=== PATIENT | female | born 1940 | race Caucasian/White ===

== ENCOUNTER → 2017-01-06 | Outpatient (CLI) | payer MEDICARE, BC | LOC: MW.CHENT 08:00 | PROVIDERS: ATTEND Otolaryngology | DX: H91.22 Sudden idiopathic hearing loss, left ear (principal); I10 Essential (primary) hypertension | CPT/HCPCS: 99204 ==

== ENCOUNTER 2017-07-20 14:17 | Inpatient (IN) | payer MEDICARE, BC ==
--- NOTE | 2017-07-20 14:27 | EDM.PDOC ---
ED HPI GENERAL MEDICAL PROBLEM - General Stated Complaint: CHEST PAIN Time Seen by Provider: 07/20/17 14:27 Source of Information: Reports: Patient History Limitations: Reports: No Limitations - History of Present Illness INITIAL COMMENTS - FREE TEXT/NARRATIVE: HISTORY AND PHYSICAL: []77-year-old female presenting because of epigastric /chest pain History of Present Illness: [] was seen in [place] started on Protonix daily Pain has worsened over the last 2 days reading 05/27 Patient has chronic atrial fibrillation and is on warfarin Patient has mild dementia As seen in [place] July 07 with elevated INR medication for 2 days then resumed Review of Systems: As per history of present illness and below otherwise all systems reviewed and negative. Past medical history: As per history of present illness and as reviewed below otherwise noncontributory. Surgical history: As per history of present illness and as reviewed below otherwise noncontributory. Social history: No reported history of drug or alcohol abuse. Family history: As per history of present illness and as reviewed below otherwise noncontributory. Physical exam: Alert and oriented female who is quite anxious. Accompanied By her daughter. Patient is very anxious feeling weak. HEENT: Atraumatic, normocehpalic, pupils reactive, negative for conjunctival pallor or scleral icterus, mucous membranes moist, throat clear, neck supple, nontender, trachea midline. Lungs: Clear to auscultation, breath sounds equal bilaterally, chest non tender. Heart: S1S2, regular, negative for clicks, rubs, or JVD. Abdomen: Soft, nondistended, exquisitely tender to mid epigastric with light palpation. Negative for masses or hepatossplenmegaly. Negative for costovertebral tenderness. No rebound no guarding Pelvis: Stable nontender. Genitourinary: Deferred. Rectal: Deferred Extremities: Atraumatic, negative for cords or calf pain. Neurovascular unremarkable. Neuro: Awake, alert, oriented. Cranial nerves II through XII unremarkable. Cerebellum unremarkable. Motor and sensory unremarkable throughout. Exam nonfocal. Patient is quite anxious and fecal Hemoccult was obtained and was mildly positive Have discussed case with Dr. Pepe Pleitez who is in agreement for observation due to weakness, elevated INR, positive fecal Hemoccult Diagnostics: [CBC CMP amylase lipase troponin EKG chest x-ray] Therapeutics: []IV fluid Pepcid GI cocktail Impression: []Epigastric pain Elevated INR/ hypercoagulable state Positive fecal occult Plan: [] Definitive disposition and diagnosis as appropriate pending reevaluation and review of above. Onset: Gradual Duration: Day(s): (3), Getting Worse Location: Reports: Chest, Abdomen Left Chest Pain Score (Numeric/FACES): 10 - Related Data Allergies Allergy/AdvReac Type Severity Reaction Status Date / Time No Known Allergies Allergy Verified 07/20/17 14:41 Home Meds: Home Meds Aspirin [Lo-Dose Aspirin EC] 81 mg PO DAILY 07/20/17 [History] Diltiazem [Cardizem CD] 120 mg PO DAILY 07/20/17 [History] Docusate Sodium 250 mg PO ASDIRECTED 07/20/17 [History] Losartan/Hydrochlorothiazide [Losartan-HCTZ 100-25 MG] 1 tab PO DAILY 07/20/17 [ History] Mag Carb/Al Hydrox/Alginic Ac [Gaviscon Liquid] 1 tsp PO TIDAC 07/20/17 [History ] Pantoprazole Sodium [Protonix] 40 mg PO DAILY 07/20/17 [History] Potassium Chloride [Klor-Con 10] 10 meq PO BID 07/20/17 [History] Warfarin Sodium [Jantoven] 2 mg PO ASDIRECTED 07/20/17 [History] ED ROS GENERAL - Review of Systems Review Of Systems: ROS reveals no pertinent complaints other than HPI. ED EXAM, GENERAL - Physical Exam Exam: See Below (see dictation) Course - Vital Signs Last Recorded V/S: Last Vital Signs Temp 36.9 C 07/20/17 14:33 Pulse 70 07/20/17 15:08 Resp 20 07/20/17 15:08 BP 147/104 H 07/20/17 15:08 Pulse Ox 98 07/20/17 15:08 - Orders/Labs/Meds Orders: Active Orders 24 hr Category Date Time Status Cardiac Monitoring [RC] . DIRECTED Care 07/20/17 14:38 Active EKG Documentation Completion [RC] STAT Care 07/20/17 14:38 Active Fecal Occult Blood Collection [RC] ASDIRECTED Care 07/20/17 15:39 Ordered Oxygen Therapy, ED [RC] ASDIRECTED Care 07/20/17 14:38 Active Chest 1V Frontal [CR] Stat Exams 07/20/17 14:38 Taken CULTURE URINE [RM] Stat Lab 07/20/17 14:38 Uncollected UA W/MICROSCOPIC [URIN] Stat Lab 07/20/17 14:38 Uncollected Sodium Chloride 0.9% [Saline Flush] Med 07/20/17 14:38 Active 10 ml FLUSH ASDIRECTED PRN Sodium Chloride 0.9% [Saline Flush] Med 07/20/17 14:38 Active 2.5 ml FLUSH ASDIRECTED PRN Saline Lock Insert [OM.PC] Stat Oth 07/20/17 14:38 Ordered Medication Orders Sodium Chloride (Saline Flush) 10 ml FLUSH ASDIRECTED PRN PRN Reason: Keep Vein Open Sodium Chloride (Saline Flush) 2.5 ml FLUSH ASDIRECTED PRN PRN Reason: Keep Vein Open Labs: Laboratory Tests 07/20/17 07/20/17 07/20/17 Range/Units 14:30 14:30 14:30 WBC 9.68 (4.0-11.0) K/uL RBC 3.88 L (4.30-5.90) M/uL Hgb 12.4 (12.0-16.0) g/dL Hct 37.5 (36.0-46.0) % MCV 96.6 (80.0-98.0) fL MCH 32.0 (27.0-32.0) pg MCHC 33.1 (31.0-37.0) g/dL RDW Std Deviation 48.7 (28.0-62.0) fl RDW Coeff of [place] 14 (11.0-15.0) % Plt Count 252 (150-400) K/uL MPV 12.20 H (7.40-12.00) fL Neut % (Auto) 74.9 (48.0-80.0) % Lymph % (Auto) 13.6 L (16.0-40.0) % [place] % (Auto) 7.3 (0.0-15.0) % Eos % (Auto) 3.6 (0.0-7.0) % Baso % (Auto) 0.6 (0.0-1.5) % Neut # (Auto) 7.2 H (1.4-5.7) K/uL Lymph # (Auto) 1.3 (0.6-2.4) K/uL [place] # (Auto) 0.7 (0.0-0.8) K/uL Eos # (Auto) 0.4 (0.0-0.7) K/uL Baso # (Auto) 0.1 (0.0-0.1) K/uL Nucleated RBC % 0.0 /100WBC Nucleated RBCs # 0 K/uL INR 6.15 H (0.86-1.11) Sodium 140 (136-146) mmol/L Potassium 3.3 L (3.5-5.1) mmol/L Chloride 106 (98-110) mmol/L Carbon Dioxide 24 (21-31) mmol/L BUN 17 (6.0-23.0) mg/dL Creatinine 1.3 (0.6-1.5) mg/dL Est Cr Clr Drug Dosing 29.03 mL/min Estimated GFR (MDRD) 39.5 ml/min Glucose 129 H (60-110) mg/dL Calcium 9.1 (8.8-10.8) mg/dL Total Bilirubin 2.2 H (0.1-1.5) mg/dL AST 24 (5-40) IU/L ALT 49 (8-54) IU/L Alkaline Phosphatase 82 (40-150) Troponin I < 0.10 (0.0-0.29) NG/ML Total Protein 7.0 (6.0-8.0) g/dL Albumin 3.7 (3.4-4.8) g/dL Globulin 3.3 (2.0-3.5) g/dL Albumin/Globulin Ratio 1.1 L (1.3-2.8) Amylase 39 (10-90) U/L Lipase 28 (7-80) U/L Meds: Medications Generic Name Dose Route Start Last Admin Trade Name Freq PRN Reason Stop Dose Admin Sodium Chloride 10 ml 07/20/17 14:38 Saline Flush FLUSH ASDIRECTED PRN Keep Vein Open Sodium Chloride 2.5 ml 07/20/17 14:38 Saline Flush FLUSH ASDIRECTED PRN Keep Vein Open Discontinued Medications Generic Name Dose Route Start Last Admin Trade Name Freq PRN Reason Stop Dose Admin Al Hydroxide/Mg Hydroxide 15 0 ml 07/20/17 14:42 12/03/17 14:55 ml/ Metoclopramide HCl 5 mg/ PO 07/20/17 14:43 1 each Lidocaine HCl 5 ml ONETIME ONE Administration Famotidine 20 mg 07/20/17 14:37 07/20/17 14:47 Pepcid IVPUSH 07/20/17 14:38 20 mg ONETIME ONE Administration Sodium Chloride 1,000 mls @ 999 mls/hr 07/20/17 14:37 07/20/17 14:45 Normal Saline IV 07/20/17 15:37 999 mls/hr STAT ONE Administration Departure - Departure Time of Disposition: 15:48 Disposition: Refer to Observation Condition: Fair Clinical Impression: Weakness generalized Referrals: Charly Nicole MD [Primary Care Provider] - Additional Instructions: The following information is given to patients seen in the emergency department who are being discharged to home. This information is to outline your options for follow-up care. We provide all patients seen in our emergency department with a follow-up referral. The need for follow-up, as well as the timing and circumstances, are variable depending upon the specifics of your emergency department visit. If you don't have a primary care physician on staff, we will provide you with a referral. We always advise you to contact your personal physician following an emergency department visit to inform them of the circumstance of the visit and for follow-up with them and/or the need for any referrals to a consulting specialist. The emergency department will also refer you to a specialist when appropriate. This referral assures that you have the opportunity for followup care with a specialist. All of these measure are taken in an effort to provide you with optimal care, which includes your followup. Under all circumstances we always encourage you to contact your private physician who remains a resource for coordinating your care. When calling for followup care, please make the office aware that this follow-up is from your recent emergency room visit. If for any reason you are refused follow-up, please contact the [facility] emergency department at and asked to speak to the emergency department charge nurse. - My Orders Last 24 Hours: My Active Orders 07/20/17 14:38 Cardiac Monitoring [RC] . DIRECTED EKG Documentation Completion [RC] STAT Oxygen Therapy, ED [RC] ASDIRECTED Chest 1V Frontal [CR] Stat CULTURE URINE [RM] Stat UA W/MICROSCOPIC [URIN] Stat Sodium Chloride 0.9% [Saline Flush] 10 ml FLUSH ASDIRECTED PRN Sodium Chloride 0.9% [Saline Flush] 2.5 ml FLUSH ASDIRECTED PRN Saline Lock Insert [OM.PC] Stat 07/20/17 15:39 Fecal Occult Blood Collection [RC] ASDIRECTED - Assessment/Plan Last 24 Hours: My Active Orders 07/20/17 14:38 Cardiac Monitoring [RC] . DIRECTED EKG Documentation Completion [RC] STAT Oxygen Therapy, ED [RC] ASDIRECTED Chest 1V Frontal [CR] Stat CULTURE URINE [RM] Stat UA W/MICROSCOPIC [URIN] Stat Sodium Chloride 0.9% [Saline Flush] 10 ml FLUSH ASDIRECTED PRN Sodium Chloride 0.9% [Saline Flush] 2.5 ml FLUSH ASDIRECTED PRN Saline Lock Insert [OM.PC] Stat 07/20/17 15:39 Fecal Occult Blood Collection [RC] ASDIRECTED
[2017-07-20] MEDS ORDERED: Sodium Chloride 0.9% 1,000 ML IV ONE (14:37)
[2017-07-20] MEDS ORDERED: Famotidine 20 MG/2 ML SDV IVPUSH ONE (14:37)
[2017-07-20] MEDS ORDERED: Sodium Chloride 0.9% 2.5 ML Syringe FLUSH PRN (14:38)
[2017-07-20] MEDS ORDERED: Sodium Chloride 0.9% 10 ML Syringe FLUSH PRN (14:38)
[2017-07-20] MEDS ORDERED: Alum Hydrox/Mag Hydrox/Simeth 15 ML, Metoclopramide 5 MG, Lidocaine 2% 5 ML PO ONE ×3 (14:42)
[2017-07-20 15:10] LABS: CHLORIDE,CL 106 mmol/L (98-110); SODIUM,NA 140 mmol/L (136-146)
--- NOTE | 2017-07-20 17:35 | PCM.HP ---
H&P History of Present Illness - General Date of Service: 07/20/17 Admit Problem/Dx: Weakness Source of Information: Patient, Family History Limitations: Reports: No Limitations - History of Present Illness Initial Comments - Free Text/Narative: 77-year-old female presenting to emergency department with generalized weakness and epigastric pain with PMH of A. fib rate controlled on warfarin, hypertension , and GERD. Patient is coming by her daughter who helps with history. They state that her generalized weakness began on June 29 where she was also having some epigastric "heartburn" pain. States that she just felt "ill" with associated generalized muscle aches. This seemed to resolve over the next few days. However , on July 07 she began to have severe epigastric pain as well as some weakness. She did see the clinic in [facility] where labs were drawn showing an elevation of her INR to 5.4. She was given a GI cocktail, prescribed a PPI, and told to hold her warfarin. She did well through but on Friday began to feel "ill" with generalized body ache on Friday07/19/17. This morning she had severe heartburn so her daughter brought her to the emergency room. She states that she gets her INR checked in [facility]. In the emergency department CBC, CMP, and troponin were unremarkable. Chest x- ray showed cardiomegaly and mild interstitial edema. INR was elevated to 6.15. She was also Hemoccult positive. Patient's daughter does bring the paperwork from [facility] which has different instructions then her warfarin pill bottle instructions. Her current pill bottle instructions say to take 1 tab on Friday while taking 1- 1/2 tabs on Friday and Friday. The paperwork from [facility] says 1 tab Friday and half a tab Friday. Patient has no known drug allergies and sees Dr. Nicole at [facility] as her primary care physician. Patient was admitted for generalized weakness. She also has positive stool and elevated INR of 6.15. Left Chest Pain Score (Numeric/FACES): 10 Epigastric Pain Score (Numeric/FACES): 5 - Related Data Allergies/Adverse Reactions: Allergies Allergy/AdvReac Type Severity Reaction Status Date / Time No Known Allergies Allergy Verified 07/20/17 14:41 Home Medications: Home Meds Aspirin [Lo-Dose Aspirin EC] 81 mg PO DAILY 07/20/17 [History] Diltiazem [Cardizem CD] 120 mg PO DAILY 07/20/17 [History] Docusate Sodium 250 mg PO ASDIRECTED 07/20/17 [History] Losartan/Hydrochlorothiazide [Losartan-HCTZ 100-25 MG] 1 tab PO DAILY 07/20/17 [ History] Mag Carb/Al Hydrox/Alginic Ac [Gaviscon Liquid] 1 tsp PO TIDAC 07/20/17 [History ] Pantoprazole Sodium [Protonix] 40 mg PO DAILY 07/20/17 [History] Potassium Chloride [Klor-Con 10] 10 meq PO BID 07/20/17 [History] Warfarin Sodium [Jantoven] 2 mg PO ASDIRECTED 07/20/17 [History] Past Medical History HEENT History: Reports: Impaired Vision Cardiovascular History: Reports: Afib, Hypertension Gastrointestinal History: Reports: GERD - Infectious Disease History Infectious Disease History: Reports: Chicken Pox, Measles, Mumps Social & Family History - Family History Family Medical History: Noncontributory - Tobacco Use Smoking Status *Q: Never Smoker - Recreational Drug Use Recreational Drug Use: No H&P Review of Systems - Review of Systems: Review Of Systems: See Below General: Denies: Fever, Chills, Malaise HEENT: Denies: Dysphasia Pulmonary: Denies: Shortness of Breath, Wheezing Cardiovascular: Denies: Chest Pain, Palpitations Gastrointestinal: Denies: Abdominal Pain, Anorexia, Black Stool Genitourinary: Denies: Dysuria Musculoskeletal: Denies: Neck Pain, Leg Pain Skin: Reports: No Symptoms Psychiatric: Denies: Confusion, Depression, Anxiety Neurological: Denies: Confusion, Dizziness, Headache Exam - Exam Exam: See Below - Vital Signs Vital Signs: Last Vital Signs Temp 98.5 F 07/20/17 14:33 Pulse 75 07/20/17 16:07 Resp 20 07/20/17 16:07 BP 149/92 H 07/20/17 16:07 Pulse Ox 95 07/20/17 16:07 Weight: 77.5 kg - Exam Quality Assessment: DVT Prophylaxis General: Alert, Oriented, Cooperative HEENT: Conjunctiva Clear, EACs Clear, EOMI, Hearing Intact, Mucosa Moist & [place] , Nares Patent, Normal Nasal Septum, Posterior Pharynx Clear, PERRLA Neck: Supple, Trachea Midline, 2 Lungs: Clear to Auscultation, Normal Respiratory Effort Cardiovascular: Regular Rate, Regular Rhythm, Systolic Murmur GI/Abdominal Exam: Normal Bowel Sounds, Soft, Non-Tender, No Organomegaly, No Distention Back Exam: Normal Inspection Extremities: Normal Inspection, Normal Range of Motion, Non-Tender, No Pedal Edema, Normal Capillary Refill Skin: Warm, Dry, Intact Neurological: Cranial Nerves Intact, Reflexes Equal Bilateral Neuro Extensive - Mental Status: Alert, Oriented x3, Normal Mood/Affect, Normal Cognition Neuro Extensive - Motor, Sensory, Reflexes: CN II-XII Intact, Normal Gait, Normal Reflexes Psychiatric: Alert, Normal Affect, Normal Mood - Patient Data Lab Results Last 24 hrs: Laboratory Results - last 24 hr 07/20/17 Range/Units 16:38 Urine Color YELLOW Urine Appearance CLEAR Urine pH 6.0 (5.0-8.0) Ur Specific [place] <= 1.005 (1.001-1.035) Urine Protein NEGATIVE (NEGATIVE) mg/dL Urine Glucose (UA) NEGATIVE (NEGATIVE) mg/dL Urine Ketones NEGATIVE (NEGATIVE) mg/dL Urine Occult Blood MODERATE (NEGATIVE) Urine Nitrite NEGATIVE (NEGATIVE) Urine Bilirubin NEGATIVE (NEGATIVE) Urine Urobilinogen 0.2 (<2.0) EU/dL Ur Leukocyte Esterase NEGATIVE (NEGATIVE) Urine RBC 3-5 (0-2/HPF) Urine WBC 0-3 (0-5/HPF) Ur Epithelial Cells FEW (NONE-FEW) Urine Bacteria FEW (NEGATIVE) Result Diagrams: 07/20/17 14:30 07/20/17 14:30 *Q Meaningful Use (ADM) - VTE *Q VTE Criteria *Q: - Stroke *Q Stroke Criteria *Q: - AMI *Q AMI Criteria *Q: - Problem List (1) Atrial fibrillation with controlled ventricular rate SNOMED Code(s): 25364773 ICD Code: I48.91 - UNSPECIFIED ATRIAL FIBRILLATION Status: Acute Current Visit: Yes (2) Weakness generalized SNOMED Code(s): 06103037 ICD Code: R53.1 - WEAKNESS Status: Acute Current Visit: Yes (3) Hypertension SNOMED Code(s): 32443578 ICD Code: I10 - ESSENTIAL (PRIMARY) HYPERTENSION Status: Acute Current Visit: Yes Problem List Initiated/Reviewed/Updated: Yes Orders Last 24hrs: Medication Orders Sodium Chloride (Saline Flush) 10 ml FLUSH ASDIRECTED PRN PRN Reason: Keep Vein Open Sodium Chloride (Saline Flush) 2.5 ml FLUSH ASDIRECTED PRN PRN Reason: Keep Vein Open Assessment/Plan Comment:: 77 yo female admitted 07/20/17 for generalized weakness and epigastric pain with pmh of a-fib rate controlled on coumadin, Htn, and GERD Generalized weakness: Vague symptoms. May be partial viral or related to her epigastric pain see below will monitor. Epigastric Pain: Cardiac low likely most likely GERD. Patient INR elevated above 6 she may be having some gastric bleeding as well. Did hemoccult in ED which was positive for blood. Will start PPI IV. Will need EGD. Elevated INR: Hold Coumadin. See HPI as patient records from [facility] have different dosing than what was on her prescription bottle they have with them. Bottle 1 tab M,W,F and 1 1/2 tab T, Th, Sat, Sun while [facility] records have 1 tab M,W,F and 1/2 tab T,Th, Sat, Sun. A-fib rate controlled: Holding Coumadin. Placed on Tele Stable now Htn: Home baseline as per patient is in the 150's systolic normally. We will restart her home meds now but may need adjustment as patient status improves. VTE: SCD, hold pharm secondary to hemoccult + stool. Dispo: 1-2 days PCP Yusef
[2017-07-20] MEDS ORDERED: Ondansetron 4 MG Tab.DIS PO PRN (19:12)
[2017-07-20] MEDS ORDERED: Potassium Chloride 20 MEQ Tab.ER PO ONE (19:19)
[2017-07-20] MEDS: Pantoprazole 80 MG in Sodium Chloride 0.9% 100 ML IV SCH (20:27)
[2017-07-20] MEDS: Potassium Chloride 10 MEQ Tab.ER PO SCH (20:28)
[2017-07-21] MEDS: Pantoprazole 80 MG in Sodium Chloride 0.9% 100 ML IV SCH ×2 (05:17→15:32)
[2017-07-21] MEDS: Potassium Chloride 10 MEQ Tab.ER PO SCH ×2 (08:48→20:01)
[2017-07-21] MEDS: Diltiazem 120 MG Cap.CD PO SCH (08:48)
[2017-07-21] MEDS ORDERED: Phytonadione 5 MG Tab PO ONE (08:57)
--- NOTE | 2017-07-21 09:48 | PCM.PN ---
- General Info Date of Service: 07/21/17 Functional Status: Reports: Pain Controlled, Tolerating Diet - Review of Systems General: Reports: No Symptoms HEENT: Reports: No Symptoms Pulmonary: Reports: No Symptoms Cardiovascular: Reports: No Symptoms Gastrointestinal: Reports: No Symptoms Genitourinary: Reports: No Symptoms Musculoskeletal: Reports: No Symptoms Skin: Reports: No Symptoms Neurological: Reports: No Symptoms Psychiatric: Reports: No Symptoms - Patient Data Vitals - Most Recent: Last Vital Signs Temp 98.6 F 07/21/17 08:00 Pulse 79 07/21/17 08:48 Resp 18 07/21/17 08:00 BP 160/72 H 07/21/17 08:48 Pulse Ox 94 L 07/21/17 08:00 Weight - Most Recent: 77.5 kg I&O - Last 24 Hours: Intake & Output 07/20/17 07/21/17 07/21/17 22:59 06:59 14:59 Intake Total 496 Output Total 750 Balance -254 Lab Results Last 24 Hours: Laboratory Results - last 24 hr 07/20/17 07/20/17 07/21/17 Range/Units 16:38 19:33 05:30 WBC 7.74 (4.0-11.0) K/uL RBC 3.57 L (4.30-5.90) M/uL Hgb 11.3 L (12.0-16.0) g/dL Hct 34.6 L (36.0-46.0) % MCV 96.9 (80.0-98.0) fL MCH 31.7 (27.0-32.0) pg MCHC 32.7 (31.0-37.0) g/dL RDW Std Deviation 49.6 (28.0-62.0) fl RDW Coeff of Hannah 14 (11.0-15.0) % Plt Count 208 (150-400) K/uL MPV 11.90 (7.40-12.00) fL Neut % (Auto) 66.2 (48.0-80.0) % Lymph % (Auto) 16.8 (16.0-40.0) % [place] % (Auto) 9.8 (0.0-15.0) % Eos % (Auto) 6.7 (0.0-7.0) % Baso % (Auto) 0.5 (0.0-1.5) % Neut # (Auto) 5.1 (1.4-5.7) K/uL Lymph # (Auto) 1.3 (0.6-2.4) K/uL [place] # (Auto) 0.8 (0.0-0.8) K/uL Eos # (Auto) 0.5 (0.0-0.7) K/uL Baso # (Auto) 0.0 (0.0-0.1) K/uL Nucleated RBC % 0.0 /100WBC Nucleated RBCs # 0 K/uL INR 7.01 H* (0.86-1.11) Sodium (136-146) mmol/L Potassium (3.5-5.1) mmol/L Chloride (98-110) mmol/L Carbon Dioxide (21-31) mmol/L BUN (6.0-23.0) mg/dL Creatinine (0.6-1.5) mg/dL Est Cr Clr Drug Dosing mL/min Estimated GFR (MDRD) ml/min Glucose (60-110) mg/dL Calcium (8.8-10.8) mg/dL Phosphorus (2.4-4.7) mg/dL Magnesium (1.5-2.3) mEq/L Urine Color YELLOW Urine Appearance CLEAR Urine pH 6.0 (5.0-8.0) Ur Specific [place] <= 1.005 (1.001-1.035) Urine Protein NEGATIVE (NEGATIVE) mg/dL Urine Glucose (UA) NEGATIVE (NEGATIVE) mg/dL Urine Ketones NEGATIVE (NEGATIVE) mg/dL Urine Occult Blood MODERATE (NEGATIVE) Urine Nitrite NEGATIVE (NEGATIVE) Urine Bilirubin NEGATIVE (NEGATIVE) Urine Urobilinogen 0.2 (<2.0) EU/dL Ur Leukocyte Esterase NEGATIVE (NEGATIVE) Urine RBC 3-5 (0-2/HPF) Urine WBC 0-3 (0-5/HPF) Ur Epithelial Cells FEW (NONE-FEW) Urine Bacteria FEW (NEGATIVE) 07/21/17 07/21/17 Range/Units 05:30 05:30 WBC (4.0-11.0) K/uL RBC (4.30-5.90) M/uL Hgb (12.0-16.0) g/dL Hct (36.0-46.0) % MCV (80.0-98.0) fL MCH (27.0-32.0) pg MCHC (31.0-37.0) g/dL RDW Std Deviation (28.0-62.0) fl RDW Coeff of Hannah (11.0-15.0) % Plt Count (150-400) K/uL MPV (7.40-12.00) fL Neut % (Auto) (48.0-80.0) % Lymph % (Auto) (16.0-40.0) % [place] % (Auto) (0.0-15.0) % Eos % (Auto) (0.0-7.0) % Baso % (Auto) (0.0-1.5) % Neut # (Auto) (1.4-5.7) K/uL Lymph # (Auto) (0.6-2.4) K/uL [place] # (Auto) (0.0-0.8) K/uL Eos # (Auto) (0.0-0.7) K/uL Baso # (Auto) (0.0-0.1) K/uL Nucleated RBC % /100WBC Nucleated RBCs # K/uL INR 6.86 H (0.86-1.11) Sodium 142 (136-146) mmol/L Potassium 3.7 (3.5-5.1) mmol/L Chloride 110 (98-110) mmol/L Carbon Dioxide 24 (21-31) mmol/L BUN 30 H (6.0-23.0) mg/dL Creatinine 1.3 (0.6-1.5) mg/dL Est Cr Clr Drug Dosing 29.03 mL/min Estimated GFR (MDRD) 39.5 ml/min Glucose 98 (60-110) mg/dL Calcium 8.5 L (8.8-10.8) mg/dL Phosphorus 2.8 (2.4-4.7) mg/dL Magnesium 1.7 (1.5-2.3) mEq/L Urine Color Urine Appearance Urine pH (5.0-8.0) Ur Specific [place] (1.001-1.035) Urine Protein (NEGATIVE) mg/dL Urine Glucose (UA) (NEGATIVE) mg/dL Urine Ketones (NEGATIVE) mg/dL Urine Occult Blood (NEGATIVE) Urine Nitrite (NEGATIVE) Urine Bilirubin (NEGATIVE) Urine Urobilinogen (<2.0) EU/dL Ur Leukocyte Esterase (NEGATIVE) Urine RBC (0-2/HPF) Urine WBC (0-5/HPF) Ur Epithelial Cells (NONE-FEW) Urine Bacteria (NEGATIVE) [place] Results Last 24 Hours: Microbiology 07/20/17 22:34 Influenza Type A Antigen Screen - Final Nasopharyngeal Swab - Nare, Left NEGATIVE INFLUENZA A VIRUS AG Influenza Type B Antigen Screen - Final NEGATIVE INFLUENZA B VIRUS AG Med Orders - Current: Current Medications Acetaminophen (Tylenol) 650 mg PO Q4H PRN PRN Reason: Pain (Mild 1-3)/fever Diltiazem HCl (Cardizem Cd) 120 mg PO DAILY [facility] Last Admin: 07/21/17 08:48 Dose: 120 mg Pantoprazole Sodium 80 mg/ (Sodium Chloride) 100 mls @ 10 mls/hr IV Q10H [facility] Last Admin: 07/21/17 05:17 Dose: 10 mls/hr Ondansetron HCl (Zofran Odt) 4 mg PO Q4H PRN PRN Reason: nausea, able to take PO Potassium Chloride (Klor-Con 10) 10 meq PO BID [facility] Last Admin: 07/21/17 08:48 Dose: 10 meq Sodium Chloride (Saline Flush) 10 ml FLUSH ASDIRECTED PRN PRN Reason: Keep Vein Open Sodium Chloride (Saline Flush) 2.5 ml FLUSH ASDIRECTED PRN PRN Reason: Keep Vein Open Discontinued Medications Al Hydroxide/Mg Hydroxide 15 ml/ Metoclopramide HCl 5 mg/Lidocaine HCl 5 ml 0 ml PO ONETIME ONE Stop: 07/20/17 14:43 Last Admin: 07/20/17 14:55 Dose: 1 each Famotidine (Pepcid) 20 mg IVPUSH ONETIME ONE Stop: 07/20/17 14:38 Last Admin: 07/20/17 14:47 Dose: 20 mg Sodium Chloride (Normal Saline) 1,000 mls @ 999 mls/hr IV STAT ONE Stop: 07/20/17 15:37 Last Admin: 07/20/17 14:45 Dose: 999 mls/hr Phytonadione (Mephyton) 5 mg PO ONETIME ONE Stop: 07/21/17 08:58 Phytonadione (Aquamephyton) 5 mg SUBCUT ONETIME ONE Stop: 07/21/17 09:13 Potassium Chloride (Klor-Con M20) 40 meq PO ONETIME ONE Stop: 07/20/17 19:20 Last Admin: 07/20/17 19:54 Dose: 40 meq - Exam General: Alert, Oriented HEENT: Pupils Equal, EOMI Neck: Supple Lungs: Decreased Breath Sounds Cardiovascular: Regular Rate, Regular Rhythm GI/Abdominal Exam: Normal Bowel Sounds, Soft Back Exam: Normal Inspection Extremities: Normal Inspection Skin: Warm, Dry, Intact Neurological: No New Focal Deficit Psy/Mental Status: Alert, Normal Affect, Normal Mood - Problem List Review Problem List Initiated/Reviewed/Updated: Yes - Plan Plan:: 77 yo female admitted 07/20/17 for generalized weakness and epigastric pain with pmh of a-fib rate controlled on coumadin, Htn, and GERD Generalized weakness: Vague symptoms. May be partial viral or related to her epigastric pain see below will monitor. Epigastric Pain: Cardiac low likely most likely GERD/gastritis. hemoccult positive for blood. Will start PPI IV. HB 11.3. Will need EGD as outpatient. Currently no evidence of bleeding Elevated INR: Hold Coumadin. No evidence of bleeding. INR 6.87: vitamin K s/c 5 mg x 1 since no oral vitamin K available. Recheck INR in am. A-fib rate controlled: Holding Coumadin. Placed on Tele Stable now Htn: Home baseline as per patient is in the 150's systolic normally. We will restart her home meds now but may need adjustment as patient status improves. VTE: SCD, hold pharm secondary to hemoccult + stool. Dispo: 1-2 days PCP Yusef
[2017-07-21] MEDS: Acetaminophen 325 MG Tab PO PRN (15:40)
--- NOTE | 2017-07-21 15:59 | CR ---
EXAM DATE: 07/20/17 PATIENT'S AGE: 77 Patient: VITALY ESTRADA Facility: [place], [place] Site . Site : [id number] Study: XRay Chest [id number] 3:20:01 PM Ordering Physician: Doctor Spencer Final Report: INDICATION: pain/sob INDICATION: Pain/shortness of breath. TECHNIQUE: Chest 1 view. COMPARISON: None FINDINGS: Cardiovascular and mediastinum: Cardiac enlargement, which may be exaggerated by portable technique. Mediastinum is within normal limits. Lungs and pleural space: Interstitial type opacities with an apicobasilar gradient. Edema is suspected. No sign of mass. No sign of pleural effusion. No pneumothorax. Bones and soft tissues: No significant findings. IMPRESSION: 1. Cardiomegaly. 2. Mild interstitial edema. Dictated by Josiah Greenberg MD @ 07/20/2017 3:47:19 PM Dictated by: Josiah Greenberg MD @ 07/20/2017 15:47:28 (Electronic Signature) Report Signed by Proxy. [facility]
[2017-07-21] MEDS ORDERED: Hydrochlorothiazide/Losartan 12.5-50 mg Tab PO ONE (23:40)
[2017-07-22] MEDS: Pantoprazole 80 MG in Sodium Chloride 0.9% 100 ML IV SCH ×3 (01:44→20:15)
[2017-07-22] MEDS: Acetaminophen 325 MG Tab PO PRN (05:13)
--- NOTE | 2017-07-22 08:35 | PCM.PN ---
- General Info Date of Service: 07/22/17 Subjective Update: c/o of epigastrium pain. She seems anxious and worried. - Review of Systems General: Reports: No Symptoms HEENT: Reports: No Symptoms Pulmonary: Reports: No Symptoms Cardiovascular: Reports: No Symptoms Gastrointestinal: Reports: Abdominal Pain, Other (epigastric) Musculoskeletal: Reports: No Symptoms Skin: Reports: No Symptoms Neurological: Reports: No Symptoms Psychiatric: Reports: No Symptoms - Patient Data Vitals - Most Recent: Last Vital Signs Temp 97.4 F 07/22/17 04:00 Pulse 105 H 07/22/17 04:00 Resp 20 07/22/17 04:00 BP 154/106 H 07/22/17 05:00 Pulse Ox 89 L 07/22/17 04:00 Weight - Most Recent: 77.5 kg I&O - Last 24 Hours: Intake & Output 07/21/17 07/22/17 07/22/17 22:59 06:59 14:59 Intake Total 1350 900 Output Total 1050 1700 Balance 300 -800 Lab Results Last 24 Hours: Laboratory Results - last 24 hr 07/22/17 07/22/17 07/22/17 Range/Units 04:53 04:53 04:53 WBC 10.86 (4.0-11.0) K/uL RBC 3.76 L (4.30-5.90) M/uL Hgb 11.8 L (12.0-16.0) g/dL Hct 36.2 (36.0-46.0) % MCV 96.3 (80.0-98.0) fL MCH 31.4 (27.0-32.0) pg MCHC 32.6 (31.0-37.0) g/dL RDW Std Deviation 47.6 (28.0-62.0) fl RDW Coeff of Hannah 14 (11.0-15.0) % Plt Count 215 (150-400) K/uL MPV 12.90 H (7.40-12.00) fL Neut % (Auto) 75.2 (48.0-80.0) % Lymph % (Auto) 9.9 L (16.0-40.0) % [place] % (Auto) 8.5 (0.0-15.0) % Eos % (Auto) 5.8 (0.0-7.0) % Baso % (Auto) 0.6 (0.0-1.5) % Neut # (Auto) 8.2 H (1.4-5.7) K/uL Lymph # (Auto) 1.1 (0.6-2.4) K/uL [place] # (Auto) 0.9 H (0.0-0.8) K/uL Eos # (Auto) 0.6 (0.0-0.7) K/uL Baso # (Auto) 0.1 (0.0-0.1) K/uL Nucleated RBC % 0.0 /100WBC Nucleated RBCs # 0 K/uL INR 5.20 H (0.86-1.11) Sodium 140 (136-146) mmol/L Potassium 3.1 L (3.5-5.1) mmol/L Chloride 107 (98-110) mmol/L Carbon Dioxide 24 (21-31) mmol/L BUN 26 H (6.0-23.0) mg/dL Creatinine 1.0 (0.6-1.5) mg/dL Est Cr Clr Drug Dosing 37.73 mL/min Estimated GFR (MDRD) 53.5 ml/min Glucose 105 (60-110) mg/dL Calcium 9.1 (8.8-10.8) mg/dL [place] Results Last 24 Hours: Microbiology 07/20/17 16:38 Urine Culture - Final Urine, Clean Catch MIXED JUSTIN >100,000 CFU/ML 07/21/17 06:20 Stool Occult Blood ([place]) - Final Stool / Feces - Stool, Formed NEGATIVE OCCULT BLOOD Med Orders - Current: Current Medications Acetaminophen (Tylenol) 650 mg PO Q4H PRN PRN Reason: Pain (Mild 1-3)/fever Last Admin: 07/22/17 05:13 Dose: 650 mg Diltiazem HCl (Cardizem Cd) 120 mg PO DAILY [facility] Last Admin: 07/21/17 08:48 Dose: 120 mg HCTZ/Losartan Potassium (Hyzaar 50-12.5 Mg) 2 tab PO DAILY [facility] Pantoprazole Sodium 80 mg/ (Sodium Chloride) 100 mls @ 10 mls/hr IV Q10H [facility] Last Admin: 07/22/17 01:44 Dose: 10 mls/hr Ceftriaxone Sodium/Dextrose 1 (gm/ Premix) 50 mls @ 100 mls/hr IV Q24H [facility] Ondansetron HCl (Zofran Odt) 4 mg PO Q4H PRN PRN Reason: nausea, able to take PO Potassium Chloride (Klor-Con 10) 10 meq PO BID [facility] Last Admin: 07/21/17 20:01 Dose: 10 meq Sodium Chloride (Saline Flush) 10 ml FLUSH ASDIRECTED PRN PRN Reason: Keep Vein Open Sodium Chloride (Saline Flush) 2.5 ml FLUSH ASDIRECTED PRN PRN Reason: Keep Vein Open Discontinued Medications Aspirin (Halfprin) 81 mg PO DAILY [facility] Al Hydroxide/Mg Hydroxide 15 ml/ Metoclopramide HCl 5 mg/Lidocaine HCl 5 ml 0 ml PO ONETIME ONE Stop: 07/20/17 14:43 Last Admin: 07/20/17 14:55 Dose: 1 each Famotidine (Pepcid) 20 mg IVPUSH ONETIME ONE Stop: 07/20/17 14:38 Last Admin: 07/20/17 14:47 Dose: 20 mg HCTZ/Losartan Potassium (Hyzaar 50-12.5 Mg) 2 tab PO STAT ONE Stop: 07/21/17 23:41 Last Admin: 07/22/17 00:09 Dose: 2 tab Sodium Chloride (Normal Saline) 1,000 mls @ 999 mls/hr IV STAT ONE Stop: 07/20/17 15:37 Last Admin: 07/20/17 14:45 Dose: 999 mls/hr Pantoprazole Sodium (Protonix) 40 mg PO DAILY [facility] Phytonadione (Mephyton) 5 mg PO ONETIME ONE Stop: 07/21/17 08:58 Last Admin: 07/21/17 10:20 Dose: Not Given Phytonadione (Aquamephyton) 5 mg SUBCUT ONETIME ONE Stop: 07/21/17 09:13 Last Admin: 07/21/17 09:47 Dose: 5 mg Phytonadione (Aquamephyton) 5 mg SUBCUT ONETIME ONE Stop: 07/22/17 08:22 Potassium Chloride (Klor-Con M20) 40 meq PO ONETIME ONE Stop: 07/20/17 19:20 Last Admin: 07/20/17 19:54 Dose: 40 meq - Exam General: Alert, Oriented HEENT: Pupils Equal, EOMI Lungs: Decreased Breath Sounds Cardiovascular: Regular Rate, Regular Rhythm GI/Abdominal Exam: Normal Bowel Sounds, Soft Back Exam: Normal Inspection Extremities: Normal Inspection Skin: Warm, Dry, Intact Neurological: No New Focal Deficit Psy/Mental Status: Alert, Normal Affect, Normal Mood - Problem List & Annotations (1) UTI (urinary tract infection) SNOMED Code(s): 97680065 Code(s): N39.0 - URINARY TRACT INFECTION, SITE NOT SPECIFIED Status: Acute Current Visit: Yes - Problem List Review Problem List Initiated/Reviewed/Updated: Yes - My Orders Last 24 Hours: My Active Orders 07/22/17 08:30 cefTRIAXone [Rocephin] 1,000 mg Sodium Chloride 0.9% [Normal Saline] 50 ml IV Q24H - Plan Plan:: 77 yo female admitted 07/20/17 for generalized weakness and epigastric pain with pmh of a-fib rate controlled on coumadin, Htn, and GERD Generalized weakness: most likely UTI: start rocephin. urine culture Greater than 100,000 awaiting sensitivities. Epigastric Pain: Cardiac low likely most likely GERD/gastritis. PPI IV. HB 11.8. Will need EGD as outpatient. Currently no evidence of bleeding Elevated INR: Hold Coumadin. No evidence of bleeding. INR 5.20: vitamin K s/c 5 mg x 1. She received one dose yesterday. Recheck INR in am. A-fib rate controlled: Holding Coumadin. Placed on Telemetry: no arrhythmias noted. HTN: Home baseline as per patient is in the 150's systolic normally. We will restart her home meds now but may need adjustment as patient status improves. VTE: SC Dispo: 1-2 days PCP Yusef Washington spoke to the daughter today where she stated that her INR has been in range of 7 since June 27. She was taken to ED on jul 14 in [facility] and she was told resumed warfarin.
[2017-07-22] MEDS ORDERED: Potassium Chloride 20 MEQ Tab.ER PO ONE (08:51)
[2017-07-22] MEDS: Diltiazem 120 MG Cap.CD PO SCH (08:57)
[2017-07-22] MEDS: Potassium Chloride 10 MEQ Tab.ER PO SCH ×2 (08:57→20:00)
[2017-07-22] MEDS: Hydrochlorothiazide/Losartan 12.5-50 mg Tab PO SCH (08:57)
[2017-07-22] MEDS ORDERED: Aspirin 81 MG Tab.EC PO SCH (09:00)
[2017-07-22] MEDS ORDERED: Pantoprazole 40 MG Tab.CR PO SCH (09:00)
[2017-07-22] MEDS: cefTRIAXone 1 GM in Premix Bag 1 BAG IV SCH (09:25)
[2017-07-22] MEDS ORDERED: cloNIDine 0.1 MG Tab PO ONE (20:31)
[2017-07-23] MEDS: Pantoprazole 80 MG in Sodium Chloride 0.9% 100 ML IV SCH (06:21)
[2017-07-23] MEDS: cefTRIAXone 1 GM in Premix Bag 1 BAG IV SCH (07:58)
[2017-07-23] MEDS: Potassium Chloride 10 MEQ Tab.ER PO SCH (08:01)
[2017-07-23] MEDS: Diltiazem 120 MG Cap.CD PO SCH (08:02)
[2017-07-23] MEDS: Hydrochlorothiazide/Losartan 12.5-50 mg Tab PO SCH (08:03)
[2017-07-23] MEDS ORDERED: Potassium Chloride 10% 20 MEQ/15 ML Soln 30 ML UD Cup PO ONE (08:38)
--- NOTE | 2017-07-23 10:33 | PCM.DCSUM1 ---
Discharge Summary - Hospital Course Free Text/Narrative:: 77-year-old female presenting to emergency department with generalized weakness and epigastrium pain with PMH of A. fib rate controlled on warfarin, hypertension, and GERD. She states that her generalized weakness began on June 29 where she was also having some epigastric "heartburn" pain. States that she just felt "ill" with associated generalized muscle aches. This seemed to resolve over the next few days. However, on July 07 she began to have severe epigastric pain as well as some weakness. She did see the clinic in [facility] where labs were drawn showing an elevation of her INR to 5.4. She was given a GI cocktail, prescribed a PPI, and told to hold her warfarin. She did well through but on Friday began to feel "ill" with generalized body ache on Friday07/19/17. This morning she had severe heartburn so her daughter brought her to the emergency room. She states that she gets her INR checked in [facility] which has been elevated around 7-9 for the past month. Patient's daughter does bring the paperwork from [facility] which has different instructions then her warfarin pill bottle instructions. Her current pill bottle instructions say to take 1 tab on Friday while taking 1- 1/2 tabs on Friday and Friday. The paperwork from [facility] says 1 tab Friday and half a tab Friday. In the emergency department CBC, CMP, and troponin were unremarkable. Chest x-ray showed cardiomegaly and mild interstitial edema. INR was elevated to 6.15. She was also Hemoccult positive. Her HB on admission 12.4. Her Coumadin was held. IV protonix was started. Her INR is elevated to 7.01. She was given vitamin K SC 5 mg x1 since there is was not oral K available. Her INR was decreased to 5.20 where the next day another vitamin K 5mg sc given. She did not have active bleed. She had a repeat hemoccult which was negative. Her Hemoglobin was 11.8. Her UA was negative but she had a positive urine culture. She was started on Rocephin. Her epigastrium pain improved. Her potassium is around 3 during hospitalization. It was repleted daily. Her Hb is 11.2 on the day discharge. INR 1.90. She is discharged in stable condition. Her daughter will manage her medications and give her a pill box so she takes her medications appropriately. She is to follow with Dr. Nguyen next week. She is to have EGD done as outpatient where an appointment was scheduled. Discharge DX Epigastrium pain elevated INR weakness UTI Anemia Discharge medications Restart coumadin 1 mg po daily KCL 40 mg PO QD x 5 days until further evaluation by PCP. Increase her home medication of protonix 40 mg po bid. Keflex 500 mg po bid x 5 days. - Discharge Data Discharge Date: 07/23/17 Discharge Disposition: Home, Self-Care 01 Condition: Fair - Discharge Diagnosis/Problem(s) (1) UTI (urinary tract infection) SNOMED Code(s): 03814928 ICD Code: N39.0 - URINARY TRACT INFECTION, SITE NOT SPECIFIED Status: Acute Current Visit: Yes - Patient Instructions Diet: Heart Healthy Diet Activity: As Tolerated Driving: Do Not Drive Notify Provider of: Fever, Increased Pain, Swelling and Redness, Drainage, Nausea and/or Vomiting - Discharge Plan Prescriptions/Med Rec: Cephalexin [Keflex] 500 mg PO BID #10 capsule Pantoprazole Sodium [Protonix] 40 mg PO BID #60 tablet. Potassium Chloride [Klor-Con 10] 40 meq PO WITHBREAKFAST #5 tab.er Warfarin [Coumadin] 1 mg PO DAILY #30 tablet Home Medications: Home Meds Aspirin [Lo-Dose Aspirin EC] 81 mg PO DAILY 07/20/17 [History] Diltiazem [Cardizem CD] 120 mg PO DAILY 07/20/17 [History] Docusate Sodium 250 mg PO ASDIRECTED 07/20/17 [History] Losartan/Hydrochlorothiazide [Losartan-HCTZ 100-25 MG] 1 tab PO DAILY 07/20/17 [ History] Mag Carb/Al Hydrox/Alginic Ac [Gaviscon Liquid] 1 tsp PO TIDAC 07/20/17 [History ] Cephalexin [Keflex] 500 mg PO BID #10 capsule 07/23/17 [Rx] Pantoprazole Sodium [Protonix] 40 mg PO BID #60 tablet. 07/23/17 [Rx] Potassium Chloride [Klor-Con 10] 40 meq PO WITHBREAKFAST #5 tab.er 07/23/17 [Rx] Warfarin [Coumadin] 1 mg PO DAILY #30 tablet 07/23/17 [Rx] Patient Handouts: Esophagogastroduodenoscopy, Potassium Salts tablets, extended -release tablets or capsules, Heart-Healthy Eating Plan, [id number], Weakness , [id number], Warfarin tablets, Cephalexin tablets or capsules, Pantoprazole tablets Referrals: [facility] [Outside] Charly Nicole MD [Primary Care Provider] - 07/31/17 10:30 am - General Info Date of Service: 07/23/17 - Review of Systems General: Reports: No Symptoms HEENT: Reports: No Symptoms Pulmonary: Reports: No Symptoms Cardiovascular: Reports: No Symptoms Gastrointestinal: Reports: Other (episgastric pain improved) Genitourinary: Reports: No Symptoms Musculoskeletal: Reports: No Symptoms Skin: Reports: No Symptoms Neurological: Reports: No Symptoms Psychiatric: Reports: No Symptoms - Patient Data Vitals - Most Recent: Last Vital Signs Temp 98.8 F 07/23/17 08:00 Pulse 86 07/23/17 08:02 Resp 16 07/23/17 08:00 BP 153/76 H 07/23/17 08:02 Pulse Ox 96 07/23/17 08:00 Weight - Most Recent: 76.3 kg I&O - Last 24 hours: Intake & Output 07/22/17 07/23/17 07/23/17 22:59 06:59 14:59 Intake Total 708 553 Output Total 1450 1220 Balance -042 -747 Lab Results - Last 24 hrs: Laboratory Results - last 24 hr 07/23/17 07/23/17 07/23/17 Range/Units 04:41 04:41 04:41 WBC 9.57 (4.0-11.0) K/uL RBC 3.57 L (4.30-5.90) M/uL Hgb 11.2 L (12.0-16.0) g/dL Hct 34.1 L (36.0-46.0) % MCV 95.5 (80.0-98.0) fL MCH 31.4 (27.0-32.0) pg MCHC 32.8 (31.0-37.0) g/dL RDW Std Deviation 47.0 (28.0-62.0) fl RDW Coeff of Hannah 14 (11.0-15.0) % Plt Count 205 (150-400) K/uL MPV 12.40 H (7.40-12.00) fL Neut % (Auto) 70.2 (48.0-80.0) % Lymph % (Auto) 13.7 L (16.0-40.0) % [place] % (Auto) 8.9 (0.0-15.0) % Eos % (Auto) 6.6 (0.0-7.0) % Baso % (Auto) 0.6 (0.0-1.5) % Neut # (Auto) 6.7 H (1.4-5.7) K/uL Lymph # (Auto) 1.3 (0.6-2.4) K/uL [place] # (Auto) 0.9 H (0.0-0.8) K/uL Eos # (Auto) 0.6 (0.0-0.7) K/uL Baso # (Auto) 0.1 (0.0-0.1) K/uL Nucleated RBC % 0.0 /100WBC Nucleated RBCs # 0 K/uL INR 1.90 H (0.86-1.11) Sodium 141 (136-146) mmol/L Potassium 3.0 L (3.5-5.1) mmol/L Chloride 105 (98-110) mmol/L Carbon Dioxide 26 (21-31) mmol/L BUN 25 H (6.0-23.0) mg/dL Creatinine 1.0 (0.6-1.5) mg/dL Est Cr Clr Drug Dosing 37.73 mL/min Estimated GFR (MDRD) 53.5 ml/min Glucose 96 (60-110) mg/dL Calcium 8.8 (8.8-10.8) mg/dL Med Orders - Current: Current Medications Acetaminophen (Tylenol) 650 mg PO Q4H PRN PRN Reason: Pain (Mild 1-3)/fever Last Admin: 07/22/17 05:13 Dose: 650 mg Diltiazem HCl (Cardizem Cd) 120 mg PO DAILY [facility] Last Admin: 07/23/17 08:02 Dose: 120 mg HCTZ/Losartan Potassium (Hyzaar 50-12.5 Mg) 2 tab PO DAILY [facility] Last Admin: 07/23/17 08:03 Dose: 2 tab Pantoprazole Sodium 80 mg/ (Sodium Chloride) 100 mls @ 10 mls/hr IV Q10H [facility] Last Admin: 07/23/17 06:21 Dose: 10 mls/hr Ceftriaxone Sodium/Dextrose 1 (gm/ Premix) 50 mls @ 100 mls/hr IV Q24H [facility] Last Admin: 07/23/17 07:58 Dose: 100 mls/hr Ondansetron HCl (Zofran Odt) 4 mg PO Q4H PRN PRN Reason: nausea, able to take PO Potassium Chloride (Klor-Con 10) 10 meq PO BID [facility] Last Admin: 07/23/17 08:01 Dose: 10 meq Sodium Chloride (Saline Flush) 10 ml FLUSH ASDIRECTED PRN PRN Reason: Keep Vein Open Sodium Chloride (Saline Flush) 2.5 ml FLUSH ASDIRECTED PRN PRN Reason: Keep Vein Open Discontinued Medications Aspirin (Halfprin) 81 mg PO DAILY [facility] Clonidine HCl (Catapres) 0.2 mg PO ONETIME ONE Stop: 07/22/17 20:32 Last Admin: 07/22/17 21:04 Dose: 0.2 mg Al Hydroxide/Mg Hydroxide 15 ml/ Metoclopramide HCl 5 mg/Lidocaine HCl 5 ml 0 ml PO ONETIME ONE Stop: 07/20/17 14:43 Last Admin: 07/20/17 14:55 Dose: 1 each Famotidine (Pepcid) 20 mg IVPUSH ONETIME ONE Stop: 07/20/17 14:38 Last Admin: 07/20/17 14:47 Dose: 20 mg HCTZ/Losartan Potassium (Hyzaar 50-12.5 Mg) 2 tab PO STAT ONE Stop: 07/21/17 23:41 Last Admin: 07/22/17 00:09 Dose: 2 tab Sodium Chloride (Normal Saline) 1,000 mls @ 999 mls/hr IV STAT ONE Stop: 07/20/17 15:37 Last Admin: 07/20/17 14:45 Dose: 999 mls/hr Pantoprazole Sodium (Protonix) 40 mg PO DAILY [facility] Phytonadione (Mephyton) 5 mg PO ONETIME ONE Stop: 07/21/17 08:58 Last Admin: 07/21/17 10:20 Dose: Not Given Phytonadione (Aquamephyton) 5 mg SUBCUT ONETIME ONE Stop: 07/21/17 09:13 Last Admin: 07/21/17 09:47 Dose: 5 mg Phytonadione (Aquamephyton) 5 mg SUBCUT ONETIME ONE Stop: 07/22/17 08:22 Last Admin: 07/22/17 10:54 Dose: 5 mg Potassium Chloride (Klor-Con M20) 40 meq PO ONETIME ONE Stop: 07/20/17 19:20 Last Admin: 07/20/17 19:54 Dose: 40 meq Potassium Chloride (Klor-Con M20) 40 meq PO ONETIME ONE Stop: 07/22/17 08:52 Last Admin: 07/22/17 09:26 Dose: 40 meq Potassium Chloride (Potassium Chloride) 40 meq PO ONETIME ONE Stop: 07/23/17 08:39 Last Admin: 07/23/17 10:10 Dose: 40 meq - Exam General: Reports: Alert, Oriented, Cooperative, No Acute Distress HEENT: Reports: Pupils Equal, EOMI Neck: Reports: Supple, Trachea Midline Lungs: Reports: Clear to Auscultation, Normal Respiratory Effort Cardiovascular: Reports: Regular Rate, Regular Rhythm GI/Abdominal Exam: Normal Bowel Sounds, Soft, Non-Tender Back Exam: Reports: Normal Inspection, Full Range of Motion Extremities: Normal Inspection Skin: Reports: Warm, Dry, Intact Neurological: Reports: No New Focal Deficit Psy/Mental Status: Reports: Alert, Normal Affect, Normal Mood *Q Meaningful Use (DIS) - VTE *Q VTE Criteria *Q: - Stroke *Q Stroke Criteria *Q: - AMI *Q AMI Criteria *Q:
== END 2017-07-23 12:10 | disposition home or self-care (01) | DRG 690 ==
LOC: MW.ED 14:17 → MW.MS 16:11 → OBSVTOIN 07-22 08:43 → MW.MS 07-22 18:19
PROVIDERS: ADMIT Family Medicine; ATTEND Family Medicine
DX: N39.0 Urinary tract infection, site not specified (principal); R10.13 Epigastric pain; F03.90 Unspecified dementia, unspecified severity, without behavioral disturbance, psychotic disturbance, mood disturbance, and anxiety; R53.1 Weakness; R79.1 Abnormal coagulation profile; D64.9 Anemia, unspecified; I48.2 Chronic atrial fibrillation; I10 Essential (primary) hypertension; K21.9 Gastro-esophageal reflux disease without esophagitis; Z79.01 Long term (current) use of anticoagulants; Z79.899 Other long term (current) drug therapy
CPT/HCPCS: 36415 ×3; 71010; 80048 ×2; 80053; 81001; 82150; 82272; 83690; 83735; 84100; 84484; 85025 ×3; 85610 ×4; 87086; 87804 ×2; 93005; 96361; 96374; 99285; A9270 ×10; C9113 ×4; J3430; J7030 ×4; J7040; 96365; 96366; 96372; 96375; G0378; J0696

== ENCOUNTER 2017-09-09 12:24 | Inpatient (IN) | payer MEDICARE, BC ==
[2017-09-09] MEDS ORDERED: methylPREDNISolone Sodium Succinate 125 MG/2 ML SDV IVPUSH ONE (12:39)
[2017-09-09] MEDS ORDERED: Albuterol/Ipratropium 3.0-0.5 MG/3 ML Neb Soln NEB ONE (12:39)
[2017-09-09] MEDS ORDERED: Ondansetron 4 MG/2 ML SDV IVPUSH ONE (12:40)
--- NOTE | 2017-09-09 12:41 | EDM.PDOC ---
ED HPI GENERAL MEDICAL PROBLEM - General Chief Complaint: Respiratory Problem Stated Complaint: SHORTNESS OF BREATH, VOMITTING AND COUGHTING Time Seen by Provider: 09/09/17 12:41 Source of Information: Reports: Patient - History of Present Illness INITIAL COMMENTS - FREE TEXT/NARRATIVE: HISTORY AND PHYSICAL: History of present illness: [] Review of systems: As per history of present illness and below otherwise all systems reviewed and negative. Past medical history: As per history of present illness and as reviewed below otherwise noncontributory. Surgical history: As per history of present illness and as reviewed below otherwise noncontributory. Social history: No reported history of drug or alcohol abuse. Family history: As per history of present illness and as reviewed below otherwise noncontributory. Physical exam: HEENT: Atraumatic, normocephalic, pupils reactive, negative for conjunctival pallor or scleral icterus, mucous membranes moist, throat clear, neck supple, nontender, trachea midline. Lungs: Clear to auscultation, breath sounds equal bilaterally, chest nontender. Heart: S1S2, regular, negative for clicks, rubs, or JVD. Abdomen: Soft, nondistended, nontender. Negative for masses or hepatosplenomegaly. Negative for costovertebral tenderness. Pelvis: Stable nontender. Genitourinary: Deferred. Rectal: Deferred. Extremities: Atraumatic, negative for cords or calf pain. Neurovascular unremarkable. Neuro: Awake, alert, oriented. Cranial nerves II through XII unremarkable. Cerebellum unremarkable. Motor and sensory unremarkable throughout. Exam nonfocal. Diagnostics: [CBC CMP cardiac enzymes Chest 1 view EKG Influenza ] Therapeutics: Normal saline 1 25 mL per hour Zofran 8 mg IV DuoNeb Solu-Medrol Lasix 20 mg IV ] Coumadin Impression: Nausea vomiting Shortness of breath CHF Chronic history of baseline Supratherapeutic INR ] Definitive disposition and diagnosis as appropriate pending reevaluation and review of above. Generalized Pain Score (Numeric/FACES): 8 - Related Data Allergies Allergy/AdvReac Type Severity Reaction Status Date / Time No Known Allergies Allergy Verified 07/20/17 14:41 Home Meds: Home Meds Aspirin [Lo-Dose Aspirin EC] 81 mg PO DAILY 07/20/17 [History] Diltiazem [Cardizem CD] 120 mg PO DAILY 07/20/17 [History] Docusate Sodium 250 mg PO ASDIRECTED 07/20/17 [History] Losartan/Hydrochlorothiazide [Losartan-HCTZ 100-25 MG] 1 tab PO DAILY 07/20/17 [ History] Mag Carb/Al Hydrox/Alginic Ac [Gaviscon Liquid] 1 tsp PO TIDAC 07/20/17 [History ] Cephalexin [Keflex] 500 mg PO BID #10 capsule 07/23/17 [Rx] Pantoprazole Sodium [Protonix] 40 mg PO BID #60 tablet.dr 07/23/17 [Rx] Potassium Chloride [Klor-Con 10] 40 meq PO WITHBREAKFAST #5 tab.er 07/23/17 [Rx] Warfarin [Coumadin] 1 mg PO DAILY #30 tablet 07/23/17 [Rx] Past Medical History HEENT History: Reports: Impaired Vision Cardiovascular History: Reports: Afib, Hypertension Gastrointestinal History: Reports: GERD Neurological History: Reports: Other (See Below) Other Neuro History: Mild dementia - Infectious Disease History Infectious Disease History: Reports: Chicken Pox, Measles, Mumps - Past Surgical History Female Surgical History: Reports: Hysterectomy Musculoskeletal Surgical History: Reports: Knee Replacement, Other (See Below) Other Musculoskeletal Surgeries/Procedures:: left knee replacement Social & Family History - Family History Family Medical History: Noncontributory - Tobacco Use Smoking Status *Q: Never Smoker Used Tobacco, but Quit: Yes Month Tobacco Last Used: 1987 Second Hand Smoke Exposure: No - Caffeine Use Caffeine Use: Reports: Coffee, Soda, Tea - Recreational Drug Use Recreational Drug Use: No ED ROS GENERAL - Review of Systems Review Of Systems: ROS reveals no pertinent complaints other than HPI. ED EXAM, GENERAL - Physical Exam Exam: See Below Course - Vital Signs Last Recorded V/S: Last Vital Signs Temp 97.1 F 09/09/17 12:41 Pulse 107 H 09/09/17 12:41 Resp 18 09/09/17 12:41 BP 169/110 H 09/09/17 12:41 Pulse Ox 92 L 09/09/17 12:41 - Orders/Labs/Meds Orders: Active Orders 24 hr Category Date Time Status EKG Documentation Completion [RC] STAT Care 09/09/17 12:40 Active RT Aerosol Therapy [RC] ASDIRECTED Care 09/09/17 12:40 Active INFLUENZA A+B AG SCREEN [RM] Stat Lab 09/09/17 12:52 Received UA W/MICROSCOPIC [URIN] Stat Lab 09/09/17 12:39 Uncollected Furosemide [Lasix] Med 09/09/17 14:02 Once 20 mg IVPUSH NOW ONE Sodium Chloride 0.9% [Normal Saline] 1,000 ml Med 09/09/17 12:45 Active IV STAT Medication Orders Sodium Chloride (Normal Saline) 1,000 mls @ 125 mls/hr IV STAT BONI Labs: Laboratory Tests 09/09/17 09/09/17 09/09/17 Range/Units 12:55 12:55 12:55 WBC 11.08 H (4.0-11.0) K/uL RBC 3.29 L (4.30-5.90) M/uL Hgb 9.1 L (12.0-16.0) g/dL Hct 28.8 L (36.0-46.0) % MCV 87.5 (80.0-98.0) fL MCH 27.7 (27.0-32.0) pg MCHC 31.6 (31.0-37.0) g/dL RDW Std Deviation 47.0 (28.0-62.0) fl RDW Coeff of Hannah 15 (11.0-15.0) % Plt Count 305 (150-400) K/uL MPV 10.90 (7.40-12.00) fL Neut % (Auto) 81.4 H (48.0-80.0) % Lymph % (Auto) 8.7 L (16.0-40.0) % [place] % (Auto) 8.6 (0.0-15.0) % Eos % (Auto) 0.9 (0.0-7.0) % Baso % (Auto) 0.4 (0.0-1.5) % Neut # (Auto) 9.0 H (1.4-5.7) K/uL Lymph # (Auto) 1.0 (0.6-2.4) K/uL [place] # (Auto) 1.0 H (0.0-0.8) K/uL Eos # (Auto) 0.1 (0.0-0.7) K/uL Baso # (Auto) 0.0 (0.0-0.1) K/uL Nucleated RBC % 0.0 /100WBC Nucleated RBCs # 0 K/uL INR 6.71 Sodium 141 (136-146) mmol/L Potassium 3.5 (3.5-5.1) mmol/L Chloride 107 (98-110) mmol/L Carbon Dioxide 23 (21-31) mmol/L BUN 30 H (6.0-23.0) mg/dL Creatinine 1.2 (0.6-1.5) mg/dL Est Cr Clr Drug Dosing 32.83 mL/min Estimated GFR (MDRD) 43.3 ml/min Glucose 120 H (60-110) mg/dL Calcium 9.2 (8.8-10.8) mg/dL Total Bilirubin 2.5 H (0.1-1.5) mg/dL AST 16 (5-40) IU/L ALT 27 (8-54) IU/L Alkaline Phosphatase 88 (40-150) Creatine Kinase 24 (9-236) IU/L CK-MB (CK-2) 1.6 (0-6.6) ng/ml Troponin I < 0.10 (0.0-0.29) NG/ML B-Natriuretic Peptide (<100) PG/ML Total Protein 6.9 (6.0-8.0) g/dL Albumin 3.5 (3.4-4.8) g/dL Globulin 3.4 (2.0-3.5) g/dL Albumin/Globulin Ratio 1.0 L (1.3-2.8) 09/09/17 Range/Units 12:55 WBC (4.0-11.0) K/uL RBC (4.30-5.90) M/uL Hgb (12.0-16.0) g/dL Hct (36.0-46.0) % MCV (80.0-98.0) fL MCH (27.0-32.0) pg MCHC (31.0-37.0) g/dL RDW Std Deviation (28.0-62.0) fl RDW Coeff of Hannah (11.0-15.0) % Plt Count (150-400) K/uL MPV (7.40-12.00) fL Neut % (Auto) (48.0-80.0) % Lymph % (Auto) (16.0-40.0) % [place] % (Auto) (0.0-15.0) % Eos % (Auto) (0.0-7.0) % Baso % (Auto) (0.0-1.5) % Neut # (Auto) (1.4-5.7) K/uL Lymph # (Auto) (0.6-2.4) K/uL [place] # (Auto) (0.0-0.8) K/uL Eos # (Auto) (0.0-0.7) K/uL Baso # (Auto) (0.0-0.1) K/uL Nucleated RBC % /100WBC Nucleated RBCs # K/uL INR Sodium (136-146) mmol/L Potassium (3.5-5.1) mmol/L Chloride (98-110) mmol/L Carbon Dioxide (21-31) mmol/L BUN (6.0-23.0) mg/dL Creatinine (0.6-1.5) mg/dL Est Cr Clr Drug Dosing mL/min Estimated GFR (MDRD) ml/min Glucose (60-110) mg/dL Calcium (8.8-10.8) mg/dL Total Bilirubin (0.1-1.5) mg/dL AST (5-40) IU/L ALT (8-54) IU/L Alkaline Phosphatase (40-150) Creatine Kinase (9-236) IU/L CK-MB (CK-2) (0-6.6) ng/ml Troponin I (0.0-0.29) NG/ML B-Natriuretic Peptide 971 H (<100) PG/ML Total Protein (6.0-8.0) g/dL Albumin (3.4-4.8) g/dL Globulin (2.0-3.5) g/dL Albumin/Globulin Ratio (1.3-2.8) Meds: Medications Generic Name Dose Route Start Last Admin Trade Name Freq PRN Reason Stop Dose Admin Sodium Chloride 1,000 mls @ 125 mls/hr 09/09/17 12:45 Normal Saline IV STAT BONI Discontinued Medications Generic Name Dose Route Start Last Admin Trade Name Freq PRN Reason Stop Dose Admin Albuterol/Ipratropium 3 ml 09/09/17 12:39 09/09/17 13:00 Duoneb 3.0-0.5 Mg/3 Ml NEB 09/09/17 12:40 3 ml ONETIME ONE Administration Lorazepam 0.5 mg 09/09/17 12:44 09/09/17 13:01 Ativan IVPUSH 09/09/17 12:45 0.5 mg ONETIME ONE Administration Methylprednisolone Sodium Succinate 125 mg 09/09/17 12:39 09/09/17 13:01 Solu-Medrol IVPUSH 09/09/17 12:40 125 mg ONETIME ONE Administration Ondansetron HCl 8 mg 09/09/17 12:40 09/09/17 13:00 Zofran IVPUSH 09/09/17 12:41 8 mg ONETIME ONE Administration Pantoprazole Sodium 80 mg 09/09/17 13:43 Protonix Iv IVPUSH 09/09/17 13:44 .BOLUS ONE Departure - Departure Time of Disposition: 14:03 Disposition: Admitted As Inpatient 64 Condition: Fair Clinical Impression: CHF (congestive heart failure), Supratherapeutic INR - Discharge Information Referrals: PCP,None [Primary Care Provider] - Forms: ED Department Discharge - My Orders Last 24 Hours: My Active Orders 09/09/17 12:39 UA W/MICROSCOPIC [URIN] Stat 09/09/17 12:40 EKG Documentation Completion [RC] STAT RT Aerosol Therapy [RC] ASDIRECTED 09/09/17 12:45 Sodium Chloride 0.9% [Normal Saline] 1,000 ml IV STAT 09/09/17 12:52 INFLUENZA A+B AG SCREEN [RM] Stat 09/09/17 14:02 Furosemide [Lasix] 20 mg IVPUSH NOW ONE - Assessment/Plan Last 24 Hours: My Active Orders 09/09/17 12:39 UA W/MICROSCOPIC [URIN] Stat 09/09/17 12:40 EKG Documentation Completion [RC] STAT RT Aerosol Therapy [RC] ASDIRECTED 09/09/17 12:45 Sodium Chloride 0.9% [Normal Saline] 1,000 ml IV STAT 09/09/17 12:52 INFLUENZA A+B AG SCREEN [RM] Stat 09/09/17 14:02 Furosemide [Lasix] 20 mg IVPUSH NOW ONE
[2017-09-09] MEDS ORDERED: LORazepam 2 MG/ML MDV IVPUSH ONE (12:44)
[2017-09-09] MEDS ORDERED: Sodium Chloride 0.9% 1,000 ML IV SCH (12:45)
--- NOTE | 2017-09-09 13:33 | CR ---
EXAMINATION: Portable chest radiograph. HISTORY: Shortness of breath. FINDINGS: The trachea is midline. Heart is borderline in size. The cardiomediastinal silhouette is within anel l limits. Mild bibasilar atelectasis and/or infiltrate. No pleural effusion or pneumothorax. Osseous structures appear unremarkable. IMPRESSION: No acute cardiopulmonary process. Mild bibasilar atelectasis and/or infiltrate. Correlate for pneumon ia versus edema.
[2017-09-09] MEDS ORDERED: Pantoprazole 40 MG Vial IVPUSH ONE (13:43)
[2017-09-09 13:44] LABS: CHLORIDE,CL 107 mmol/L (98-110); SODIUM,NA 141 mmol/L (136-146)
[2017-09-09] MEDS ORDERED: Furosemide 40 MG/4 ML VIAL IVPUSH ONE ×2 (14:02→19:00)
--- NOTE | 2017-09-09 15:27 | PCM.HP ---
H&P History of Present Illness - General Admit Problem/Dx: Admission Diagnosis/Problem Admission Diagnosis/Problem CHF, Congestive heart failure - History of Present Illness Initial Comments - Free Text/Narative: 77 yo female who presents with three day history of nausea and vomiting. Last night she reported she felt horrible with myalgias and shortness of breath, chest congestion and cough. She denies any leg edema but reports sleeping at about a 45% incline. She denied any fevers, chills, hematemesis, melana or diarrhea. CXR done in ED reported mild bibasilar infiltrate. Patient has a history of admission for GI bleed with supratheraputic INR last month. She was given vitamin K during that admission. Two weeks ago she reported had an INR of around 2. Generalized Pain Score (Numeric/FACES): 8 - Related Data Allergies/Adverse Reactions: Allergies Allergy/AdvReac Type Severity Reaction Status Date / Time No Known Allergies Allergy Verified 07/20/17 14:41 Home Medications: Home Meds Aspirin [Lo-Dose Aspirin EC] 81 mg PO DAILY 07/20/17 [History] Diltiazem [Cardizem CD] 120 mg PO DAILY 07/20/17 [History] Docusate Sodium 250 mg PO ASDIRECTED 07/20/17 [History] Losartan/Hydrochlorothiazide [Losartan-HCTZ 100-25 MG] 1 tab PO DAILY 07/20/17 [ History] Potassium Chloride [Klor-Con 10] 40 meq PO BID 09/09/17 [History] Warfarin Sodium [Jantoven] 2 mg PO DAILY 09/09/17 [History] Past Medical History HEENT History: Reports: Impaired Vision Cardiovascular History: Reports: Afib, Hypertension Gastrointestinal History: Reports: GERD Neurological History: Reports: Other (See Below) Other Neuro History: Mild dementia - Infectious Disease History Infectious Disease History: Reports: Chicken Pox, Measles, Mumps - Past Surgical History Female Surgical History: Reports: Hysterectomy Musculoskeletal Surgical History: Reports: Knee Replacement, Other (See Below) Other Musculoskeletal Surgeries/Procedures:: left knee replacement Social & Family History - Family History Family Medical History: Noncontributory - Tobacco Use Smoking Status *Q: Never Smoker Used Tobacco, but Quit: Yes Month Tobacco Last Used: 1987 Second Hand Smoke Exposure: No - Caffeine Use Caffeine Use: Reports: Coffee, Soda, Tea - Recreational Drug Use Recreational Drug Use: No H&P Review of Systems - Review of Systems: Review Of Systems: ROS reveals no pertinent complaints other than HPI. Exam - Exam Exam: See Below - Vital Signs Vital Signs: Last Vital Signs Temp 36.2 C 09/09/17 12:41 Pulse 107 H 09/09/17 12:41 Resp 18 09/09/17 12:41 BP 169/110 H 09/09/17 12:41 Pulse Ox 92 L 09/09/17 12:41 Weight: 70.307 kg - Exam General: Alert, Oriented Neck: JVD Lungs: Normal Respiratory Effort, Decreased Breath Sounds Cardiovascular: Regular Rate, Regular Rhythm GI/Abdominal Exam: Soft, Non-Tender Extremities: Non-Tender, Pedal Edema (mild) Skin: Warm, Dry, Intact Neurological: No: Focal Deficit - Patient Data Lab Results Last 24 hrs: Laboratory Results - last 24 hr 09/09/17 09/09/17 09/09/17 Range/Units 12:55 12:55 12:55 WBC 11.08 H (4.0-11.0) K/uL RBC 3.29 L (4.30-5.90) M/uL Hgb 9.1 L (12.0-16.0) g/dL Hct 28.8 L (36.0-46.0) % MCV 87.5 (80.0-98.0) fL MCH 27.7 (27.0-32.0) pg MCHC 31.6 (31.0-37.0) g/dL RDW Std Deviation 47.0 (28.0-62.0) fl RDW Coeff of Hannah 15 (11.0-15.0) % Plt Count 305 (150-400) K/uL MPV 10.90 (7.40-12.00) fL Neut % (Auto) 81.4 H (48.0-80.0) % Lymph % (Auto) 8.7 L (16.0-40.0) % Jay % (Auto) 8.6 (0.0-15.0) % Eos % (Auto) 0.9 (0.0-7.0) % Baso % (Auto) 0.4 (0.0-1.5) % Neut # (Auto) 9.0 H (1.4-5.7) K/uL Lymph # (Auto) 1.0 (0.6-2.4) K/uL Jay # (Auto) 1.0 H (0.0-0.8) K/uL Eos # (Auto) 0.1 (0.0-0.7) K/uL Baso # (Auto) 0.0 (0.0-0.1) K/uL Nucleated RBC % 0.0 /100WBC Nucleated RBCs # 0 K/uL INR 6.71 Sodium 141 (136-146) mmol/L Potassium 3.5 (3.5-5.1) mmol/L Chloride 107 (98-110) mmol/L Carbon Dioxide 23 (21-31) mmol/L BUN 30 H (6.0-23.0) mg/dL Creatinine 1.2 (0.6-1.5) mg/dL Est Cr Clr Drug Dosing 32.83 mL/min Estimated GFR (MDRD) 43.3 ml/min Glucose 120 H (60-110) mg/dL Calcium 9.2 (8.8-10.8) mg/dL Total Bilirubin 2.5 H (0.1-1.5) mg/dL AST 16 (5-40) IU/L ALT 27 (8-54) IU/L Alkaline Phosphatase 88 (40-150) Creatine Kinase 24 (9-236) IU/L CK-MB (CK-2) 1.6 (0-6.6) ng/ml Troponin I < 0.10 (0.0-0.29) NG/ML B-Natriuretic Peptide (<100) PG/ML Total Protein 6.9 (6.0-8.0) g/dL Albumin 3.5 (3.4-4.8) g/dL Globulin 3.4 (2.0-3.5) g/dL Albumin/Globulin Ratio 1.0 L (1.3-2.8) 09/09/17 Range/Units 12:55 WBC (4.0-11.0) K/uL RBC (4.30-5.90) M/uL Hgb (12.0-16.0) g/dL Hct (36.0-46.0) % MCV (80.0-98.0) fL MCH (27.0-32.0) pg MCHC (31.0-37.0) g/dL RDW Std Deviation (28.0-62.0) fl RDW Coeff of Hannah (11.0-15.0) % Plt Count (150-400) K/uL MPV (7.40-12.00) fL Neut % (Auto) (48.0-80.0) % Lymph % (Auto) (16.0-40.0) % Jay % (Auto) (0.0-15.0) % Eos % (Auto) (0.0-7.0) % Baso % (Auto) (0.0-1.5) % Neut # (Auto) (1.4-5.7) K/uL Lymph # (Auto) (0.6-2.4) K/uL Jay # (Auto) (0.0-0.8) K/uL Eos # (Auto) (0.0-0.7) K/uL Baso # (Auto) (0.0-0.1) K/uL Nucleated RBC % /100WBC Nucleated RBCs # K/uL INR Sodium (136-146) mmol/L Potassium (3.5-5.1) mmol/L Chloride (98-110) mmol/L Carbon Dioxide (21-31) mmol/L BUN (6.0-23.0) mg/dL Creatinine (0.6-1.5) mg/dL Est Cr Clr Drug Dosing mL/min Estimated GFR (MDRD) ml/min Glucose (60-110) mg/dL Calcium (8.8-10.8) mg/dL Total Bilirubin (0.1-1.5) mg/dL AST (5-40) IU/L ALT (8-54) IU/L Alkaline Phosphatase (40-150) Creatine Kinase (9-236) IU/L CK-MB (CK-2) (0-6.6) ng/ml Troponin I (0.0-0.29) NG/ML B-Natriuretic Peptide 971 H (<100) PG/ML Total Protein (6.0-8.0) g/dL Albumin (3.4-4.8) g/dL Globulin (2.0-3.5) g/dL Albumin/Globulin Ratio (1.3-2.8) Result Diagrams: 09/10/17 13:45 09/10/17 04:41 [place] Results Last 24 hrs: Microbiology 09/09/17 12:52 Influenza Type A Antigen Screen - Final Nasopharyngeal Swab NEGATIVE INFLUENZA A VIRUS AG Influenza Type B Antigen Screen - Final NEGATIVE INFLUENZA B VIRUS AG *Q Meaningful Use (ADM) - VTE *Q VTE Criteria *Q: - Stroke *Q Stroke Criteria *Q: - AMI *Q AMI Criteria *Q: Problem List Initiated/Reviewed/Updated: Yes Orders Last 24hrs: Active Orders 24 hr Category Date Time Status Admission Status [Patient Status] [ADT] Stat ADT 09/09/17 14:05 Active EKG Documentation Completion [RC] STAT Care 09/09/17 12:40 Active RT Aerosol Therapy [RC] ASDIRECTED Care 09/09/17 12:40 Active Echo 2D wo Cont [US] Stat Exams 09/09/17 15:20 Ordered CULTURE BLOOD [BC] Stat Lab 09/09/17 15:17 Ordered CULTURE BLOOD [BC] Stat Lab 09/09/17 15:17 Ordered CULTURE URINE [RM] Routine Lab 09/09/17 15:17 Uncollected UA W/MICROSCOPIC [URIN] Stat Lab 09/09/17 12:39 Uncollected Diltiazem [Cardizem CD] Med 09/10/17 09:00 Ordered 120 mg PO DAILY Furosemide [Lasix] Med 09/09/17 19:00 Once 40 mg IVPUSH NOW ONE Levofloxacin/Dextrose 5%-Water [Levaquin in D5W 750 MG/ Med 09/09/17 15:30 Ordered 150 ML] 750 mg Premix Bag 1 bag IV Q24H Losartan/Hydrochlorothiazide [Losartan-HCTZ 100-25 MG] Med 09/10/17 09:00 Ordered 1 tab PO DAILY Potassium Chloride [Klor-Con 10] Med 09/09/17 21:00 Ordered 40 meq PO BID Blood Culture x2 Reflex Set [OM.PC] Stat Oth 09/09/17 15:17 Ordered Medication Orders Diltiazem HCl (Cardizem Cd) 120 mg PO DAILY BONI Furosemide (Lasix) 40 mg IVPUSH NOW ONE Stop: 09/09/17 19:01 Levofloxacin/Dextrose 750 mg/ (Premix) 150 mls @ 100 mls/hr IV Q24H BONI Non-Formulary Medication (Losartan/Hydrochlorothiazide [Losartan-Hctz 100-25 Mg] ) 1 tab PO DAILY BONI Potassium Chloride (Klor-Con 10) 40 meq PO BID BONI Assessment/Plan Comment:: 77 yo female presenting with signs and symptoms of gastroenteritis with possible pneumonia and CHF. Hypoxia: patient has received lasix, will obtain echocardiogram and monitor on telemetry with supplemental oxygen via [place] Pneumonia: Will give levaquin, cultures pending Supratheraputic INR: will hold coumadin A.fib/HTN: continue diltiazem
[2017-09-09] MEDS ORDERED: Levofloxacin/Dextrose 5%-Water 750 MG in Premix Bag 1 BAG IV SCH (15:30)
[2017-09-09] MEDS ORDERED: Acetaminophen 325 MG Tab PO PRN (15:30)
[2017-09-09] MEDS ORDERED: Albuterol/Ipratropium 3.0-0.5 MG/3 ML Neb Soln NEB PRN (15:30)
[2017-09-09] MEDS ORDERED: Ondansetron 4 MG/2 ML SDV IVPUSH PRN (15:30)
[2017-09-09] MEDS: Levofloxacin/Dextrose 5%-Water 750 MG in Premix Bag 1 BAG IV SCH (16:50)
[2017-09-09] MEDS: Potassium Chloride 10 MEQ Tab.ER PO SCH (20:20)
[2017-09-10] MEDS: Diltiazem 120 MG Cap.CD PO SCH (09:35)
[2017-09-10] MEDS: Potassium Chloride 10 MEQ Tab.ER PO SCH ×2 (09:35→20:15)
[2017-09-10] MEDS: Hydrochlorothiazide/Losartan 12.5-50 mg Tab PO SCH (09:37)
--- NOTE | 2017-09-10 13:40 | PCM.PN ---
- General Info Date of Service: 09/10/17 Subjective Update: Denies shortness of breath, chest pain. Was seen at the bedside saturating well without the use of oxygen supplementation. Patient is concerned about her supratherapeutic INR as she does have a recent history of being hospitalized for this reason along with a GI bleed. Currently however, she denies having any symptoms such as chest pain, palpitations, shortness of breath, leg pain. - Review of Systems General: Reports: Other (See history of present illness) - Patient Data Vitals - Most Recent: Last Vital Signs Temp 37.1 C 09/10/17 12:00 Pulse 107 H 09/10/17 12:00 Resp 18 09/10/17 12:00 BP 152/70 H 09/10/17 12:00 Pulse Ox 94 L 09/10/17 12:00 Weight - Most Recent: 70.307 kg I&O - Last 24 Hours: Intake & Output 09/09/17 09/10/17 09/10/17 22:59 06:59 14:59 Intake Total 320 Output Total 1000 Balance -680 Lab Results Last 24 Hours: Laboratory Results - last 24 hr 09/09/17 09/10/17 09/10/17 Range/Units 15:20 04:41 04:41 WBC 6.71 (4.0-11.0) K/uL RBC 2.99 L (4.30-5.90) M/uL Hgb 8.1 L (12.0-16.0) g/dL Hct 26.4 L (36.0-46.0) % MCV 88.3 (80.0-98.0) fL MCH 27.1 (27.0-32.0) pg MCHC 30.7 L (31.0-37.0) g/dL RDW Std Deviation 47.5 (28.0-62.0) fl RDW Coeff of Hannah 15 (11.0-15.0) % Plt Count 254 (150-400) K/uL MPV 11.10 (7.40-12.00) fL Neut % (Auto) 89.9 H (48.0-80.0) % Lymph % (Auto) 8.9 L (16.0-40.0) % [place] % (Auto) 1.2 (0.0-15.0) % Eos % (Auto) 0.0 (0.0-7.0) % Baso % (Auto) 0.0 (0.0-1.5) % Neut # (Auto) 6.0 H (1.4-5.7) K/uL Lymph # (Auto) 0.6 (0.6-2.4) K/uL [place] # (Auto) 0.1 (0.0-0.8) K/uL Eos # (Auto) 0.0 (0.0-0.7) K/uL Baso # (Auto) 0.0 (0.0-0.1) K/uL Nucleated RBC % 0.0 /100WBC Nucleated RBCs # 0 K/uL INR Sodium 141 (136-146) mmol/L Potassium 4.8 (3.5-5.1) mmol/L Chloride 108 (98-110) mmol/L Carbon Dioxide 24 (21-31) mmol/L BUN 34 H (6.0-23.0) mg/dL Creatinine 1.2 (0.6-1.5) mg/dL Est Cr Clr Drug Dosing 31.45 mL/min Estimated GFR (MDRD) 43.3 ml/min Glucose 139 H (60-110) mg/dL Calcium 8.6 L (8.8-10.8) mg/dL Total Bilirubin 2.1 H (0.1-1.5) mg/dL AST 13 (5-40) IU/L ALT 24 (8-54) IU/L Alkaline Phosphatase 76 (40-150) Total Protein 6.0 (6.0-8.0) g/dL Albumin 3.4 (3.4-4.8) g/dL Globulin 2.6 (2.0-3.5) g/dL Albumin/Globulin Ratio 1.3 (1.3-2.8) Urine Color YELLOW Urine Appearance SLT CLOUDY Urine pH 6.0 (5.0-8.0) Ur Specific [place] 1.010 (1.001-1.035) Urine Protein NEGATIVE (NEGATIVE) mg/dL Urine Glucose (UA) NEGATIVE (NEGATIVE) mg/dL Urine Ketones NEGATIVE (NEGATIVE) mg/dL Urine Occult Blood MODERATE (NEGATIVE) Urine Nitrite NEGATIVE (NEGATIVE) Urine Bilirubin NEGATIVE (NEGATIVE) Urine Urobilinogen 0.2 (<2.0) EU/dL Ur Leukocyte Esterase NEGATIVE (NEGATIVE) Urine RBC 5-7 (0-2/HPF) Urine WBC 0-2 (0-5/HPF) Ur Epithelial Cells MODERATE (NONE-FEW) Urine Bacteria RARE (NEGATIVE) 09/10/17 09/10/17 Range/Units 12:01 12:01 WBC (4.0-11.0) K/uL RBC (4.30-5.90) M/uL Hgb 8.5 L (12.0-16.0) g/dL Hct 27.9 L (36.0-46.0) % MCV (80.0-98.0) fL MCH (27.0-32.0) pg MCHC (31.0-37.0) g/dL RDW Std Deviation (28.0-62.0) fl RDW Coeff of Hannah (11.0-15.0) % Plt Count (150-400) K/uL MPV (7.40-12.00) fL Neut % (Auto) (48.0-80.0) % Lymph % (Auto) (16.0-40.0) % [place] % (Auto) (0.0-15.0) % Eos % (Auto) (0.0-7.0) % Baso % (Auto) (0.0-1.5) % Neut # (Auto) (1.4-5.7) K/uL Lymph # (Auto) (0.6-2.4) K/uL [place] # (Auto) (0.0-0.8) K/uL Eos # (Auto) (0.0-0.7) K/uL Baso # (Auto) (0.0-0.1) K/uL Nucleated RBC % /100WBC Nucleated RBCs # K/uL INR 8.27 H* Sodium (136-146) mmol/L Potassium (3.5-5.1) mmol/L Chloride (98-110) mmol/L Carbon Dioxide (21-31) mmol/L BUN (6.0-23.0) mg/dL Creatinine (0.6-1.5) mg/dL Est Cr Clr Drug Dosing mL/min Estimated GFR (MDRD) ml/min Glucose (60-110) mg/dL Calcium (8.8-10.8) mg/dL Total Bilirubin (0.1-1.5) mg/dL AST (5-40) IU/L ALT (8-54) IU/L Alkaline Phosphatase (40-150) Total Protein (6.0-8.0) g/dL Albumin (3.4-4.8) g/dL Globulin (2.0-3.5) g/dL Albumin/Globulin Ratio (1.3-2.8) Urine Color Urine Appearance Urine pH (5.0-8.0) Ur Specific [place] (1.001-1.035) Urine Protein (NEGATIVE) mg/dL Urine Glucose (UA) (NEGATIVE) mg/dL Urine Ketones (NEGATIVE) mg/dL Urine Occult Blood (NEGATIVE) Urine Nitrite (NEGATIVE) Urine Bilirubin (NEGATIVE) Urine Urobilinogen (<2.0) EU/dL Ur Leukocyte Esterase (NEGATIVE) Urine RBC (0-2/HPF) Urine WBC (0-5/HPF) Ur Epithelial Cells (NONE-FEW) Urine Bacteria (NEGATIVE) Med Orders - Current: Current Medications Acetaminophen (Tylenol) 650 mg PO Q4H PRN PRN Reason: pain Albuterol/Ipratropium (Duoneb 3.0-0.5 Mg/3 Ml) 3 ml NEB Q4HRRT PRN PRN Reason: Shortness Of Breath/wheezing Diltiazem HCl (Cardizem Cd) 120 mg PO DAILY [facility] Last Admin: 09/10/17 09:35 Dose: 120 mg HCTZ/Losartan Potassium (Hyzaar 50-12.5 Mg) 2 tab PO DAILY [facility] Last Admin: 09/10/17 09:37 Dose: 2 tab Levofloxacin/Dextrose 750 mg/ (Premix) 150 mls @ 100 mls/hr IV Q48H [facility] Last Admin: 09/09/17 16:50 Dose: 100 mls/hr Ondansetron HCl (Zofran) 4 mg IVPUSH Q4H PRN PRN Reason: Nausea Potassium Chloride (Klor-Con 10) 40 meq PO BID [facility] Last Admin: 09/10/17 09:35 Dose: 40 meq Discontinued Medications Albuterol/Ipratropium (Duoneb 3.0-0.5 Mg/3 Ml) 3 ml NEB ONETIME ONE Stop: 09/09/17 12:40 Last Admin: 09/09/17 13:00 Dose: 3 ml Furosemide (Lasix) 20 mg IVPUSH NOW ONE Stop: 09/09/17 14:03 Last Admin: 09/09/17 14:09 Dose: 20 mg Furosemide (Lasix) 40 mg IVPUSH NOW ONE Stop: 09/09/17 19:01 Sodium Chloride (Normal Saline) 1,000 mls @ 125 mls/hr IV STAT [facility] Last Admin: 09/09/17 14:10 Dose: 125 mls/hr Levofloxacin/Dextrose 750 mg/ (Premix) 150 mls @ 100 mls/hr IV Q24H [facility] Lorazepam (Ativan) 0.5 mg IVPUSH ONETIME ONE Stop: 09/09/17 12:45 Last Admin: 09/09/17 13:01 Dose: 0.5 mg Methylprednisolone Sodium Succinate (Solu-Medrol) 125 mg IVPUSH ONETIME ONE Stop: 09/09/17 12:40 Last Admin: 09/09/17 13:01 Dose: 125 mg Ondansetron HCl (Zofran) 8 mg IVPUSH ONETIME ONE Stop: 09/09/17 12:41 Last Admin: 09/09/17 13:00 Dose: 8 mg Pantoprazole Sodium (Protonix Iv) 80 mg IVPUSH .BOLUS ONE Stop: 09/09/17 13:44 Last Admin: 09/09/17 17:39 Dose: Not Given Phytonadione (Aquamephyton) 2.5 mg PO ONETIME STA Stop: 09/10/17 13:30 - Exam General: Alert, Oriented Lungs: Clear to Auscultation, Normal Respiratory Effort Cardiovascular: Regular Rate, Regular Rhythm GI/Abdominal Exam: Normal Bowel Sounds, Soft Back Exam: Normal Inspection Extremities: Normal Capillary Refill, Pedal Edema (Trace pedal edema) Psy/Mental Status: Alert, Anxious - Problem List Review Problem List Initiated/Reviewed/Updated: Yes - My Orders Last 24 Hours: My Active Orders 09/10/17 13:30 HEMOGLOBIN/HEMATOCRIT,HH [HEME] Routine 09/10/17 16:00 INR,PT,PROTHROMBIN TIME [COAG] Q4H 09/10/17 20:00 INR,PT,PROTHROMBIN TIME [COAG] Q4H - Plan Plan:: 77 yo female presenting with signs and symptoms of gastroenteritis with possible pneumonia and CHF. Hypoxia: patient has received lasix, will obtain echocardiogram and monitor on telemetry with supplemental oxygen via [place] Pneumonia: Will give levaquin, cultures pending Supratheraputic INR: will hold coumadin A.fib/HTN: continue diltiazem Assessment: #1. Hypoxia secondary to CHF exacerbation and pneumonia #2. Supratherapeutic INR #3. Stable normocytic anemia #4. History of hypertension and atrial fibrillation Plan: #1. Continue IV Levaquin for pneumonia coverage #2. Recheck INR at noon today indicates an INR of 8.27 and a hemoglobin of 8.5. We will give 2.5 mg by mouth vitamin K now. Recheck INR every 4 hours along with hemoglobin/hematocrit. Patient is currently asymptomatic she does not have any dizziness, chest pain or palpitations. We'll have to closely monitor the INR. We made have to explore other options for anticoagulation beyond warfarin given the recurrent supratherapeutic INR despite close management as an outpatient. #3. Follow up on echocardiogram
[2017-09-11] MEDS: Potassium Chloride 10 MEQ Tab.ER PO SCH ×2 (08:55→22:11)
[2017-09-11] MEDS: Diltiazem 120 MG Cap.CD PO SCH (08:56)
[2017-09-11] MEDS: Hydrochlorothiazide/Losartan 12.5-50 mg Tab PO SCH (08:57)
--- NOTE | 2017-09-11 10:07 | CR ---
EXAMINATION: Two-view chest (PA and Lateral views). HISTORY: Cough. FINDINGS: The trachea is midline. The heart is enlarged. The cardiomediastinal silhouette is within normal limi ts. There is infiltrate and/or atelectasis noted within the left lung base with trace bilateral pleur al effusions. Osseous structures appear unremarkable. Stable mild left perihilar scarring. IMPRESSION: 1. Mild left basilar atelectasis and/or infiltrate. 2. Trace pleural effusions. 3. Cardiomegaly.
[2017-09-11] MEDS: Apixaban 5 MG Tab PO SCH ×2 (10:08→22:10)
--- NOTE | 2017-09-11 11:43 | PCM.PN ---
- General Info Date of Service: 09/11/17 Subjective Update: Patient's morning complains of a intermittent cough that started last night. Denies any fevers chills nausea or vomiting. Patient had supratherapeutic INR yesterday and received 2.5 mg of vitamin K. INR appears to be in the therapeutic range at the last check. - Review of Systems General: Reports: Other (See history of present illness) - Patient Data Vitals - Most Recent: Last Vital Signs Temp 36.3 C 09/11/17 08:00 Pulse 83 09/11/17 08:56 Resp 20 09/11/17 08:00 BP 131/89 09/11/17 08:56 Pulse Ox 90 L 09/11/17 08:00 Weight - Most Recent: 70.307 kg I&O - Last 24 Hours: Intake & Output 09/10/17 09/11/17 09/11/17 22:59 06:59 14:59 Intake Total 540 440 Output Total 350 500 Balance 190 -60 Lab Results Last 24 Hours: Laboratory Results - last 24 hr 09/10/17 09/10/17 09/10/17 Range/Units 12:01 12:01 13:45 WBC (4.0-11.0) K/uL RBC (4.30-5.90) M/uL Hgb 8.5 L 8.4 L (12.0-16.0) g/dL Hct 27.9 L 27.6 L (36.0-46.0) % MCV (80.0-98.0) fL MCH (27.0-32.0) pg MCHC (31.0-37.0) g/dL RDW Std Deviation (28.0-62.0) fl RDW Coeff of Hannah (11.0-15.0) % Plt Count (150-400) K/uL MPV (7.40-12.00) fL Neut % (Auto) (48.0-80.0) % Lymph % (Auto) (16.0-40.0) % [place] % (Auto) (0.0-15.0) % Eos % (Auto) (0.0-7.0) % Baso % (Auto) (0.0-1.5) % Neut # (Auto) (1.4-5.7) K/uL Lymph # (Auto) (0.6-2.4) K/uL [place] # (Auto) (0.0-0.8) K/uL Eos # (Auto) (0.0-0.7) K/uL Baso # (Auto) (0.0-0.1) K/uL Nucleated RBC % /100WBC Nucleated RBCs # K/uL INR 8.27 H* Sodium (136-146) mmol/L Potassium (3.5-5.1) mmol/L Chloride (98-110) mmol/L Carbon Dioxide (21-31) mmol/L BUN (6.0-23.0) mg/dL Creatinine (0.6-1.5) mg/dL Est Cr Clr Drug Dosing mL/min Estimated GFR (MDRD) ml/min Glucose (60-110) mg/dL Calcium (8.8-10.8) mg/dL Total Bilirubin (0.1-1.5) mg/dL AST (5-40) IU/L ALT (8-54) IU/L Alkaline Phosphatase (40-150) Total Protein (6.0-8.0) g/dL Albumin (3.4-4.8) g/dL Globulin (2.0-3.5) g/dL Albumin/Globulin Ratio (1.3-2.8) 09/10/17 09/10/17 09/11/17 Range/Units 16:41 20:20 05:37 WBC 14.52 H (4.0-11.0) K/uL RBC 3.02 L (4.30-5.90) M/uL Hgb 8.2 L (12.0-16.0) g/dL Hct 26.9 L (36.0-46.0) % MCV 89.1 (80.0-98.0) fL MCH 27.2 (27.0-32.0) pg MCHC 30.5 L (31.0-37.0) g/dL RDW Std Deviation 48.7 (28.0-62.0) fl RDW Coeff of Hannah 15 (11.0-15.0) % Plt Count 311 (150-400) K/uL MPV 11.10 (7.40-12.00) fL Neut % (Auto) 82.8 H (48.0-80.0) % Lymph % (Auto) 9.4 L (16.0-40.0) % [place] % (Auto) 7.3 (0.0-15.0) % Eos % (Auto) 0.3 (0.0-7.0) % Baso % (Auto) 0.2 (0.0-1.5) % Neut # (Auto) 12.0 H (1.4-5.7) K/uL Lymph # (Auto) 1.4 (0.6-2.4) K/uL [place] # (Auto) 1.1 H (0.0-0.8) K/uL Eos # (Auto) 0.1 (0.0-0.7) K/uL Baso # (Auto) 0.0 (0.0-0.1) K/uL Nucleated RBC % 0.3 /100WBC Nucleated RBCs # 0 K/uL INR 8.88 H* 7.09 H* Sodium (136-146) mmol/L Potassium (3.5-5.1) mmol/L Chloride (98-110) mmol/L Carbon Dioxide (21-31) mmol/L BUN (6.0-23.0) mg/dL Creatinine (0.6-1.5) mg/dL Est Cr Clr Drug Dosing mL/min Estimated GFR (MDRD) ml/min Glucose (60-110) mg/dL Calcium (8.8-10.8) mg/dL Total Bilirubin (0.1-1.5) mg/dL AST (5-40) IU/L ALT (8-54) IU/L Alkaline Phosphatase (40-150) Total Protein (6.0-8.0) g/dL Albumin (3.4-4.8) g/dL Globulin (2.0-3.5) g/dL Albumin/Globulin Ratio (1.3-2.8) 09/11/17 09/11/17 Range/Units 05:37 05:37 WBC (4.0-11.0) K/uL RBC (4.30-5.90) M/uL Hgb (12.0-16.0) g/dL Hct (36.0-46.0) % MCV (80.0-98.0) fL MCH (27.0-32.0) pg MCHC (31.0-37.0) g/dL RDW Std Deviation (28.0-62.0) fl RDW Coeff of Hannah (11.0-15.0) % Plt Count (150-400) K/uL MPV (7.40-12.00) fL Neut % (Auto) (48.0-80.0) % Lymph % (Auto) (16.0-40.0) % [place] % (Auto) (0.0-15.0) % Eos % (Auto) (0.0-7.0) % Baso % (Auto) (0.0-1.5) % Neut # (Auto) (1.4-5.7) K/uL Lymph # (Auto) (0.6-2.4) K/uL [place] # (Auto) (0.0-0.8) K/uL Eos # (Auto) (0.0-0.7) K/uL Baso # (Auto) (0.0-0.1) K/uL Nucleated RBC % /100WBC Nucleated RBCs # K/uL INR 2.93 Sodium 141 (136-146) mmol/L Potassium 4.8 (3.5-5.1) mmol/L Chloride 110 (98-110) mmol/L Carbon Dioxide 23 (21-31) mmol/L BUN 56 H (6.0-23.0) mg/dL Creatinine 1.4 (0.6-1.5) mg/dL Est Cr Clr Drug Dosing 26.95 mL/min Estimated GFR (MDRD) 36.3 ml/min Glucose 105 (60-110) mg/dL Calcium 8.9 (8.8-10.8) mg/dL Total Bilirubin 1.6 H (0.1-1.5) mg/dL AST 21 (5-40) IU/L ALT 36 (8-54) IU/L Alkaline Phosphatase 75 (40-150) Total Protein 6.4 (6.0-8.0) g/dL Albumin 3.3 L (3.4-4.8) g/dL Globulin 3.1 (2.0-3.5) g/dL Albumin/Globulin Ratio 1.1 L (1.3-2.8) [place] Results Last 24 Hours: Microbiology 09/11/17 10:05 Stool Occult Blood ([place]) - Final Stool / Feces - Stool, Formed NEGATIVE OCCULT BLOOD 09/09/17 15:20 Urine Culture - Final Urine, Clean Catch MIXED JUSTIN >100,000 CFU/ML 09/09/17 15:58 Aerobic Blood Culture - Preliminary Blood - Venous - Lab Draw NO GROWTH AFTER 1 DAY Anaerobic Blood Culture - Preliminary NO GROWTH AFTER 1 DAY 09/09/17 15:58 Aerobic Blood Culture - Preliminary Blood - Venous NO GROWTH AFTER 1 DAY Anaerobic Blood Culture - Preliminary NO GROWTH AFTER 1 DAY Med Orders - Current: Current Medications Acetaminophen (Tylenol) 650 mg PO Q4H PRN PRN Reason: pain Albuterol/Ipratropium (Duoneb 3.0-0.5 Mg/3 Ml) 3 ml NEB Q4HRRT PRN PRN Reason: Shortness Of Breath/wheezing Apixaban (Eliquis) 5 mg PO BID [facility] Last Admin: 09/11/17 10:08 Dose: 5 mg Diltiazem HCl (Cardizem Cd) 120 mg PO DAILY [facility] Last Admin: 09/11/17 08:56 Dose: 120 mg HCTZ/Losartan Potassium (Hyzaar 50-12.5 Mg) 2 tab PO DAILY [facility] Last Admin: 09/11/17 08:57 Dose: 2 tab Levofloxacin/Dextrose 750 mg/ (Premix) 150 mls @ 100 mls/hr IV Q48H [facility] Last Admin: 09/09/17 16:50 Dose: 100 mls/hr Piperacillin Sod/Tazobactam (Sod 4.5 gm/ Sodium Chloride) 100 mls @ 100 mls/hr IV Q6H [facility] Ondansetron HCl (Zofran) 4 mg IVPUSH Q4H PRN PRN Reason: Nausea Potassium Chloride (Klor-Con 10) 40 meq PO BID [facility] Last Admin: 09/11/17 08:55 Dose: 40 meq Vancomycin HCl (Pharmacy To Dose - Vancomycin) 1 dose .XX ASDIRECTED [facility] Discontinued Medications Albuterol/Ipratropium (Duoneb 3.0-0.5 Mg/3 Ml) 3 ml NEB ONETIME ONE Stop: 09/09/17 12:40 Last Admin: 09/09/17 13:00 Dose: 3 ml Furosemide (Lasix) 20 mg IVPUSH NOW ONE Stop: 09/09/17 14:03 Last Admin: 09/09/17 14:09 Dose: 20 mg Furosemide (Lasix) 40 mg IVPUSH NOW ONE Stop: 09/09/17 19:01 Sodium Chloride (Normal Saline) 1,000 mls @ 125 mls/hr IV STAT [facility] Last Admin: 09/09/17 14:10 Dose: 125 mls/hr Levofloxacin/Dextrose 750 mg/ (Premix) 150 mls @ 100 mls/hr IV Q24H [facility] Lorazepam (Ativan) 0.5 mg IVPUSH ONETIME ONE Stop: 09/09/17 12:45 Last Admin: 09/09/17 13:01 Dose: 0.5 mg Methylprednisolone Sodium Succinate (Solu-Medrol) 125 mg IVPUSH ONETIME ONE Stop: 09/09/17 12:40 Last Admin: 09/09/17 13:01 Dose: 125 mg Ondansetron HCl (Zofran) 8 mg IVPUSH ONETIME ONE Stop: 09/09/17 12:41 Last Admin: 09/09/17 13:00 Dose: 8 mg Pantoprazole Sodium (Protonix Iv) 80 mg IVPUSH .BOLUS ONE Stop: 09/09/17 13:44 Last Admin: 09/09/17 17:39 Dose: Not Given Phytonadione (Aquamephyton) 2.5 mg PO ONETIME STA Stop: 09/10/17 13:30 Last Admin: 09/10/17 13:53 Dose: 2.5 mg - Exam General: Alert, Oriented, Cooperative HEENT: Pupils Equal, Pupils Reactive Neck: Supple Lungs: Normal Respiratory Effort, Crackles (Expiratory Crackles bilaterally) Cardiovascular: Irregular Rhythm Extremities: No Pedal Edema, Normal Capillary Refill Peripheral Pulses: 3+: Popliteal (R), Posterior Tibial (L) Skin: Warm - Problem List Review Problem List Initiated/Reviewed/Updated: Yes - My Orders Last 24 Hours: My Active Orders 09/11/17 09:15 Apixaban [Eliquis] 5 mg PO BID 09/11/17 11:45 Furosemide [Lasix] 40 mg IVPUSH DAILY Piperacillin/Tazobactam [Piperacil-Tazobact] 4.5 gm Sodium Chloride 0.9% [ Normal Saline] 100 ml IV Q6H Vancomycin Pharmacy to Dose [Pharmacy to Dose - Vancomycin] 1 dose .XX ASDIRECTED - Plan Plan:: 77 yo female presenting with signs and symptoms of gastroenteritis with possible pneumonia and CHF. Hypoxia: patient has received lasix, will obtain echocardiogram and monitor on telemetry with supplemental oxygen via [place] Pneumonia: Will give levaquin, cultures pending Supratheraputic INR: will hold coumadin A.fib/HTN: continue diltiazem Assessment: #1. CHF exacerbation secondary to pneumonia with newfound leukocytosis #2. Bilateral pleural effusion #3. Therapeutic INR #4. History of atrial fibrillation, hypertension Plan: #1. Discontinue the Coumadin. We'll start the patient on Eliquis today which we will try to have her go home on given that this patient has a history now of supratherapeutic INR along with a previous hospitalization with a GI bleed #2. Start IV Zosyn and vancomycin for suspected pneumonia given the chest x-ray and the newfound leukocytosis. #3. IV 40 mg Lasix daily for the bilateral pleural effusions with clinical findings suggestive of congestive heart failure. We'll follow up on echocardiogram results once available.
[2017-09-11] MEDS ORDERED: Furosemide 40 MG/4 ML VIAL IVPUSH SCH (11:45)
[2017-09-11] MEDS ORDERED: Furosemide 40 MG Tab PO ONE (11:45)
[2017-09-11] MEDS: Piperacillin/Tazobactam 3.375 GM in Sodium Chloride 0.9% 50 ML IV SCH ×3 (12:58→23:31)
[2017-09-11] MEDS ORDERED: Docusate Sodium 100 MG Cap PO PRN (14:30)
[2017-09-11] MEDS: Levofloxacin/Dextrose 5%-Water 750 MG in Premix Bag 1 BAG IV SCH (15:22)
[2017-09-11] MEDS: Pantoprazole 40 MG Tab.CR PO SCH (15:22)
[2017-09-12] MEDS: Piperacillin/Tazobactam 3.375 GM in Sodium Chloride 0.9% 50 ML IV SCH ×2 (05:20→11:06)
[2017-09-12] MEDS: Pantoprazole 40 MG Tab.CR PO SCH (06:32)
[2017-09-12] MEDS: Potassium Chloride 10 MEQ Tab.ER PO SCH (08:14)
[2017-09-12] MEDS: Hydrochlorothiazide/Losartan 12.5-50 mg Tab PO SCH (08:14)
[2017-09-12] MEDS: Diltiazem 120 MG Cap.CD PO SCH (08:15)
[2017-09-12] MEDS: Apixaban 5 MG Tab PO SCH (08:16)
[2017-09-12] MEDS ORDERED: Pantoprazole 40 MG Vial IVPUSH SCH (10:30)
--- NOTE | 2017-09-12 13:18 | ECHO ---
EXAM DATE: 09/09/17 PATIENT'S AGE: 77 The echocardiogram report can be seen in this patient's EMR (Electronic Medical Record) in the Reports section. The report has also been scanned into PACs. SOTERO
--- NOTE | 2017-09-12 15:34 | PCM.DCSUM1 ---
Discharge Summary - Hospital Course Free Text/Narrative:: Admission date: September 09, 2017 discharge date: September 12, 2017 Admission diagnosis: #1. Pneumonia #2. Gastroenteritis #3. Nausea and vomiting secondary to #2 #4. Supratherapeutic INR #5. History of atrial fibrillation Discharge diagnosis: #1. Pneumonia #2. Gastroenteritis, supratherapeutic INR #3. Stable normocytic anemia Hospital course: 77-year-old female with the above-mentioned history the presented to the emergency department on 09 September complaining of nausea and vomiting. She is found to have a possible pneumonia so she was admitted for observation and IV antibiotics. Patient was placed on IV Levaquin. She also happened to have a supratherapeutic INR which was as high as 8.5. She received 2.5 mg of vitamin K for this reason. Recheck afterwards revealed a subtherapeutic INR. Given the patient's history of a GI bleed secondary to supratherapeutic INR, she failed warfarin therapy and so she was switched to request. Prescription for Winifred Kim sent home with her. Patient also happened to have a downtrending anemia with a hemoglobin as low as 7.9 but recheck indicated a hemoglobin of 8.3. Patient had no signs of dizziness, palpitations, diarrhea. Fecal occult test was negative. She is advised to get a recheck hemoglobin upon discharge at her follow-up visit with her primary care provider. She'll be also sent home on by mouth Levaquin for treatment of her pneumonia. She is advised to return if she expresses any shortness of breath, diarrhea, blood in her stool. - Discharge Data Discharge Date: 09/12/17 Discharge Disposition: Home, Self-Care 01 Condition: Fair - Patient Instructions Diet: Usual Diet as Tolerated Activity: As Tolerated Notify Provider of: Fever, Increased Pain Other/Special Instructions: bloody stool, blood in vomit/spit - Discharge Plan Prescriptions/Med Rec: Apixaban [Eliquis] 5 mg PO BID 30 Days #60 tablet Levofloxacin [Levaquin] 750 mg PO DAILY 4 Days #4 tab Home Medications: Home Meds Aspirin [Lo-Dose Aspirin EC] 81 mg PO DAILY 07/20/17 [History] Diltiazem [Cardizem CD] 120 mg PO DAILY 07/20/17 [History] Docusate Sodium 250 mg PO ASDIRECTED 07/20/17 [History] Losartan/Hydrochlorothiazide [Losartan-HCTZ 100-25 MG] 1 tab PO DAILY 07/20/17 [ History] Potassium Chloride [Klor-Con 10] 40 meq PO BID 09/09/17 [History] Apixaban [Eliquis] 5 mg PO BID 30 Days #60 tablet 09/12/17 [Rx] Levofloxacin [Levaquin] 750 mg PO DAILY 4 Days #4 tab 09/12/17 [Rx] Patient Handouts: Low-Sodium Eating Plan, Heart Failure, [id number], Apixaban oral tablets, Form - Daily Weight Record Referrals: Charly Nicole MD [Physician] - 09/26/17 10:00 am - Patient Data Vitals - Most Recent: Last Vital Signs Temp 36.4 C 09/12/17 12:00 Pulse 80 09/12/17 12:00 Resp 18 09/12/17 12:00 BP 135/76 09/12/17 12:00 Pulse Ox 97 09/12/17 12:00 Weight - Most Recent: 76 kg I&O - Last 24 hours: Intake & Output 09/12/17 09/12/17 09/12/17 06:59 14:59 22:59 Intake Total 470 Output Total 1600 Balance -1130 Lab Results - Last 24 hrs: Laboratory Results - last 24 hr 09/12/17 09/12/17 09/12/17 Range/Units 05:56 05:56 05:56 WBC 11.17 H (4.0-11.0) K/uL RBC 2.94 L (4.30-5.90) M/uL Hgb 7.9 L (12.0-16.0) g/dL Hct 25.8 L (36.0-46.0) % MCV 87.8 (80.0-98.0) fL MCH 26.9 L (27.0-32.0) pg MCHC 30.6 L (31.0-37.0) g/dL RDW Std Deviation 48.6 (28.0-62.0) fl RDW Coeff of Hannah 15 (11.0-15.0) % Plt Count 302 (150-400) K/uL MPV 10.60 (7.40-12.00) fL Neut % (Auto) 70.5 (48.0-80.0) % Lymph % (Auto) 15.8 L (16.0-40.0) % [place] % (Auto) 9.0 (0.0-15.0) % Eos % (Auto) 4.3 (0.0-7.0) % Baso % (Auto) 0.4 (0.0-1.5) % Neut # (Auto) 7.9 H (1.4-5.7) K/uL Lymph # (Auto) 1.8 (0.6-2.4) K/uL [place] # (Auto) 1.0 H (0.0-0.8) K/uL Eos # (Auto) 0.5 (0.0-0.7) K/uL Baso # (Auto) 0.1 (0.0-0.1) K/uL Nucleated RBC % 0.0 /100WBC Nucleated RBCs # 0 K/uL INR 1.81 Sodium 142 (136-146) mmol/L Potassium 4.1 (3.5-5.1) mmol/L Chloride 108 (98-110) mmol/L Carbon Dioxide 24 (21-31) mmol/L BUN 49 H (6.0-23.0) mg/dL Creatinine 1.3 (0.6-1.5) mg/dL Est Cr Clr Drug Dosing 29.03 mL/min Estimated GFR (MDRD) 39.5 ml/min Glucose 81 (60-110) mg/dL Calcium 8.6 L (8.8-10.8) mg/dL 09/12/17 09/12/17 Range/Units 11:35 11:35 WBC (4.0-11.0) K/uL RBC (4.30-5.90) M/uL Hgb 8.3 L (12.0-16.0) g/dL Hct 26.8 L (36.0-46.0) % MCV (80.0-98.0) fL MCH (27.0-32.0) pg MCHC (31.0-37.0) g/dL RDW Std Deviation (28.0-62.0) fl RDW Coeff of Hannah (11.0-15.0) % Plt Count (150-400) K/uL MPV (7.40-12.00) fL Neut % (Auto) (48.0-80.0) % Lymph % (Auto) (16.0-40.0) % [place] % (Auto) (0.0-15.0) % Eos % (Auto) (0.0-7.0) % Baso % (Auto) (0.0-1.5) % Neut # (Auto) (1.4-5.7) K/uL Lymph # (Auto) (0.6-2.4) K/uL [place] # (Auto) (0.0-0.8) K/uL Eos # (Auto) (0.0-0.7) K/uL Baso # (Auto) (0.0-0.1) K/uL Nucleated RBC % /100WBC Nucleated RBCs # K/uL INR 1.67 Sodium (136-146) mmol/L Potassium (3.5-5.1) mmol/L Chloride (98-110) mmol/L Carbon Dioxide (21-31) mmol/L BUN (6.0-23.0) mg/dL Creatinine (0.6-1.5) mg/dL Est Cr Clr Drug Dosing mL/min Estimated GFR (MDRD) ml/min Glucose (60-110) mg/dL Calcium (8.8-10.8) mg/dL ZAIN Results - Last 24 hrs: Microbiology 09/09/17 15:58 Aerobic Blood Culture - Preliminary Blood - Venous - Lab Draw NO GROWTH AFTER 2 DAYS Anaerobic Blood Culture - Preliminary NO GROWTH AFTER 2 DAYS 09/09/17 15:58 Aerobic Blood Culture - Preliminary Blood - Venous NO GROWTH AFTER 2 DAYS Anaerobic Blood Culture - Preliminary NO GROWTH AFTER 2 DAYS 09/11/17 10:05 Stool Occult Blood (ZAIN) - Final Stool / Feces - Stool, Formed NEGATIVE OCCULT BLOOD Med Orders - Current: Current Medications Acetaminophen (Tylenol) 650 mg PO Q4H PRN PRN Reason: pain Albuterol/Ipratropium (Duoneb 3.0-0.5 Mg/3 Ml) 3 ml NEB Q4HRRT PRN PRN Reason: Shortness Of Breath/wheezing Apixaban (Eliquis) 5 mg PO BID [facility] Last Admin: 09/12/17 08:16 Dose: 5 mg Diltiazem HCl (Cardizem Cd) 120 mg PO DAILY [facility] Last Admin: 09/12/17 08:15 Dose: 120 mg Docusate Sodium (Colace) 100 mg PO DAILY PRN PRN Reason: Constipation Last Admin: 09/11/17 15:22 Dose: 100 mg HCTZ/Losartan Potassium (Hyzaar 50-12.5 Mg) 2 tab PO DAILY [facility] Last Admin: 09/12/17 08:14 Dose: 2 tab Levofloxacin/Dextrose 750 mg/ (Premix) 150 mls @ 100 mls/hr IV Q48H [facility] Last Admin: 09/11/17 15:22 Dose: 100 mls/hr Piperacillin Sod/Tazobactam (Sod 3.375 gm/ Sodium Chloride) 50 mls @ 100 mls/ hr IV Q6H [facility] Last Admin: 09/12/17 11:06 Dose: 100 mls/hr Vancomycin HCl 1 gm/ Sodium (Chloride) 250 mls @ 250 mls/hr IV Q24H [facility] Last Admin: 09/12/17 12:29 Dose: 250 mls/hr Ondansetron HCl (Zofran) 4 mg IVPUSH Q4H PRN PRN Reason: Nausea Pantoprazole Sodium (Protonix) 40 mg PO ACBREAKFAST [facility] Last Admin: 09/12/17 06:32 Dose: 40 mg Pantoprazole Sodium (Protonix Iv) 40 mg IVPUSH Q12H [facility] Last Admin: 09/12/17 10:57 Dose: 40 mg Potassium Chloride (Klor-Con 10) 40 meq PO BID [facility] Last Admin: 09/12/17 08:14 Dose: 40 meq Vancomycin HCl (Pharmacy To Dose - Vancomycin) 1 dose .XX ASDIRECTED [facility] Discontinued Medications Albuterol/Ipratropium (Duoneb 3.0-0.5 Mg/3 Ml) 3 ml NEB ONETIME ONE Stop: 09/09/17 12:40 Last Admin: 09/09/17 13:00 Dose: 3 ml Furosemide (Lasix) 20 mg IVPUSH NOW ONE Stop: 09/09/17 14:03 Last Admin: 09/09/17 14:09 Dose: 20 mg Furosemide (Lasix) 40 mg IVPUSH NOW ONE Stop: 09/09/17 19:01 Furosemide (Lasix) 40 mg IVPUSH DAILY [facility] Furosemide (Lasix) 40 mg PO ONETIME ONE Stop: 09/11/17 11:46 Last Admin: 09/11/17 12:57 Dose: 40 mg Sodium Chloride (Normal Saline) 1,000 mls @ 125 mls/hr IV STAT [facility] Last Admin: 09/09/17 14:10 Dose: 125 mls/hr Levofloxacin/Dextrose 750 mg/ (Premix) 150 mls @ 100 mls/hr IV Q24H [facility] Lorazepam (Ativan) 0.5 mg IVPUSH ONETIME ONE Stop: 09/09/17 12:45 Last Admin: 09/09/17 13:01 Dose: 0.5 mg Methylprednisolone Sodium Succinate (Solu-Medrol) 125 mg IVPUSH ONETIME ONE Stop: 09/09/17 12:40 Last Admin: 09/09/17 13:01 Dose: 125 mg Ondansetron HCl (Zofran) 8 mg IVPUSH ONETIME ONE Stop: 09/09/17 12:41 Last Admin: 09/09/17 13:00 Dose: 8 mg Pantoprazole Sodium (Protonix Iv) 80 mg IVPUSH .BOLUS ONE Stop: 09/09/17 13:44 Last Admin: 09/09/17 17:39 Dose: Not Given Phytonadione (Aquamephyton) 2.5 mg PO ONETIME STA Stop: 09/10/17 13:30 Last Admin: 09/10/17 13:53 Dose: 2.5 mg *Q Meaningful Use (DIS) - VTE *Q VTE Criteria *Q: - Stroke *Q Stroke Criteria *Q: - AMI *Q AMI Criteria *Q:
== END 2017-09-12 15:15 | disposition home or self-care (01) | DRG 194 ==
LOC: MW.ED 12:24 → MW.MS 14:05
PROVIDERS: ADMIT Internal Medicine; ATTEND Internal Medicine
DX: J18.9 Pneumonia, unspecified organism (principal); J90 Pleural effusion, not elsewhere classified; K52.9 Noninfective gastroenteritis and colitis, unspecified; D64.9 Anemia, unspecified; R79.1 Abnormal coagulation profile; I50.9 Heart failure, unspecified; I48.91 Unspecified atrial fibrillation; D72.829 Elevated white blood cell count, unspecified; I10 Essential (primary) hypertension; K21.9 Gastro-esophageal reflux disease without esophagitis; F03.90 Unspecified dementia, unspecified severity, without behavioral disturbance, psychotic disturbance, mood disturbance, and anxiety; Z79.899 Other long term (current) drug therapy; Z79.01 Long term (current) use of anticoagulants
CPT/HCPCS: 36415; 71045; 80053; 82550; 82553; 83880; 84484; 85025; 85610; 87804 ×2; 93005 ×2; 94640; 96361; 96374; 96375; 99285; J2060; J2405; J2930; 71046; 71046-26; 80048; 81001; 82272; 85014; 85018; 87040; 87086; 93306; A9270-GY; C9113; J1940; J1956; J2543; J3370; J3430; J7040; J7050

== ENCOUNTER 2017-10-08 17:13 | Inpatient (IN) | payer MEDICARE, BC ==
[2017-10-08] MEDS ORDERED: Furosemide 40 MG/4 ML VIAL IVPUSH ONE (17:36)
[2017-10-08] MEDS ORDERED: Ondansetron 4 MG/2 ML SDV IVPUSH PRN (19:50)
[2017-10-08] MEDS ORDERED: Acetaminophen 325 MG Tab PO PRN (19:50)
--- NOTE | 2017-10-08 20:00 | PCM.HP ---
H&P History of Present Illness - General Admit Problem/Dx: Admission Diagnosis/Problem Admission Diagnosis/Problem CHF, Congestive heart failure - History of Present Illness Initial Comments - Free Text/Narative: 77 yo female with pmh of CHF with EF of 35-40%, atrial fibrillation and hypertension who presents to Dr. Kim's clinic with shortness of breath. She had a recent hospitalization for pneumonia. During that hospitalization she was switched to Eliquis due to history of supratheraputic INR and GI bleed. She has since had two blood transfusions but denies any blood in her stool. She reports shortness of breath with walking. She reports orthopnea and increase of lower extremity edema. She denies any fevers or cough. She reports abdominal pain. Last stool was this morning. She denies any nausea nad vomiting. - Related Data Allergies/Adverse Reactions: Allergies Allergy/AdvReac Type Severity Reaction Status Date / Time No Known Allergies Allergy Verified 07/20/17 14:41 Home Medications: Home Meds Aspirin [Lo-Dose Aspirin EC] 81 mg PO DAILY 07/20/17 [History] Diltiazem [Cardizem CD] 120 mg PO DAILY 07/20/17 [History] Losartan/Hydrochlorothiazide [Losartan-HCTZ 100-25 MG] 1 tab PO DAILY 07/20/17 [ History] Potassium Chloride [Klor-Con 10] 10 meq PO BID 09/09/17 [History] Apixaban [Eliquis] 5 mg PO BID 30 Days #60 tablet 09/12/17 [Rx] Levofloxacin [Levaquin] 750 mg PO DAILY 4 Days #4 tab 09/12/17 [Rx] Omeprazole 20 mg PO ACBREAKFAST 10/06/17 [History] Sucralfate [Carafate] 1 gm PO QIDACANDBED 10/06/17 [History] Mag Hydrox/Al Hydrox/Simeth [Maalox Maximum Strength Susp] 5 ml PO PRN 10/08/17 [History] Past Medical History HEENT History: Reports: Impaired Vision Cardiovascular History: Reports: Afib, Hypertension Gastrointestinal History: Reports: GERD Neurological History: Reports: Other (See Below) Other Neuro History: Mild dementia - Infectious Disease History Infectious Disease History: Reports: Chicken Pox, Measles, Mumps - Past Surgical History Female Surgical History: Reports: Hysterectomy Musculoskeletal Surgical History: Reports: Knee Replacement, Other (See Below) Other Musculoskeletal Surgeries/Procedures:: left knee replacement Social & Family History - Family History Family Medical History: Noncontributory - Tobacco Use Smoking Status *Q: Former Smoker Used Tobacco, but Quit: No Month Tobacco Last Used: 1987 Second Hand Smoke Exposure: No - Caffeine Use Caffeine Use: Reports: Coffee - Recreational Drug Use Recreational Drug Use: No H&P Review of Systems - Review of Systems: Review Of Systems: ROS reveals no pertinent complaints other than HPI. Exam - Exam Exam: See Below - Vital Signs Vital Signs: Last Vital Signs Temp 36.6 C 10/08/17 17:30 Pulse 105 H 10/08/17 17:30 Resp 20 10/08/17 17:30 BP 150/104 H 10/08/17 17:30 Pulse Ox 89 L 10/08/17 17:30 Weight: 73.7 kg - Exam General: Alert, Oriented HEENT: Mucosa Moist & [place] Neck: JVD Lungs: Decreased Breath Sounds Cardiovascular: Regular Rate, Regular Rhythm GI/Abdominal Exam: Soft, Non-Tender Extremities: Pedal Edema (+1) Skin: Warm, Dry, Intact Neurological: No: Focal Deficit - Patient Data Lab Results Last 24 hrs: Laboratory Results - last 24 hr 10/08/17 Range/Units 16:15 Amylase 34 (10-90) U/L Lipase 17 (7-80) U/L Result Diagrams: 10/09/17 06:03 10/09/17 06:03 *Q Meaningful Use (ADM) - VTE *Q VTE Criteria *Q: - Stroke *Q Stroke Criteria *Q: - AMI *Q AMI Criteria *Q: Problem List Initiated/Reviewed/Updated: Yes Orders Last 24hrs: Active Orders 24 hr Category Date Time Status Patient Status [ADT] Routine ADT 10/08/17 19:50 Ordered Antiembolic Devices [RC] PER UNIT ROUTINE Care 10/08/17 19:51 Ordered Notify Provider Consults [RC] ASDIRECTED Care 10/08/17 19:51 Ordered Oxygen Therapy [RC] PRN Care 10/08/17 19:50 Ordered Telemetry Monitoring [Cardiac Monitoring] [RC] . Care 10/08/17 17:36 Active DIRECTED VTE/DVT Education [RC] PER UNIT ROUTINE Care 10/08/17 19:50 Ordered Vital Signs [RC] Q4H Care 10/08/17 19:50 Ordered Consult to Physician [CONS] Routine Cons 10/08/17 19:50 Ordered Regular Diet [DIET] Diet 10/08/17 Breakfast Ordered Abdomen Comp [US] Routine Exams 10/08/17 17:34 Ordered CBC WITH AUTO DIFF [HEME] AM Lab 10/09/17 05:11 Ordered COMPREHENSIVE METABOLIC PN,CMP [CHEM] AM Lab 10/09/17 05:11 Ordered CULTURE URINE [RM] Stat Lab 10/08/17 19:50 Ordered UA W/MICROSCOPIC [URIN] Routine Lab 10/08/17 19:50 Ordered Acetaminophen [Tylenol] Med 10/08/17 19:50 Ordered 650 mg PO Q4H PRN Diltiazem [Cardizem CD] Med 10/09/17 09:00 Ordered 120 mg PO DAILY Losartan/Hydrochlorothiazide [Losartan-HCTZ 100-25 MG] Med 10/09/17 09:00 Ordered 1 tab PO DAILY Omeprazole Med 10/09/17 07:30 Ordered 20 mg PO ACBREAKFAST Ondansetron [Zofran] Med 10/08/17 19:50 Ordered 4 mg IVPUSH Q4H PRN Sequential Compression Device [OM.PC] Per Unit Routine Oth 10/08/17 19:51 Ordered Resuscitation Status Routine Resus Stat 10/08/17 19:50 Ordered Medication Orders Diltiazem HCl (Cardizem Cd) 120 mg PO DAILY [facility] Non-Formulary Medication (Losartan/Hydrochlorothiazide [Losartan-Hctz 100-25 Mg] ) 1 tab PO DAILY [facility] Omeprazole (Omeprazole) 20 mg PO ACBREAKFAST [facility] Assessment/Plan Comment:: 77 yo female admitted with congestive heart failure exacerbation and abdominal pain. We will diuresis with IV lasix 40mg IV tonight. Will monitor on telemetry and trend cardiac enzymes. We will evaluate abdominal pain with CT abdomen. Dr. Kim recommending stoping eliquis due to history of anemia needing blood transfusions.
[2017-10-09] MEDS: Omeprazole 20 MG Cap.CR PO SCH (07:48)
[2017-10-09] MEDS ORDERED: Furosemide 40 MG/4 ML VIAL IVPUSH ONE ×2 (07:49→17:38)
[2017-10-09] MEDS: Hydrochlorothiazide/Losartan 12.5-50 mg Tab PO SCH (08:37)
[2017-10-09] MEDS ORDERED: Diltiazem 120 MG Cap.CD PO SCH (09:00)
[2017-10-09] MEDS: Potassium Chloride 10% 20 MEQ/15 ML Soln 30 ML UD Cup PO SCH (09:37)
--- NOTE | 2017-10-09 10:28 | US ---
EXAMINATION: Right upper quadrant ultrasound HISTORY: Pain COMPARISON: 10/08/2017 TECHNIQUE: Grayscale and color Doppler imaging obtained. FINDINGS: The visualized pancreas is normal. The liver is normal in contour and echotexture without a focal hepatic mass. The gallbladder wall thickness is normal. No pericholecystic fluid or shadowing gallstones. The right kidney measures at least 9.4 cm [id number] without evidence of hydronephrosis . The common bile duct measures 3 mm. IMPRESSION: Unremarkable right upper quadrant ultrasound.
[2017-10-09] MEDS ORDERED: Pantoprazole 40 MG Vial IVPUSH ONE (11:01)
--- NOTE | 2017-10-09 14:07 | CT ---
EXAM DATE: 10/08/17 PATIENT'S AGE: 77 Patient: VITALY ESTRADA Facility: [place], [place] Site . Site : [id number] Study: CT Abdomen/Pelvis [id number]/21/2018 8:50:52 PM Ordering Physician: Jessa Newman Final Report: HISTORY: Abdomen pain. TECHNIQUE: The abdomen and pelvis were scanned using helical technique at 3 mm intervals without IV contrast. Sagittal and coronal reconstructions were performed. FINDINGS: Lung bases: Atelectatic lung is seen in the Lingula and right middle lobe. CT lung and patchy infiltrate is seen within both lower lobes. Small bilateral pleural effusions are present. The heart is enlarged. Coronary artery calcification is present. Liver and gallbladder: The liver parenchyma is homogeneous. No calcified gallstones. Spleen, pancreas and adrenal glands: Spleen is normal in size. Unenhanced pancreas parenchyma is homogeneous. A 1.4 cm left adrenal nodule is present measures -4 Hounsfield units most likely an adenoma. Kidneys and bladder: 2 small nonobstructing stones are seen in the lower pole of the right kidney. Small nonobstructing stone is in the upper pole of the left kidney. An 11 mm exophytic cyst is seen off the upper pole of the left kidney. No hydronephrosis. There 3 pelvic phleboliths seen adjacent to the nondilated distal right ureter. A cystocele is present. The bladder is otherwise unremarkable appearing. Retroperitoneum and lymph nodes: There is some calcification in the wall of the aorta without aneurysm. No pathologic periaortic lymphadenopathy is seen. GI tract: The stomach is mildly distended with fluid. No dilated small bowel loops are seen. The appendix is normal. There is prolapse of the ileocecal valve. A 9 mm fatty focus is seen in the lumen of the ascending colon image 85 most likely a small lipoma. Diverticula of the descending and sigmoid colon. No surrounding inflammatory change to suggest diverticulitis. There is no free air in the abdomen. There is no free fluid the pelvis. Abdominal wall: Small fat containing umbilical hernia without inflammatory change. Pelvic organs: The uterus is absent. Osseous structures: There are degenerative changes of the discs and facets within the lower lumbar spine. There is minimal anterior wedging of T7 and T8. No acute fracture lines are seen. IMPRESSION: 1. Bilateral tiny nonobstructing stones. No hydronephrosis or ureteral obstruction. 2. Exophytic 11 mm cyst upper pole left kidney. 3. Small bilateral pleural effusions with bibasilar atelectasis and patchy infiltrates. 4. Moderate cardiomegaly. 5. Colonic diverticulosis. 6. 9 mm fatty focus the ascending colon most likely a small lipoma. 7. 1.4 cm benign-appearing left adrenal adenoma. Dictated by Nickie Michael MD @ 10/08/2017 9:14:26 PM Dictated by: Nickie Michael MD @ 10/08/2017 21:14:58 (Electronic Signature) Report Signed by Proxy. [email or web address]
--- NOTE | 2017-10-09 19:34 | PCM.PN ---
- General Info Date of Service: 10/09/17 Subjective Update: Patient continues to have abdominal pain this morning, she did feel slightly better from receiving the Lasix dose in terms of her shortness of breath and breathing difficulties. However patient still is in some distress secondary to her breathing difficulties. We will continue to Lasix the patient as needed. We will be getting a HIDA scan secondary to the abdominal pain that the patient suffered to ensure that there is no blockage secondary to gallstone etiology. - Patient Data Vitals - Most Recent: Last Vital Signs Temp 36.8 C 10/09/17 16:00 Pulse 100 10/09/17 16:00 Resp 28 H 10/09/17 16:00 BP 132/89 10/09/17 16:00 Pulse Ox 98 10/09/17 16:00 Weight - Most Recent: 72.5 kg I&O - Last 24 Hours: Intake & Output 10/09/17 10/09/17 10/09/17 06:59 14:59 22:59 Intake Total 750 808 Output Total 1200 1300 Balance -450 -492 Lab Results Last 24 Hours: Laboratory Results - last 24 hr 10/08/17 10/09/17 10/09/17 Range/Units 19:50 00:20 06:03 WBC 10.49 (4.0-11.0) K/uL RBC 3.94 L (4.30-5.90) M/uL Hgb 10.0 L (12.0-16.0) g/dL Hct 32.1 L (36.0-46.0) % MCV 81.5 (80.0-98.0) fL MCH 25.4 L (27.0-32.0) pg MCHC 31.2 (31.0-37.0) g/dL RDW Std Deviation 51.6 (28.0-62.0) fl RDW Coeff of Hannah 17 H (11.0-15.0) % Plt Count 310 (150-400) K/uL MPV 10.30 (7.40-12.00) fL Neut % (Auto) 67.5 (48.0-80.0) % Lymph % (Auto) 14.8 L (16.0-40.0) % [place] % (Auto) 8.3 (0.0-15.0) % Eos % (Auto) 8.4 H (0.0-7.0) % Baso % (Auto) 1.0 (0.0-1.5) % Neut # (Auto) 7.1 H (1.4-5.7) K/uL Lymph # (Auto) 1.6 (0.6-2.4) K/uL [place] # (Auto) 0.9 H (0.0-0.8) K/uL Eos # (Auto) 0.9 H (0.0-0.7) K/uL Baso # (Auto) 0.1 (0.0-0.1) K/uL Nucleated RBC % 0.0 /100WBC Nucleated RBCs # 0 K/uL Smear Path Review Absolute Retic (20-80) K/uL Percent Retic (0.5-1.5) % Immature Retic Fraction % Sodium (136-146) mmol/L Potassium (3.5-5.1) mmol/L Chloride (98-110) mmol/L Carbon Dioxide (21-31) mmol/L BUN (6.0-23.0) mg/dL Creatinine (0.6-1.5) mg/dL Est Cr Clr Drug Dosing mL/min Estimated GFR (MDRD) ml/min Glucose (60-110) mg/dL Calcium (8.8-10.8) mg/dL Iron (50-170) ug/dL TIBC (273-456) ug/dL % Saturation (20-55) % Total Bilirubin (0.1-1.5) mg/dL Direct Bilirubin (0.0-0.5) mg/dL Indirect Bilirubin (0.0-1.0) mg/dL AST (5-40) IU/L ALT (8-54) IU/L Alkaline Phosphatase (40-150) Troponin I < 0.10 (0.0-0.29) NG/ML Total Protein (6.0-8.0) g/dL Albumin (3.4-4.8) g/dL Globulin (2.0-3.5) g/dL Albumin/Globulin Ratio (1.3-2.8) Urine Color YELLOW Urine Appearance CLEAR Urine pH 6.5 (5.0-8.0) Ur Specific [place] <= 1.005 (1.001-1.035) Urine Protein NEGATIVE (NEGATIVE) mg/dL Urine Glucose (UA) NEGATIVE (NEGATIVE) mg/dL Urine Ketones NEGATIVE (NEGATIVE) mg/dL Urine Occult Blood MODERATE (NEGATIVE) Urine Nitrite NEGATIVE (NEGATIVE) Urine Bilirubin NEGATIVE (NEGATIVE) Urine Urobilinogen 0.2 (<2.0) EU/dL Ur Leukocyte Esterase NEGATIVE (NEGATIVE) Urine RBC 1-3 (0-2/HPF) Urine WBC 0-2 (0-5/HPF) Ur Epithelial Cells FEW (NONE-FEW) Urine Bacteria RARE (NEGATIVE) 10/09/17 10/09/17 10/09/17 Range/Units 06:03 06:03 06:03 WBC (4.0-11.0) K/uL RBC 3.98 L (4.30-5.90) M/uL Hgb (12.0-16.0) g/dL Hct (36.0-46.0) % MCV (80.0-98.0) fL MCH (27.0-32.0) pg MCHC (31.0-37.0) g/dL RDW Std Deviation (28.0-62.0) fl RDW Coeff of Hannah (11.0-15.0) % Plt Count (150-400) K/uL MPV (7.40-12.00) fL Neut % (Auto) (48.0-80.0) % Lymph % (Auto) (16.0-40.0) % [place] % (Auto) (0.0-15.0) % Eos % (Auto) (0.0-7.0) % Baso % (Auto) (0.0-1.5) % Neut # (Auto) (1.4-5.7) K/uL Lymph # (Auto) (0.6-2.4) K/uL [place] # (Auto) (0.0-0.8) K/uL Eos # (Auto) (0.0-0.7) K/uL Baso # (Auto) (0.0-0.1) K/uL Nucleated RBC % /100WBC Nucleated RBCs # K/uL Smear Path Review SENT TO PATHOLOGY Absolute Retic 126.60 H (20-80) K/uL Percent Retic 3.2 H (0.5-1.5) % Immature Retic Fraction 26 % Sodium 142 (136-146) mmol/L Potassium 3.2 L (3.5-5.1) mmol/L Chloride 106 (98-110) mmol/L Carbon Dioxide 24 (21-31) mmol/L BUN 38 H (6.0-23.0) mg/dL Creatinine 1.5 (0.6-1.5) mg/dL Est Cr Clr Drug Dosing 25.15 mL/min Estimated GFR (MDRD) 33.5 ml/min Glucose 95 (60-110) mg/dL Calcium 9.4 (8.8-10.8) mg/dL Iron (50-170) ug/dL TIBC (273-456) ug/dL % Saturation (20-55) % Total Bilirubin 2.4 H (0.1-1.5) mg/dL Direct Bilirubin (0.0-0.5) mg/dL Indirect Bilirubin (0.0-1.0) mg/dL AST 16 (5-40) IU/L ALT 23 (8-54) IU/L Alkaline Phosphatase 88 (40-150) Troponin I < 0.10 (0.0-0.29) NG/ML Total Protein 6.5 (6.0-8.0) g/dL Albumin 3.3 L (3.4-4.8) g/dL Globulin 3.2 (2.0-3.5) g/dL Albumin/Globulin Ratio 1.0 L (1.3-2.8) Urine Color Urine Appearance Urine pH (5.0-8.0) Ur Specific [place] (1.001-1.035) Urine Protein (NEGATIVE) mg/dL Urine Glucose (UA) (NEGATIVE) mg/dL Urine Ketones (NEGATIVE) mg/dL Urine Occult Blood (NEGATIVE) Urine Nitrite (NEGATIVE) Urine Bilirubin (NEGATIVE) Urine Urobilinogen (<2.0) EU/dL Ur Leukocyte Esterase (NEGATIVE) Urine RBC (0-2/HPF) Urine WBC (0-5/HPF) Ur Epithelial Cells (NONE-FEW) Urine Bacteria (NEGATIVE) 10/09/17 10/09/17 Range/Units 06:03 11:11 WBC (4.0-11.0) K/uL RBC (4.30-5.90) M/uL Hgb (12.0-16.0) g/dL Hct (36.0-46.0) % MCV (80.0-98.0) fL MCH (27.0-32.0) pg MCHC (31.0-37.0) g/dL RDW Std Deviation (28.0-62.0) fl RDW Coeff of Hannah (11.0-15.0) % Plt Count (150-400) K/uL MPV (7.40-12.00) fL Neut % (Auto) (48.0-80.0) % Lymph % (Auto) (16.0-40.0) % [place] % (Auto) (0.0-15.0) % Eos % (Auto) (0.0-7.0) % Baso % (Auto) (0.0-1.5) % Neut # (Auto) (1.4-5.7) K/uL Lymph # (Auto) (0.6-2.4) K/uL [place] # (Auto) (0.0-0.8) K/uL Eos # (Auto) (0.0-0.7) K/uL Baso # (Auto) (0.0-0.1) K/uL Nucleated RBC % /100WBC Nucleated RBCs # K/uL Smear Path Review Absolute Retic (20-80) K/uL Percent Retic (0.5-1.5) % Immature Retic Fraction % Sodium (136-146) mmol/L Potassium (3.5-5.1) mmol/L Chloride (98-110) mmol/L Carbon Dioxide (21-31) mmol/L BUN (6.0-23.0) mg/dL Creatinine (0.6-1.5) mg/dL Est Cr Clr Drug Dosing mL/min Estimated GFR (MDRD) ml/min Glucose (60-110) mg/dL Calcium (8.8-10.8) mg/dL Iron 20 L (50-170) ug/dL TIBC 351 (273-456) ug/dL % Saturation 5.70 L (20-55) % Total Bilirubin 2.3 H (0.1-1.5) mg/dL Direct Bilirubin 0.9 H (0.0-0.5) mg/dL Indirect Bilirubin 1.4 H (0.0-1.0) mg/dL AST (5-40) IU/L ALT (8-54) IU/L Alkaline Phosphatase (40-150) Troponin I (0.0-0.29) NG/ML Total Protein (6.0-8.0) g/dL Albumin (3.4-4.8) g/dL Globulin (2.0-3.5) g/dL Albumin/Globulin Ratio (1.3-2.8) Urine Color Urine Appearance Urine pH (5.0-8.0) Ur Specific [place] (1.001-1.035) Urine Protein (NEGATIVE) mg/dL Urine Glucose (UA) (NEGATIVE) mg/dL Urine Ketones (NEGATIVE) mg/dL Urine Occult Blood (NEGATIVE) Urine Nitrite (NEGATIVE) Urine Bilirubin (NEGATIVE) Urine Urobilinogen (<2.0) EU/dL Ur Leukocyte Esterase (NEGATIVE) Urine RBC (0-2/HPF) Urine WBC (0-5/HPF) Ur Epithelial Cells (NONE-FEW) Urine Bacteria (NEGATIVE) Med Orders - Current: Current Medications Acetaminophen (Tylenol) 650 mg PO Q4H PRN PRN Reason: Pain (Mild 1-3)/fever HCTZ/Losartan Potassium (Hyzaar 50-12.5 Mg) 2 tab PO DAILY [facility] Last Admin: 10/09/17 08:37 Dose: 2 tab Metoprolol Tartrate (Lopressor) 12.5 mg PO Q12HR [facility] Omeprazole (Omeprazole) 20 mg PO ACBREAKFAST [facility] Last Admin: 10/09/17 07:48 Dose: Not Given Ondansetron HCl (Zofran) 4 mg IVPUSH Q4H PRN PRN Reason: Nausea Potassium Chloride (Potassium Chloride) 40 meq PO DAILY [facility] Last Admin: 10/09/17 09:37 Dose: 40 meq Discontinued Medications Diltiazem HCl (Cardizem Cd) 120 mg PO DAILY [facility] Furosemide (Lasix) 40 mg IVPUSH NOW ONE Stop: 10/08/17 17:37 Last Admin: 10/08/17 18:10 Dose: 40 mg Furosemide (Lasix) 40 mg IVPUSH NOW ONE Stop: 10/09/17 07:50 Last Admin: 10/09/17 08:30 Dose: 40 mg Furosemide (Lasix) 40 mg IVPUSH NOW ONE Stop: 10/09/17 17:39 Last Admin: 10/09/17 17:55 Dose: 40 mg Pantoprazole Sodium (Protonix Iv) 40 mg IVPUSH NOW ONE Stop: 10/09/17 11:02 Last Admin: 10/09/17 12:36 Dose: 40 mg - Exam Quality Assessment: Supplemental Oxygen General: Alert, Oriented, Cooperative, Mild Distress Lungs: Crackles, Wheezing Cardiovascular: Regular Rate, Regular Rhythm GI/Abdominal Exam: Tender Extremities: Normal Inspection, No Pedal Edema - Problem List Review Problem List Initiated/Reviewed/Updated: Yes - My Orders Last 24 Hours: My Active Orders 10/09/17 09:00 Potassium Chloride 40 meq PO DAILY 10/09/17 19:30 HIDA with EF [Cholescintigraphy w Pharm Int] [NM] Routine - Plan Plan:: 77 yo female admitted with congestive heart failure exacerbation and abdominal pain. We will diuresis with IV lasix 40mg IV tonight. Will monitor on telemetry and trend cardiac enzymes. We will evaluate abdominal pain with CT abdomen. Dr. Kim recommending stoping eliquis due to history of anemia needing blood transfusions - We shall continue Lasix 40 mg IV as needed for the congestive heart failure dysfunction - Cardiology is on board is also continuing to follow the patient and placed the orders. - Patient to get a HIDA scan to assess for gallbladder etiology -Shall continue to follow the patient and assess symptoms
[2017-10-09] MEDS ORDERED: Metoprolol Tartrate 25 MG Tab PO SCH (21:00)
--- NOTE | 2017-10-10 08:00 | CONS ---
DATE OF CONSULTATION: 10/09/2017 DATE OF : 1940 PRIMARY CARE PHYSICIAN: None PCP REASON FOR CONSULTATION: Atrial fibrillation, heart failure. HISTORY OF PRESENT ILLNESS: She is a 77-year-old female with history of CKD, last creatinine of 1.6, history of former smoker, hypertension, chronic persistent atrial fibrillation, GERD, worsening anemia. She was seen by me in the clinic for atrial fibrillation, as well as a shortness of breath and LV systolic dysfunction. She started being run down since last June. At that time, she came into the emergency room few times with nausea and vomiting. Apparently, she received a GI cocktail, and her symptoms had gone away immediately. She was admitted into the hospital in August because of her shortness of breath and coughing. She was found to have possible pneumonia, heart failure, leukocytosis, anemia, as well as supratherapeutic INR. She received IV Lasix and IV antibiotic at that time, and in September, she was seen in the emergency room twice because of nausea, vomiting as well as anemia. She received the blood transfusions twice in September, the first time was 1 unit of blood and the second time was 2 units of blood. She has an appointment with Dr. Del Toro for possible EGD tomorrow, and then when I saw her in the clinic, she was breathing so rapidly as well as I think she was volume overloaded, so I recommended for her to be admitted in the hospital for IV diuresis, and she agreed to that. She received one dose of Lasix yesterday at 1200, and I gave her another dose of Lasix today 40 mg IV. She is still in atrial fibrillation, it seemed to be chronic persistent, and she used to be on Coumadin before for possible atrial fibrillation or possible stroke in the past. However, due to supratherapeutic INR, as well as possible GI bleeding, it was switched to Eliquis, even though she still requires blood transfusions, so I recommended to stop. PAST MEDICAL HISTORY: Chronic persistent atrial fibrillation, hypertension, chronic anemia, history of heart failure, cardiomyopathy. SOCIAL HISTORY: She was a former smoker. Did not drink alcohol. No drug use. FAMILY HISTORY: No family history of heart disease. RECENT TESTING: She had a stress Thallium test done in 2012, which at that time, showed possible decreased LV ejection fraction at 39%. She also had a cardiac catheterization done in 2013, which did show mild CAD, in other words, with the LAD and stenosis 40%, as well as the circumflex 40% stenosis, and right RCA seemed to be free of any luminal obstruction. REVIEW OF SYSTEMS: Positive for chest discomfort, palpitation, shortness of breath, leg swelling, anemia, otherwise been negative. PHYSICAL EXAMINATION: VITAL SIGNS: Blood pressure is initially 150/104, and heart rate is ranging between 70 to 100, and O2 saturation is 96 on 2 L, respiration rate 18. HEENT: Mild pallor. No jaundice. JVD positive. HEART: Irregular rate, totally irregular. LUNGS: Bibasilar crackle with respiratory wheezing. ABDOMEN: Mild tender. No rebound tenderness. Bowel sounds are present. EXTREMITIES: Legs, trace edema on the left leg. INVESTIGATIONS: CBC showed WBC 10,000, hematocrit of 32, hemoglobin of 10, platelet 310,000, reticulocyte count 3.2. Peripheral blood smear is pending. Sodium 142, potassium 3.2, chloride 106, bicarb 24, BUN 38, creatinine 1.5. Iron low at 20. Total bilirubin is 2.3. Direct bilirubin is 0.9. Amylase and lipase are negative. Troponin was negative. BNP is 1,900. ASSESSMENT AND PLAN: This is a 77-year-old female with history of hypertension, former smoker, history of mild CAD in the past with possible nonischemic cardiomyopathy in the past as well and with chronic persistent atrial fibrillation, here in the hospital for abdominal pain, anemia, possible GI sources, and decompensated heart failure, systolic dysfunction. She will be given IV Lasix, metoprolol will be started for her cardiomyopathy as well as heart rate control as well, she should be on a low-salt diet, she should be restricted for the fluid restriction less than 2 L a day, and JANELL inhibitor will need to be added later on as well. MOHINI / LEONARDO /[id number]
[2017-10-10] MEDS ORDERED: Furosemide 40 MG/4 ML VIAL IVPUSH ONE (10:40)
[2017-10-10] MEDS ORDERED: Potassium Chloride 20 MEQ Tab.ER PO ONE (10:42)
--- NOTE | 2017-10-10 11:59 | PCM.PN ---
<Vinnie Flores Z - Last Filed: 10/10/17 11:46> - General Info Date of Service: 10/10/17 Subjective Update: The patient is symptomatically doing better than she was yesterday, however she still is having abdominal pain for which she will be getting a HIDA scan later today. Patient is still getting her Lasix for her fluid retention secondary to her CHF. We shall continue to monitor. Patient is denying any nausea/vomiting/ fevers or chills or signs of systemic infection. - Patient Data Vitals - Most Recent: Last Vital Signs Temp 36.8 C 10/10/17 08:00 Pulse 97 10/10/17 08:00 Resp 20 10/10/17 08:00 BP 142/87 H 10/10/17 08:00 Pulse Ox 96 10/10/17 08:00 Weight - Most Recent: 73.7 kg I&O - Last 24 Hours: Intake & Output 10/09/17 10/10/17 10/10/17 22:59 06:59 14:59 Intake Total 808 0 Output Total 1300 550 Balance -492 -550 Lab Results Last 24 Hours: Laboratory Results - last 24 hr 10/09/17 10/10/17 10/10/17 Range/Units 11:11 08:42 08:42 WBC 9.95 (4.0-11.0) K/uL RBC 3.99 L (4.30-5.90) M/uL Hgb 10.1 L (12.0-16.0) g/dL Hct 32.9 L (36.0-46.0) % MCV 82.5 (80.0-98.0) fL MCH 25.3 L (27.0-32.0) pg MCHC 30.7 L (31.0-37.0) g/dL RDW Std Deviation 53.5 (28.0-62.0) fl RDW Coeff of Hannah 18 H (11.0-15.0) % Plt Count 278 (150-400) K/uL MPV 10.30 (7.40-12.00) fL Neut % (Auto) 68.9 (48.0-80.0) % Lymph % (Auto) 12.0 L (16.0-40.0) % [place] % (Auto) 8.3 (0.0-15.0) % Eos % (Auto) 9.8 H (0.0-7.0) % Baso % (Auto) 1.0 (0.0-1.5) % Neut # (Auto) 6.9 H (1.4-5.7) K/uL Lymph # (Auto) 1.2 (0.6-2.4) K/uL [place] # (Auto) 0.8 (0.0-0.8) K/uL Eos # (Auto) 1.0 H (0.0-0.7) K/uL Baso # (Auto) 0.1 (0.0-0.1) K/uL Nucleated RBC % 0.0 /100WBC Nucleated RBCs # 0 K/uL Sodium 145 (136-146) mmol/L Potassium 3.3 L (3.5-5.1) mmol/L Chloride 104 (98-110) mmol/L Carbon Dioxide 30 (21-31) mmol/L BUN 41 H (6.0-23.0) mg/dL Creatinine 1.4 (0.6-1.5) mg/dL Est Cr Clr Drug Dosing 26.94 mL/min Estimated GFR (MDRD) 36.3 ml/min Glucose 93 (60-110) mg/dL Calcium 9.2 (8.8-10.8) mg/dL Iron 20 L (50-170) ug/dL TIBC 351 (273-456) ug/dL % Saturation 5.70 L (20-55) % Total Bilirubin 2.2 H (0.1-1.5) mg/dL AST 16 (5-40) IU/L ALT 24 (8-54) IU/L Alkaline Phosphatase 89 (40-150) Total Protein 6.3 (6.0-8.0) g/dL Albumin 3.2 L (3.4-4.8) g/dL Globulin 3.1 (2.0-3.5) g/dL Albumin/Globulin Ratio 1.0 L (1.3-2.8) [place] Results Last 24 Hours: Microbiology 10/08/17 19:50 Urine Culture - Final Urine, Bladder MIXED JUSTIN >100,000 CFU/ML Med Orders - Current: Current Medications Acetaminophen (Tylenol) 650 mg PO Q4H PRN PRN Reason: Pain (Mild 1-3)/fever HCTZ/Losartan Potassium (Hyzaar 50-12.5 Mg) 2 tab PO DAILY [facility] Last Admin: 10/09/17 08:37 Dose: 2 tab Metoprolol Tartrate (Lopressor) 25 mg PO Q12HR [facility] Omeprazole (Omeprazole) 20 mg PO ACBREAKFAST [facility] Last Admin: 10/09/17 07:48 Dose: Not Given Ondansetron HCl (Zofran) 4 mg IVPUSH Q4H PRN PRN Reason: Nausea Potassium Chloride (Potassium Chloride) 40 meq PO DAILY [facility] Last Admin: 10/09/17 09:37 Dose: 40 meq Discontinued Medications Diltiazem HCl (Cardizem Cd) 120 mg PO DAILY [facility] Furosemide (Lasix) 40 mg IVPUSH NOW ONE Stop: 10/08/17 17:37 Last Admin: 10/08/17 18:10 Dose: 40 mg Furosemide (Lasix) 40 mg IVPUSH NOW ONE Stop: 10/09/17 07:50 Last Admin: 10/09/17 08:30 Dose: 40 mg Furosemide (Lasix) 40 mg IVPUSH NOW ONE Stop: 10/09/17 17:39 Last Admin: 10/09/17 17:55 Dose: 40 mg Furosemide (Lasix) 40 mg IVPUSH NOW ONE Stop: 10/10/17 10:41 Metoprolol Tartrate (Lopressor) 12.5 mg PO Q12HR [facility] Last Admin: 10/09/17 21:30 Dose: 12.5 mg Pantoprazole Sodium (Protonix Iv) 40 mg IVPUSH NOW ONE Stop: 10/09/17 11:02 Last Admin: 10/09/17 12:36 Dose: 40 mg Potassium Chloride (Klor-Con M20) 40 meq PO ONETIME ONE Stop: 10/10/17 10:43 - Exam Quality Assessment: Supplemental Oxygen General: Alert, Oriented, Cooperative HEENT: Pupils Equal Lungs: Decreased Breath Sounds Cardiovascular: Regular Rate, Regular Rhythm GI/Abdominal Exam: Tender - Problem List Review Problem List Initiated/Reviewed/Updated: Yes - My Orders Last 24 Hours: My Active Orders 10/09/17 19:30 HIDA with EF [Cholescintigraphy w Pharm Int] [NM] Routine 10/10/17 Breakfast Fluid Restriction [DIET] 10/10/17 Lunch 2 Gram Sodium Diet [DIET] - Plan Plan:: 77 yo female admitted with congestive heart failure exacerbation and abdominal pain. We will diuresis with IV lasix 40mg IV tonight. Will monitor on telemetry and trend cardiac enzymes. We will evaluate abdominal pain with CT abdomen. Dr. Kim recommending stoping eliquis due to history of anemia needing blood transfusions #1. Acute exacerbation of congestive heart failure - Continue with Lasix 40 mg dosing. She'll continue to assess patient's status in terms of fluid retention. #2. Acute abdominal pain Patient to get a HIDA scan today to assess possible gallbladder dysfunction. -Patient to have Carafate started Shall continue to follow and discuss with the patient once we have results of the HIDA scan. <Trent Germain - Last Filed: 10/22/17 11:01> - Patient Data Vitals - Most Recent: Last Vital Signs Temp 36.4 C 10/12/17 13:38 Pulse 100 10/12/17 13:30 Resp 23 H 10/12/17 16:00 BP 108/57 L 10/12/17 16:00 Pulse Ox 97 10/12/17 16:00 Med Orders - Current: Current Medications Discontinued Medications Acetaminophen (Tylenol) 650 mg PO Q4H PRN PRN Reason: Pain (Mild 1-3)/fever Last Admin: 10/12/17 12:16 Dose: 650 mg Diltiazem HCl (Cardizem Cd) 120 mg PO DAILY [facility] Diltiazem HCl (Diltiazem) 10 mg IVPUSH ONETIME ONE Stop: 10/12/17 12:41 Last Admin: 10/12/17 12:50 Dose: 10 mg Diltiazem HCl (Diltiazem) 20 mg IVPUSH ONETIME ONE Stop: 10/12/17 13:00 Last Admin: 10/12/17 13:12 Dose: 20 mg Furosemide (Lasix) 40 mg IVPUSH NOW ONE Stop: 10/08/17 17:37 Last Admin: 10/08/17 18:10 Dose: 40 mg Furosemide (Lasix) 40 mg IVPUSH NOW ONE Stop: 10/09/17 07:50 Last Admin: 10/09/17 08:30 Dose: 40 mg Furosemide (Lasix) 40 mg IVPUSH NOW ONE Stop: 10/09/17 17:39 Last Admin: 10/09/17 17:55 Dose: 40 mg Furosemide (Lasix) 40 mg IVPUSH NOW ONE Stop: 10/10/17 10:41 Last Admin: 10/10/17 13:23 Dose: 40 mg Furosemide (Lasix) 40 mg IVPUSH NOW ONE Stop: 10/11/17 19:49 Last Admin: 10/11/17 22:01 Dose: Not Given Furosemide (Lasix) 40 mg IVPUSH NOW ONE Stop: 10/12/17 07:01 Last Admin: 10/12/17 06:41 Dose: 40 mg Furosemide (Lasix) 40 mg IVPUSH BID [facility] Last Admin: 10/12/17 15:12 Dose: Not Given HCTZ/Losartan Potassium (Hyzaar 50-12.5 Mg) 2 tab PO DAILY [facility] Last Admin: 10/12/17 08:20 Dose: 2 tab Levofloxacin/Dextrose 750 mg/ (Premix) 150 mls @ 100 mls/hr IV ONETIME ONE Stop: 10/12/17 08:57 Last Admin: 10/12/17 08:24 Dose: 100 mls/hr Vancomycin HCl 1 gm/ Sodium (Chloride) 250 mls @ 166 mls/hr IV Q24H [facility] Last Admin: 10/12/17 11:18 Dose: Not Given Vancomycin HCl 1 gm/ Sodium (Chloride) 250 mls @ 166 mls/hr IV Q24H [facility] Last Admin: 10/12/17 10:37 Dose: 166 mls/hr Amiodarone HCl/Dextrose 150 mg (/ Premix) 100 mls @ 400 mls/hr IV NOW ONE PRN Reason: Protocol Stop: 10/12/17 13:26 Piperacillin Sod/Tazobactam (Sod 2.25 gm/ Sodium Chloride) 50 mls @ 100 mls/hr IV Q6H [facility] Last Admin: 10/12/17 15:11 Dose: 100 mls/hr Levofloxacin/Dextrose 750 mg/ (Premix) 150 mls @ 100 mls/hr IV ONETIME ONE Stop: 10/12/17 15:23 Sodium Chloride (Normal Saline) 500 mls @ 999 mls/hr IV STAT ONE Stop: 10/12/17 14:26 Last Admin: 10/12/17 15:11 Dose: 999 mls/hr Metoprolol Tartrate (Lopressor) 12.5 mg PO Q12HR [facility] Last Admin: 10/09/17 21:30 Dose: 12.5 mg Metoprolol Tartrate (Lopressor) 25 mg PO Q12HR [facility] Last Admin: 10/12/17 08:18 Dose: 25 mg Omeprazole (Omeprazole) 20 mg PO ACBREAKFAST [facility] Last Admin: 10/12/17 06:42 Dose: 20 mg Ondansetron HCl (Zofran) 4 mg IVPUSH Q4H PRN PRN Reason: Nausea Last Admin: 10/12/17 12:16 Dose: 4 mg Pantoprazole Sodium (Protonix Iv) 40 mg IVPUSH NOW ONE Stop: 10/09/17 11:02 Last Admin: 10/09/17 12:36 Dose: 40 mg Potassium Chloride (Potassium Chloride) 40 meq PO DAILY [facility] Last Admin: 10/11/17 08:02 Dose: Not Given Potassium Chloride (Klor-Con M20) 40 meq PO ONETIME ONE Stop: 10/10/17 10:43 Last Admin: 10/10/17 13:22 Dose: 40 meq Potassium Chloride (Klor-Con M20) 40 meq PO DAILY [facility] Last Admin: 10/12/17 08:20 Dose: 40 meq Vancomycin HCl (Pharmacy To Dose - Vancomycin) 1 dose .XX ASDIRECTED [facility]
[2017-10-10] MEDS: Hydrochlorothiazide/Losartan 12.5-50 mg Tab PO SCH (13:22)
[2017-10-10] MEDS: Omeprazole 20 MG Cap.CR PO SCH (13:22)
[2017-10-10] MEDS: Potassium Chloride 10% 20 MEQ/15 ML Soln 30 ML UD Cup PO SCH ×2 (13:23→13:32)
[2017-10-10] MEDS: Metoprolol Tartrate 25 MG Tab PO SCH ×2 (13:26→20:47)
--- NOTE | 2017-10-10 14:40 | NM ---
EXAMINATION: Nuclear medicine hepatobiliary study (HIDA) with cholecystokinin (calculation of gallbla dder ejection fraction for function). HISTORY: Pain. PROCEDURE: Following intravenous administration of 3.5 mCi of technetium 99m Choletec, dynamic images were obt ained up to one-hour post injection. This is followed by slow intravenous administration of 1.4 mcg of CCK and additional dynamic images w ere obtained. Gallbladder ejection fraction is calculated. FINDINGS: The initial dynamic images demonstrates clearance of the tracer from the blood pool with the prompt t racer uptake by the liver. By 20 minutes tracer activity is noted in the gallbladder. The post CCK im ages demonstrates optimal contraction of the gallbladder with ejection fraction of 85 percent (normal is equal or more than 35%). Tracer activity is noted in the small intestine following CCK administra tion. IMPRESSION: 1. Patent cystic and common bile ducts. Normal liver function. 2. Normal gallbladder ejection fraction following CCK administration ( 85 %; normal equal or more th an 35%).
--- NOTE | 2017-10-10 15:11 | PCM.PN ---
- General Info Date of Service: 10/10/17 Admission Dx/Problem (Free Text): 44F hx chronic persistent afib cardiomyopathy possible non ischemic HTN former smoker Subjective Update: she felt better breathing improved, HR reasonably controlled 90-110, HIDA scan pending - Review of Systems General: Reports: Weakness HEENT: Reports: No Symptoms Pulmonary: Reports: No Symptoms Cardiovascular: Reports: No Symptoms Gastrointestinal: Reports: Abdominal Pain Genitourinary: Reports: No Symptoms Musculoskeletal: Reports: No Symptoms Skin: Reports: No Symptoms Neurological: Reports: No Symptoms Psychiatric: Reports: No Symptoms - Patient Data Vitals - Most Recent: Last Vital Signs Temp 35.5 C 10/10/17 13:00 Pulse 140 H 10/10/17 13:26 Resp 18 10/10/17 13:00 BP 167/99 H 10/10/17 13:26 Pulse Ox 96 10/10/17 13:00 Weight - Most Recent: 73.7 kg I&O - Last 24 Hours: Intake & Output 10/10/17 10/10/17 10/10/17 06:59 14:59 22:59 Intake Total 0 Output Total 550 Balance -550 Lab Results Last 24 Hours: Laboratory Results - last 24 hr 10/10/17 10/10/17 Range/Units 08:42 08:42 WBC 9.95 (4.0-11.0) K/uL RBC 3.99 L (4.30-5.90) M/uL Hgb 10.1 L (12.0-16.0) g/dL Hct 32.9 L (36.0-46.0) % MCV 82.5 (80.0-98.0) fL MCH 25.3 L (27.0-32.0) pg MCHC 30.7 L (31.0-37.0) g/dL RDW Std Deviation 53.5 (28.0-62.0) fl RDW Coeff of Hannah 18 H (11.0-15.0) % Plt Count 278 (150-400) K/uL MPV 10.30 (7.40-12.00) fL Neut % (Auto) 68.9 (48.0-80.0) % Lymph % (Auto) 12.0 L (16.0-40.0) % [place] % (Auto) 8.3 (0.0-15.0) % Eos % (Auto) 9.8 H (0.0-7.0) % Baso % (Auto) 1.0 (0.0-1.5) % Neut # (Auto) 6.9 H (1.4-5.7) K/uL Lymph # (Auto) 1.2 (0.6-2.4) K/uL [place] # (Auto) 0.8 (0.0-0.8) K/uL Eos # (Auto) 1.0 H (0.0-0.7) K/uL Baso # (Auto) 0.1 (0.0-0.1) K/uL Nucleated RBC % 0.0 /100WBC Nucleated RBCs # 0 K/uL Sodium 145 (136-146) mmol/L Potassium 3.3 L (3.5-5.1) mmol/L Chloride 104 (98-110) mmol/L Carbon Dioxide 30 (21-31) mmol/L BUN 41 H (6.0-23.0) mg/dL Creatinine 1.4 (0.6-1.5) mg/dL Est Cr Clr Drug Dosing 26.94 mL/min Estimated GFR (MDRD) 36.3 ml/min Glucose 93 (60-110) mg/dL Calcium 9.2 (8.8-10.8) mg/dL Total Bilirubin 2.2 H (0.1-1.5) mg/dL AST 16 (5-40) IU/L ALT 24 (8-54) IU/L Alkaline Phosphatase 89 (40-150) Total Protein 6.3 (6.0-8.0) g/dL Albumin 3.2 L (3.4-4.8) g/dL Globulin 3.1 (2.0-3.5) g/dL Albumin/Globulin Ratio 1.0 L (1.3-2.8) [place] Results Last 24 Hours: Microbiology 10/08/17 19:50 Urine Culture - Final Urine, Bladder MIXED JUSTIN >100,000 CFU/ML Med Orders - Current: Current Medications Acetaminophen (Tylenol) 650 mg PO Q4H PRN PRN Reason: Pain (Mild 1-3)/fever HCTZ/Losartan Potassium (Hyzaar 50-12.5 Mg) 2 tab PO DAILY [facility] Last Admin: 10/10/17 13:22 Dose: 2 tab Metoprolol Tartrate (Lopressor) 25 mg PO Q12HR [facility] Last Admin: 10/10/17 13:26 Dose: 25 mg Omeprazole (Omeprazole) 20 mg PO ACBREAKFAST [facility] Last Admin: 10/10/17 13:22 Dose: 20 mg Ondansetron HCl (Zofran) 4 mg IVPUSH Q4H PRN PRN Reason: Nausea Potassium Chloride (Potassium Chloride) 40 meq PO DAILY [facility] Last Admin: 10/10/17 13:32 Dose: Not Given Discontinued Medications Diltiazem HCl (Cardizem Cd) 120 mg PO DAILY [facility] Furosemide (Lasix) 40 mg IVPUSH NOW ONE Stop: 10/08/17 17:37 Last Admin: 10/08/17 18:10 Dose: 40 mg Furosemide (Lasix) 40 mg IVPUSH NOW ONE Stop: 10/09/17 07:50 Last Admin: 10/09/17 08:30 Dose: 40 mg Furosemide (Lasix) 40 mg IVPUSH NOW ONE Stop: 10/09/17 17:39 Last Admin: 10/09/17 17:55 Dose: 40 mg Furosemide (Lasix) 40 mg IVPUSH NOW ONE Stop: 10/10/17 10:41 Last Admin: 10/10/17 13:23 Dose: 40 mg Metoprolol Tartrate (Lopressor) 12.5 mg PO Q12HR [facility] Last Admin: 10/09/17 21:30 Dose: 12.5 mg Pantoprazole Sodium (Protonix Iv) 40 mg IVPUSH NOW ONE Stop: 10/09/17 11:02 Last Admin: 10/09/17 12:36 Dose: 40 mg Potassium Chloride (Klor-Con M20) 40 meq PO ONETIME ONE Stop: 10/10/17 10:43 Last Admin: 10/10/17 13:22 Dose: 40 meq - Exam General: Alert, Oriented HEENT: Pupils Equal, Pupils Reactive Neck: JVD Lungs: Decreased Breath Sounds, Rales Cardiovascular: Irregular Rhythm GI/Abdominal Exam: Normal Bowel Sounds, Tender (Female) Exam: Normal External Exam Extremities: Pedal Edema EKG INTERPRETATION Rhythm: A-Fib - Problem List Review Problem List Initiated/Reviewed/Updated: Yes - My Orders Last 24 Hours: My Active Orders 10/10/17 09:00 Metoprolol Tartrate [Lopressor] 25 mg PO Q12HR - Plan Plan:: 77F CKD mild CAD HTN chronic persistent afib former smoker with decompensated CHF 1. decompensated HF, clinically improved, will continue lasix 40 IV BID, will increase metoprolol 25 BID. Documented cardiomyopathy 39%(perfusion scan)-45%( LV gram) with mild CAD, possibly non ischemic, will obtain echo report from [facility]. 2. anemia possibly GI blood loss, hold off ATC, HCT stable 3. abdominal pain with direct krzysztof elevation, normal ALK AST ALP, US CT unremarkable, HIDA scan pending. 4. Afib [id number] (mild CAD, HTN F, age, HF) = 6, however worsening anemia, from GI blood loss, ATC is on hold for now.
--- NOTE | 2017-10-10 16:51 | PCM.SN ---
- Free Text/Narrative Note: HIDA scan negative for dyskinesis of gallbladder.
[2017-10-11] MEDS: Omeprazole 20 MG Cap.CR PO SCH (06:35)
--- NOTE | 2017-10-11 07:30 | PCM.PN ---
- General Info Date of Service: 10/11/17 Admission Dx/Problem (Free Text): 44F hx chronic persistent afib cardiomyopathy possible non ischemic HTN former smoker Subjective Update: Feeling better this morning. States breathing much improved. Still having mild abd pain mostly RUQ. No nausea/vomiting or diarrhea. Normal bm's. Did get somewhat nauseous with liquid KCl which I switched to pill this morning. No other complaints. Functional Status: Reports: Pain Controlled, Tolerating Diet, Ambulating - Review of Systems General: Reports: Fatigue. Denies: Fever, Weakness, Malaise, Chills HEENT: Denies: Dysphasia, Headaches, Visual Changes Pulmonary: Denies: Shortness of Breath, Pleuritic Chest Pain, Cough, Sputum, Hemoptysis Cardiovascular: Denies: Chest Pain, Palpitations, Edema Gastrointestinal: Reports: Abdominal Pain (RUQ), Nausea. Denies: Constipation, Diarrhea, Vomiting Genitourinary: Denies: Dysuria, Hematuria Musculoskeletal: Denies: Neck Pain, Leg Pain Skin: Denies: Cyanosis Neurological: Denies: Confusion, Dizziness, Headache Psychiatric: Denies: Confusion - Patient Data Vitals - Most Recent: Last Vital Signs Temp 97.7 F 10/11/17 04:55 Pulse 84 10/11/17 04:55 Resp 16 10/11/17 04:55 BP 136/86 10/11/17 04:55 Pulse Ox 91 L 10/11/17 04:55 Weight - Most Recent: 73 kg I&O - Last 24 Hours: Intake & Output 10/10/17 10/11/17 10/11/17 22:59 06:59 14:59 Intake Total 470 370 Output Total 450 950 Balance 20 -580 Lab Results Last 24 Hours: Laboratory Results - last 24 hr 10/10/17 10/10/17 Range/Units 08:42 08:42 WBC 9.95 (4.0-11.0) K/uL RBC 3.99 L (4.30-5.90) M/uL Hgb 10.1 L (12.0-16.0) g/dL Hct 32.9 L (36.0-46.0) % MCV 82.5 (80.0-98.0) fL MCH 25.3 L (27.0-32.0) pg MCHC 30.7 L (31.0-37.0) g/dL RDW Std Deviation 53.5 (28.0-62.0) fl RDW Coeff of Hannah 18 H (11.0-15.0) % Plt Count 278 (150-400) K/uL MPV 10.30 (7.40-12.00) fL Neut % (Auto) 68.9 (48.0-80.0) % Lymph % (Auto) 12.0 L (16.0-40.0) % [place] % (Auto) 8.3 (0.0-15.0) % Eos % (Auto) 9.8 H (0.0-7.0) % Baso % (Auto) 1.0 (0.0-1.5) % Neut # (Auto) 6.9 H (1.4-5.7) K/uL Lymph # (Auto) 1.2 (0.6-2.4) K/uL [place] # (Auto) 0.8 (0.0-0.8) K/uL Eos # (Auto) 1.0 H (0.0-0.7) K/uL Baso # (Auto) 0.1 (0.0-0.1) K/uL Nucleated RBC % 0.0 /100WBC Nucleated RBCs # 0 K/uL Sodium 145 (136-146) mmol/L Potassium 3.3 L (3.5-5.1) mmol/L Chloride 104 (98-110) mmol/L Carbon Dioxide 30 (21-31) mmol/L BUN 41 H (6.0-23.0) mg/dL Creatinine 1.4 (0.6-1.5) mg/dL Est Cr Clr Drug Dosing 26.94 mL/min Estimated GFR (MDRD) 36.3 ml/min Glucose 93 (60-110) mg/dL Calcium 9.2 (8.8-10.8) mg/dL Total Bilirubin 2.2 H (0.1-1.5) mg/dL AST 16 (5-40) IU/L ALT 24 (8-54) IU/L Alkaline Phosphatase 89 (40-150) Total Protein 6.3 (6.0-8.0) g/dL Albumin 3.2 L (3.4-4.8) g/dL Globulin 3.1 (2.0-3.5) g/dL Albumin/Globulin Ratio 1.0 L (1.3-2.8) [place] Results Last 24 Hours: Microbiology 10/08/17 19:50 Urine Culture - Final Urine, Bladder MIXED JUSTIN >100,000 CFU/ML Med Orders - Current: Current Medications Acetaminophen (Tylenol) 650 mg PO Q4H PRN PRN Reason: Pain (Mild 1-3)/fever HCTZ/Losartan Potassium (Hyzaar 50-12.5 Mg) 2 tab PO DAILY [facility] Last Admin: 10/10/17 13:22 Dose: 2 tab Metoprolol Tartrate (Lopressor) 25 mg PO Q12HR [facility] Last Admin: 10/10/17 20:47 Dose: 25 mg Omeprazole (Omeprazole) 20 mg PO ACBREAKFAST [facility] Last Admin: 10/11/17 06:35 Dose: 20 mg Ondansetron HCl (Zofran) 4 mg IVPUSH Q4H PRN PRN Reason: Nausea Potassium Chloride (Potassium Chloride) 40 meq PO DAILY [facility] Last Admin: 10/10/17 13:32 Dose: Not Given Discontinued Medications Diltiazem HCl (Cardizem Cd) 120 mg PO DAILY [facility] Furosemide (Lasix) 40 mg IVPUSH NOW ONE Stop: 10/08/17 17:37 Last Admin: 10/08/17 18:10 Dose: 40 mg Furosemide (Lasix) 40 mg IVPUSH NOW ONE Stop: 10/09/17 07:50 Last Admin: 10/09/17 08:30 Dose: 40 mg Furosemide (Lasix) 40 mg IVPUSH NOW ONE Stop: 10/09/17 17:39 Last Admin: 10/09/17 17:55 Dose: 40 mg Furosemide (Lasix) 40 mg IVPUSH NOW ONE Stop: 10/10/17 10:41 Last Admin: 10/10/17 13:23 Dose: 40 mg Metoprolol Tartrate (Lopressor) 12.5 mg PO Q12HR [facility] Last Admin: 10/09/17 21:30 Dose: 12.5 mg Pantoprazole Sodium (Protonix Iv) 40 mg IVPUSH NOW ONE Stop: 10/09/17 11:02 Last Admin: 10/09/17 12:36 Dose: 40 mg Potassium Chloride (Klor-Con M20) 40 meq PO ONETIME ONE Stop: 10/10/17 10:43 Last Admin: 10/10/17 13:22 Dose: 40 meq - Exam Quality Assessment: DVT Prophylaxis General: Alert, Oriented, Cooperative, No Acute Distress HEENT: Pupils Equal, Pupils Reactive, EOMI, Mucous Membr. Moist/[place] Neck: Supple, Trachea Midline, No JVD Lungs: Normal Respiratory Effort, Crackles (Bibasilar) Cardiovascular: Regular Rate, Regular Rhythm, Murmurs GI/Abdominal Exam: Normal Bowel Sounds, Soft, No Organomegaly, No Distention, Tender (RUQ mild) (Female) Exam: Deferred Extremities: Normal Inspection, Non-Tender, No Pedal Edema, Normal Capillary Refill Peripheral Pulses: 2+: Radial (L), Radial (R), Posterior Tibial (L), Posterior Tibial (R), Dorsalis Pedis (L), Dorsalis Pedis (R) Skin: Warm, Dry, Intact Neurological: No New Focal Deficit Psy/Mental Status: Alert, Normal Affect, Normal Mood - Problem List & Annotations (1) CHF (congestive heart failure) SNOMED Code(s): 24316739 Code(s): I50.9 - HEART FAILURE, UNSPECIFIED Status: Acute Priority: High Current Visit: No Qualifiers: Heart failure type: systolic Heart failure chronicity: acute on chronic Qualified Code(s): I50.23 - Acute on chronic systolic (congestive) heart failure (2) Hypertension SNOMED Code(s): 75514848 Code(s): I10 - ESSENTIAL (PRIMARY) HYPERTENSION Status: Chronic Priority : High Current Visit: Yes Qualifiers: Hypertension type: unspecified Qualified Code(s): I10 - Essential (primary ) hypertension (3) Weakness generalized SNOMED Code(s): 33256331 Code(s): R53.1 - WEAKNESS Status: Acute Priority: High Current Visit: Yes - Problem List Review Problem List Initiated/Reviewed/Updated: Yes - My Orders Last 24 Hours: My Active Orders 10/11/17 07:26 CBC WITH AUTO DIFF [HEME] Stat CMP [COMPREHENSIVE METABOLIC PN,CMP] [CHEM] Routine - Plan Plan:: 77 yo female direct admission from Dr. Lion, cardiology, on 10/08/17 for acute on chronic CHF exacerbation with history of chronic kidney disease, CAD, Htn, chronic persistent a-fib. CHF exacerbation: No longer requiring O2 and clinically improving. Still some bibasilar crackles will cont. lasix 40 IV BID today and get CXR as patient does have mild leukocytosis but is afebrile. Will need at least short term Lasix on discharge with follow-up with Dr. Lion, cardiology. Anemia: Stable at this time but multiple admission in past. Will need appointment with Dr. Del Toro on discharge for EGD, colonscopy. Cont. to hold ATC. Abdominal pain: US and CT unremarkable. HIDA scan yesterday was unremarkable as well. Will need to discuss with Dr. Del Toro with out patient vist. Direct krzysztof elevation has been elevated but normal ALK AST ALP. Afib [id number], however cont. most likely GI bleed resulting in anemia that has required multiple admissions and transfusions. Cont. to hold ATC. VTE: SCD, hold pharm secondary to recent GI bleeds and anemia Dispo: 1-2 days. Will need follow-up with Dr. Lion, Dr. Del Toro, and Dr. Holbrook upon discharge.
[2017-10-11] MEDS: Hydrochlorothiazide/Losartan 12.5-50 mg Tab PO SCH (08:00)
[2017-10-11] MEDS: Metoprolol Tartrate 25 MG Tab PO SCH ×2 (08:01→21:45)
[2017-10-11] MEDS: Potassium Chloride 10% 20 MEQ/15 ML Soln 30 ML UD Cup PO SCH (08:02)
[2017-10-11] MEDS: Potassium Chloride 20 MEQ Tab.ER PO SCH (10:29)
[2017-10-11] MEDS ORDERED: Furosemide 40 MG/4 ML VIAL IVPUSH ONE (19:48)
[2017-10-12] MEDS: Omeprazole 20 MG Cap.CR PO SCH (06:42)
[2017-10-12] MEDS ORDERED: Furosemide 40 MG/4 ML VIAL IVPUSH ONE (07:00)
[2017-10-12] MEDS ORDERED: Levofloxacin/Dextrose 5%-Water 750 MG in Premix Bag 1 BAG IV ONE ×2 (07:28→13:54)
--- NOTE | 2017-10-12 07:30 | PCM.PN ---
- General Info Date of Service: 10/12/17 Admission Dx/Problem (Free Text): 44F hx chronic persistent afib cardiomyopathy possible non ischemic HTN former smoker Subjective Update: Doing okay this morning. Still mildly short of breath but not requiring supplemental oxygen. States she does not like the food and misses salt. Denies any fevers or chills. Some cough. Still some mild abdominal pain in LUQ now after eating. No other complaints. Functional Status: Reports: Pain Controlled, Tolerating Diet, Ambulating, Urinating - Review of Systems General: Reports: Fatigue, Malaise. Denies: Fever, Weakness, Chills HEENT: Denies: Headaches, Visual Changes Pulmonary: Reports: Shortness of Breath, Cough, Sputum. Denies: Pleuritic Chest Pain Cardiovascular: Denies: Chest Pain, Palpitations, Edema Gastrointestinal: Reports: Abdominal Pain. Denies: Constipation, Diarrhea, Nausea, Vomiting Genitourinary: Denies: Dysuria, Hematuria Musculoskeletal: Denies: Neck Pain, Leg Pain Skin: Denies: Cyanosis Neurological: Denies: Confusion, Dizziness, Headache Psychiatric: Denies: Confusion - Patient Data Vitals - Most Recent: Last Vital Signs Temp 97.9 F 10/12/17 04:00 Pulse 97 10/12/17 04:00 Resp 17 10/12/17 04:00 BP 158/94 H 10/12/17 04:00 Pulse Ox 91 L 10/12/17 04:00 Weight - Most Recent: 73 kg I&O - Last 24 Hours: Intake & Output 10/11/17 10/12/17 10/12/17 22:59 06:59 14:59 Intake Total 570 Output Total 800 Balance -230 Lab Results Last 24 Hours: Laboratory Results - last 24 hr 10/11/17 10/11/17 10/12/17 Range/Units 07:36 07:36 05:47 WBC 11.69 H 11.98 H (4.0-11.0) K/uL RBC 4.14 L 4.23 L (4.30-5.90) M/uL Hgb 10.6 L 10.8 L (12.0-16.0) g/dL Hct 33.9 L 34.4 L (36.0-46.0) % MCV 81.9 81.3 (80.0-98.0) fL MCH 25.6 L 25.5 L (27.0-32.0) pg MCHC 31.3 31.4 (31.0-37.0) g/dL RDW Std Deviation 53.7 54.1 (28.0-62.0) fl RDW Coeff of Hannah 18 H 18 H (11.0-15.0) % Plt Count 289 309 (150-400) K/uL MPV 10.60 10.80 (7.40-12.00) fL Neut % (Auto) 63.8 73.6 (48.0-80.0) % Lymph % (Auto) 15.4 L 13.8 L (16.0-40.0) % [place] % (Auto) 8.6 7.0 (0.0-15.0) % Eos % (Auto) 11.2 H 4.8 (0.0-7.0) % Baso % (Auto) 1.0 0.8 (0.0-1.5) % Neut # (Auto) 7.5 H 8.8 H (1.4-5.7) K/uL Lymph # (Auto) 1.8 1.7 (0.6-2.4) K/uL [place] # (Auto) 1.0 H 0.8 (0.0-0.8) K/uL Eos # (Auto) 1.3 H 0.6 (0.0-0.7) K/uL Baso # (Auto) 0.1 0.1 (0.0-0.1) K/uL Nucleated RBC % 0.0 0.0 /100WBC Nucleated RBCs # 0 0 K/uL Sodium 140 (136-146) mmol/L Potassium 3.4 L (3.5-5.1) mmol/L Chloride 102 (98-110) mmol/L Carbon Dioxide 26 (21-31) mmol/L BUN 41 H (6.0-23.0) mg/dL Creatinine 1.2 (0.6-1.5) mg/dL Est Cr Clr Drug Dosing 31.43 mL/min Estimated GFR (MDRD) 43.3 ml/min Glucose 100 (60-110) mg/dL Calcium 9.3 (8.8-10.8) mg/dL Magnesium (1.5-2.3) mEq/L Total Bilirubin 1.9 H (0.1-1.5) mg/dL AST 19 (5-40) IU/L ALT 25 (8-54) IU/L Alkaline Phosphatase 90 (40-150) Total Protein 6.7 (6.0-8.0) g/dL Albumin 3.3 L (3.4-4.8) g/dL Globulin 3.4 (2.0-3.5) g/dL Albumin/Globulin Ratio 1.0 L (1.3-2.8) 10/12/17 Range/Units 05:47 WBC (4.0-11.0) K/uL RBC (4.30-5.90) M/uL Hgb (12.0-16.0) g/dL Hct (36.0-46.0) % MCV (80.0-98.0) fL MCH (27.0-32.0) pg MCHC (31.0-37.0) g/dL RDW Std Deviation (28.0-62.0) fl RDW Coeff of Hannah (11.0-15.0) % Plt Count (150-400) K/uL MPV (7.40-12.00) fL Neut % (Auto) (48.0-80.0) % Lymph % (Auto) (16.0-40.0) % [place] % (Auto) (0.0-15.0) % Eos % (Auto) (0.0-7.0) % Baso % (Auto) (0.0-1.5) % Neut # (Auto) (1.4-5.7) K/uL Lymph # (Auto) (0.6-2.4) K/uL [place] # (Auto) (0.0-0.8) K/uL Eos # (Auto) (0.0-0.7) K/uL Baso # (Auto) (0.0-0.1) K/uL Nucleated RBC % /100WBC Nucleated RBCs # K/uL Sodium 142 (136-146) mmol/L Potassium 3.5 (3.5-5.1) mmol/L Chloride 105 (98-110) mmol/L Carbon Dioxide 25 (21-31) mmol/L BUN 40 H (6.0-23.0) mg/dL Creatinine 1.3 (0.6-1.5) mg/dL Est Cr Clr Drug Dosing 29.02 mL/min Estimated GFR (MDRD) 39.5 ml/min Glucose 124 H (60-110) mg/dL Calcium 9.3 (8.8-10.8) mg/dL Magnesium 1.5 (1.5-2.3) mEq/L Total Bilirubin 1.9 H (0.1-1.5) mg/dL AST 18 (5-40) IU/L ALT 26 (8-54) IU/L Alkaline Phosphatase 91 (40-150) Total Protein 6.9 (6.0-8.0) g/dL Albumin 3.4 (3.4-4.8) g/dL Globulin 3.5 (2.0-3.5) g/dL Albumin/Globulin Ratio 1.0 L (1.3-2.8) Med Orders - Current: Current Medications Acetaminophen (Tylenol) 650 mg PO Q4H PRN PRN Reason: Pain (Mild 1-3)/fever HCTZ/Losartan Potassium (Hyzaar 50-12.5 Mg) 2 tab PO DAILY [facility] Last Admin: 10/11/17 08:00 Dose: 2 tab Levofloxacin/Dextrose 750 mg/ (Premix) 150 mls @ 100 mls/hr IV ONETIME ONE Stop: 10/12/17 08:57 Metoprolol Tartrate (Lopressor) 25 mg PO Q12HR [facility] Last Admin: 10/11/17 21:45 Dose: 25 mg Omeprazole (Omeprazole) 20 mg PO ACBREAKFAST [facility] Last Admin: 10/12/17 06:42 Dose: 20 mg Ondansetron HCl (Zofran) 4 mg IVPUSH Q4H PRN PRN Reason: Nausea Potassium Chloride (Klor-Con M20) 40 meq PO DAILY [facility] Last Admin: 10/11/17 10:29 Dose: 40 meq Vancomycin HCl (Pharmacy To Dose - Vancomycin) 1 dose .XX ASDIRECTED [facility] Discontinued Medications Diltiazem HCl (Cardizem Cd) 120 mg PO DAILY [facility] Furosemide (Lasix) 40 mg IVPUSH NOW ONE Stop: 10/08/17 17:37 Last Admin: 10/08/17 18:10 Dose: 40 mg Furosemide (Lasix) 40 mg IVPUSH NOW ONE Stop: 10/09/17 07:50 Last Admin: 10/09/17 08:30 Dose: 40 mg Furosemide (Lasix) 40 mg IVPUSH NOW ONE Stop: 10/09/17 17:39 Last Admin: 10/09/17 17:55 Dose: 40 mg Furosemide (Lasix) 40 mg IVPUSH NOW ONE Stop: 10/10/17 10:41 Last Admin: 10/10/17 13:23 Dose: 40 mg Furosemide (Lasix) 40 mg IVPUSH NOW ONE Stop: 10/11/17 19:49 Last Admin: 10/11/17 22:01 Dose: Not Given Furosemide (Lasix) 40 mg IVPUSH NOW ONE Stop: 10/12/17 07:01 Last Admin: 10/12/17 06:41 Dose: 40 mg Metoprolol Tartrate (Lopressor) 12.5 mg PO Q12HR [facility] Last Admin: 10/09/17 21:30 Dose: 12.5 mg Pantoprazole Sodium (Protonix Iv) 40 mg IVPUSH NOW ONE Stop: 10/09/17 11:02 Last Admin: 10/09/17 12:36 Dose: 40 mg Potassium Chloride (Potassium Chloride) 40 meq PO DAILY [facility] Last Admin: 10/11/17 08:02 Dose: Not Given Potassium Chloride (Klor-Con M20) 40 meq PO ONETIME ONE Stop: 10/10/17 10:43 Last Admin: 10/10/17 13:22 Dose: 40 meq - Exam Quality Assessment: DVT Prophylaxis General: Alert, Oriented, Cooperative, No Acute Distress HEENT: Pupils Equal, Pupils Reactive, EOMI, Mucous Membr. Moist/[place] Neck: Supple Lungs: Normal Respiratory Effort, Crackles, Rales Cardiovascular: Regular Rate, Regular Rhythm, No Murmurs GI/Abdominal Exam: Normal Bowel Sounds, Soft, Non-Tender, No Organomegaly, No Distention (Female) Exam: Deferred Back Exam: Normal Inspection Extremities: Normal Inspection, Non-Tender, No Pedal Edema, Normal Capillary Refill Peripheral Pulses: 2+: Radial (L), Radial (R), Posterior Tibial (L), Posterior Tibial (R), Dorsalis Pedis (L), Dorsalis Pedis (R) Skin: Warm, Dry, Intact Neurological: No New Focal Deficit Psy/Mental Status: Alert, Normal Affect, Normal Mood - Problem List & Annotations (1) CHF (congestive heart failure) SNOMED Code(s): 17953988 Code(s): I50.9 - HEART FAILURE, UNSPECIFIED Status: Acute Priority: High Current Visit: No Qualifiers: Heart failure type: systolic Heart failure chronicity: acute on chronic Qualified Code(s): I50.23 - Acute on chronic systolic (congestive) heart failure (2) Hypertension SNOMED Code(s): 50701937 Code(s): I10 - ESSENTIAL (PRIMARY) HYPERTENSION Status: Chronic Priority : High Current Visit: Yes Qualifiers: Hypertension type: unspecified Qualified Code(s): I10 - Essential (primary ) hypertension (3) Weakness generalized SNOMED Code(s): 35571838 Code(s): R53.1 - WEAKNESS Status: Acute Priority: High Current Visit: Yes (4) Pneumonia SNOMED Code(s): 535594200 Code(s): J18.9 - PNEUMONIA, UNSPECIFIED ORGANISM Status: Suspected Priority: High Current Visit: Yes Qualifiers: Pneumonia type: due to unspecified organism Laterality: left Lung location: lower lobe of lung Qualified Code(s): J18.1 - Lobar pneumonia, unspecified organism - Problem List Review Problem List Initiated/Reviewed/Updated: Yes - My Orders Last 24 Hours: My Active Orders 10/11/17 10:15 Potassium Chloride [Klor-Con M20] 40 meq PO DAILY 10/11/17 12:17 CXR [Chest 2V] [CR] Routine 10/12/17 07:28 Levofloxacin/Dextrose 5%-Water [Levaquin in D5W 750 MG/150 ML] 750 mg Premix Bag 1 bag IV ONETIME 10/12/17 07:29 CULTURE SPUTUM + SMEAR [RM] Stat 10/12/17 07:30 Vancomycin Pharmacy to Dose [Pharmacy to Dose - Vancomycin] 1 dose .XX ASDIRECTED 10/13/17 05:11 CBC WITH AUTO DIFF [HEME] AM COMPREHENSIVE METABOLIC PN,CMP [CHEM] AM MAGNESIUM [CHEM] AM - Plan Plan:: 77 yo female direct admission from Dr. Lion, cardiology, on 10/08/17 for acute on chronic CHF exacerbation with history of chronic kidney disease, CAD, Htn, chronic persistent a-fib. CHF exacerbation: No longer requiring O2 and clinically improving. Still some bibasilar crackles will cont. lasix 40 IV BID. Will need at least short term Lasix on discharge with follow-up with Dr. Lion, cardiology. Pneumonia: CXR yesterday revealed left mid and right lower lobe ill-defined infiltrate or atelectasis with small effusions unchanged. Did start Levaquin and Vanc this am however patient has been afebrile and small increase in white count could be related to atelectasis and stress. Secondary to history of pneumonia will treat at this time and get sputum cultures. Anemia: Stable at this time but multiple admission in past. Will need appointment with Dr. Del Toro on discharge for EGD, colonscopy. Cont. to hold ATC. Abdominal pain: US and CT unremarkable. HIDA scan yesterday was unremarkable as well. Will need to discuss with Dr. Del Toro with out patient vist. Direct krzysztof elevation has been elevated but normal ALK AST ALP. Afib [id number], however cont. most likely GI bleed resulting in anemia that has required multiple admissions and transfusions. Cont. to hold ATC. VTE: SCD, hold pharm secondary to recent GI bleeds and anemia Dispo: 1-2 days. Will need follow-up with Dr. Lion, Dr. Del Toro, and Dr. Holbrook upon discharge.
[2017-10-12] MEDS: Metoprolol Tartrate 25 MG Tab PO SCH (08:18)
[2017-10-12] MEDS: Potassium Chloride 20 MEQ Tab.ER PO SCH (08:20)
[2017-10-12] MEDS: Hydrochlorothiazide/Losartan 12.5-50 mg Tab PO SCH (08:20)
[2017-10-12] MEDS ORDERED: Furosemide 40 MG/4 ML VIAL IVPUSH SCH (12:00)
[2017-10-12] MEDS ORDERED: Diltiazem 25 MG/5 ML SDV IVPUSH ONE ×2 (12:40→12:59)
--- NOTE | 2017-10-12 12:42 | PCM.SN ---
- Free Text/Narrative Note: Called by nursing that patient HR in 110's to 130's, bp 130's systolic. Gave 10 mg Diltiazem IV x 1
[2017-10-12] MEDS ORDERED: Amiodarone In Dextrose,Iso-Osm 150 MG in Premix Bag 1 BAG IV ONE ×2 (13:12)
[2017-10-12 13:56] LABS: CHLORIDE,CL 103 mmol/L (98-110); SODIUM,NA 142 mmol/L (136-146)
[2017-10-12] MEDS ORDERED: Sodium Chloride 0.9% 500 ML IV ONE (13:56)
[2017-10-12] MEDS ORDERED: Piperacillin/Tazobactam 2.25 GM in Sodium Chloride 0.9% 50 ML IV SCH (14:00)
--- NOTE | 2017-10-12 14:13 | PCM.SN ---
- Free Text/Narrative Note: Arrived at hospital approximately 5 minutes after phone call and added additional 20 mg Cardizem IV. Patient O2 sat in 70's-80's on nonrebreather. Rapid response called. Patient HR responded to 20 cardizem. O2 improved into 90's. Patient did complain of some left sided chest pain. EKG ordered, CXR, CBC , CMP, Trop, CTA. Patient has history of a-fib with [id number] 6 but recent history of anemia with multiple transfusions secondary to suspected GI Bleed. EICU notified of patient as patient transfer to ICU for further management. Lactate elevated to 3.8 will give 500 ml bolus NS recheck q 4 hrs. Will have to watch closely for vol. overload secondary to CHF. Vanc, Zosyn and Levaquin antibiotics going at this time. Added Zosyn after event.
--- NOTE | 2017-10-12 15:41 | PCM.DCSUM1 ---
Discharge Summary - Hospital Course HPI Initial Comments: 77 yo female direct admittion from cardiology clinic on 10/08/17 for CHF exacerbation with pmh of a-fib not on anticoagulant, multiple recent blood transfusions for suspected GI bleed, hypertension, and chronic kidney disease. Brief History: 77 yo female with pmh of CHF with EF of 35-40%, atrial fibrillation and hypertension who presented to Dr. Kim's clinic with shortness of breath. She had a recent hospitalization for pneumonia. During that hospitalization she was switched to Eliquis due to history of supratheraputic INR and GI bleed. She has since had two blood transfusions but denied any blood in her stool. She reported shortness of breath with walking. She reported orthopnea and increase of lower extremity edema. She denied any fevers or cough. She reported abdominal pain. Last stool was on day of admission. She denied any nausea nad vomiting. - Discharge Data Discharge Date: 10/12/17 Discharge Disposition: DC/Tfer to Other 70 Condition: Fair - Discharge Diagnosis/Problem(s) (1) CHF (congestive heart failure) SNOMED Code(s): 73131265 ICD Code: I50.9 - HEART FAILURE, UNSPECIFIED Status: Acute Priority: High Current Visit: No Qualifiers: Heart failure type: systolic Heart failure chronicity: acute on chronic Qualified Code(s): I50.23 - Acute on chronic systolic (congestive) heart failure (2) Hypertension SNOMED Code(s): 48173214 ICD Code: I10 - ESSENTIAL (PRIMARY) HYPERTENSION Status: Chronic Priority : High Current Visit: Yes Qualifiers: Hypertension type: unspecified Qualified Code(s): I10 - Essential (primary ) hypertension (3) Weakness generalized SNOMED Code(s): 23441134 ICD Code: R53.1 - WEAKNESS Status: Acute Priority: High Current Visit: Yes (4) Pneumonia SNOMED Code(s): 067885271 ICD Code: J18.9 - PNEUMONIA, UNSPECIFIED ORGANISM Status: Suspected Priority: High Current Visit: Yes Qualifiers: Pneumonia type: due to unspecified organism Laterality: left Lung location: lower lobe of lung Qualified Code(s): J18.1 - Lobar pneumonia, unspecified organism - Patient Summary/Data Consults: Consultations 10/08/17 19:50 Consult to Physician [CONS] Routine - Discharge Plan Home Medications: Home Meds Aspirin [Lo-Dose Aspirin EC] 81 mg PO DAILY 07/20/17 [History] Diltiazem [Cardizem CD] 120 mg PO DAILY 07/20/17 [History] Losartan/Hydrochlorothiazide [Losartan-HCTZ 100-25 MG] 1 tab PO DAILY 07/20/17 [ History] Potassium Chloride [Klor-Con 10] 10 meq PO BID 09/09/17 [History] Apixaban [Eliquis] 5 mg PO BID 30 Days #60 tablet 09/12/17 [Rx] Levofloxacin [Levaquin] 750 mg PO DAILY 4 Days #4 tab 09/12/17 [Rx] Omeprazole 20 mg PO ACBREAKFAST 10/06/17 [History] Sucralfate [Carafate] 1 gm PO QIDACANDBED 10/06/17 [History] Mag Hydrox/Al Hydrox/Simeth [Maalox Maximum Strength Susp] 5 ml PO PRN 10/08/17 [History] - Discharge Summary/Plan Comment DC Time >30 min.: Yes Discharge Summary/Plan Comment: 77 yo female direct admittion from cardiology clinic on 10/08/17 for CHF exacerbation with pmh of a-fib not on anticoagulant, multiple recent blood transfusions for suspected GI bleed, hypertension, and chronic kidney disease. 77 yo female with pmh of CHF with EF of 35-40%, atrial fibrillation and hypertension who presented to Dr. Kim's clinic with shortness of breath. She had a recent hospitalization for pneumonia. During that hospitalization she was switched to Eliquis due to history of supratheraputic INR and GI bleed. She has since had two blood transfusions but denied any blood in her stool. She reported shortness of breath with walking. She reported orthopnea and increase of lower extremity edema. She denied any fevers or cough. She reported abdominal pain. Last stool was on day of admission. She denied any nausea nad vomiting. Patient was admitted with CHF exacerbation and abdominal pain. She was treated with IV Lasix and cardiac enzymes were trended. All enzymes were negative. CT abdomen, right upper quadrant ultrasound, and HIDA scan were all unremarkable. Patient's decompensated heart failure continued to improve with IV Lasix which she was getting at 40 mg IV twice a day. Her metoprolol was increased to 25 mg twice a day. Patient's hemoglobin was stable during admission however ATC was held secondary to recent GI bleeds. A. fib [id number]=0 but secondary to anemia and GI blood losses ATC continued to be held. On fourth day of admission on exam patient appeared to have rales and crackles. CXR revealed right lower lobe ill-defined infiltrate or atelectasis with small unchanged effusion. Patient also reported to having a productive cough. IV Vanc , Zosyn, and Levaquin started secondary to suspected pneumonia. On fifth day of admission patient seemed to be doing well in the am. At approximately 1200 patient HR increased into 130's with bp 130's systolic. Intitially patient received 10 mg Cardizem but HR did not improve. Patient then became hypoxic sat 70-80's on 15 L nonrebreather. 20 mg Cardizem administered and improved HR to 80-90's. Patient remained hypoxic. CXR, CBC, CMP, ABG and troponin ordered. Patient also complaining of Left sided non radiating chest pain that. Secondary to high risk of thromboembolism CTA was ordered but secondary to GFR of 36.3 radiology did not recommend scan and V/Q scan was unobtainable secondary to no [place] people available to do test. Secondary to above patient was transferred to [place] with Dr. Mullen accepting. Inital trop was unremarkable, lactate was elevated at 3.9 Zosyn, Levaquin and Vanc cont., Rest of labs and studies will be sent with patient. - Review of Systems General: Reports: Fatigue, Malaise - Patient Data Vitals - Most Recent: Last Vital Signs Temp 100.1 F 10/12/17 13:15 Pulse 100 10/12/17 13:50 Resp 18 10/12/17 08:00 BP 159/86 H 10/12/17 13:50 Pulse Ox 98 10/12/17 13:50 Weight - Most Recent: 73 kg I&O - Last 24 hours: Intake & Output 10/12/17 10/12/17 10/12/17 06:59 14:59 22:59 Intake Total 200 150 Output Total 550 Balance -350 150 Lab Results - Last 24 hrs: Laboratory Results - last 24 hr 10/12/17 10/12/17 10/12/17 Range/Units 05:47 05:47 13:33 WBC 11.98 H 22.45 H (4.0-11.0) K/uL RBC 4.23 L 4.37 (4.30-5.90) M/uL Hgb 10.8 L 11.1 L (12.0-16.0) g/dL Hct 34.4 L 35.8 L (36.0-46.0) % MCV 81.3 81.9 (80.0-98.0) fL MCH 25.5 L 25.4 L (27.0-32.0) pg MCHC 31.4 31.0 (31.0-37.0) g/dL RDW Std Deviation 54.1 54.2 (28.0-62.0) fl RDW Coeff of Hannah 18 H 18 H (11.0-15.0) % Plt Count 309 322 (150-400) K/uL MPV 10.80 10.90 (7.40-12.00) fL Neut % (Auto) 73.6 95.8 H (48.0-80.0) % Lymph % (Auto) 13.8 L 1.6 L (16.0-40.0) % [place] % (Auto) 7.0 1.6 (0.0-15.0) % Eos % (Auto) 4.8 1.0 (0.0-7.0) % Baso % (Auto) 0.8 0.0 (0.0-1.5) % Neut # (Auto) 8.8 H 21.5 H (1.4-5.7) K/uL Lymph # (Auto) 1.7 0.4 L (0.6-2.4) K/uL [place] # (Auto) 0.8 0.4 (0.0-0.8) K/uL Eos # (Auto) 0.6 0.2 (0.0-0.7) K/uL Baso # (Auto) 0.1 0.0 (0.0-0.1) K/uL Nucleated RBC % 0.0 0.1 /100WBC Nucleated RBCs # 0 0 K/uL ABG pH (7.35-7.45) ABG pCO2 (35-45) mmHG ABG pO2 (75-100) mmHG ABG HCO3 (22-26) mEq/L ABG Total CO2 ABG Base Excess (-2.0-2.0) Lactate (0.20-2.00) mmol/L Sodium 142 (136-146) mmol/L Potassium 3.5 (3.5-5.1) mmol/L Chloride 105 (98-110) mmol/L Carbon Dioxide 25 (21-31) mmol/L BUN 40 H (6.0-23.0) mg/dL Creatinine 1.3 (0.6-1.5) mg/dL Est Cr Clr Drug Dosing 29.02 mL/min Estimated GFR (MDRD) 39.5 ml/min Glucose 124 H (60-110) mg/dL Calcium 9.3 (8.8-10.8) mg/dL Magnesium 1.5 (1.5-2.3) mEq/L Total Bilirubin 1.9 H (0.1-1.5) mg/dL AST 18 (5-40) IU/L ALT 26 (8-54) IU/L Alkaline Phosphatase 91 (40-150) Troponin I (0.0-0.29) NG/ML Total Protein 6.9 (6.0-8.0) g/dL Albumin 3.4 (3.4-4.8) g/dL Globulin 3.5 (2.0-3.5) g/dL Albumin/Globulin Ratio 1.0 L (1.3-2.8) 10/12/17 10/12/17 10/12/17 Range/Units 13:33 13:33 13:50 WBC (4.0-11.0) K/uL RBC (4.30-5.90) M/uL Hgb (12.0-16.0) g/dL Hct (36.0-46.0) % MCV (80.0-98.0) fL MCH (27.0-32.0) pg MCHC (31.0-37.0) g/dL RDW Std Deviation (28.0-62.0) fl RDW Coeff of Hannah (11.0-15.0) % Plt Count (150-400) K/uL MPV (7.40-12.00) fL Neut % (Auto) (48.0-80.0) % Lymph % (Auto) (16.0-40.0) % [place] % (Auto) (0.0-15.0) % Eos % (Auto) (0.0-7.0) % Baso % (Auto) (0.0-1.5) % Neut # (Auto) (1.4-5.7) K/uL Lymph # (Auto) (0.6-2.4) K/uL [place] # (Auto) (0.0-0.8) K/uL Eos # (Auto) (0.0-0.7) K/uL Baso # (Auto) (0.0-0.1) K/uL Nucleated RBC % /100WBC Nucleated RBCs # K/uL ABG pH 7.459 H (7.35-7.45) ABG pCO2 37 (35-45) mmHG ABG pO2 128 H (75-100) mmHG ABG HCO3 26 (22-26) mEq/L ABG Total CO2 23.9 ABG Base Excess 2.1 H (-2.0-2.0) Lactate 3.9 H (0.20-2.00) mmol/L Sodium 142 (136-146) mmol/L Potassium 4.0 (3.5-5.1) mmol/L Chloride 103 (98-110) mmol/L Carbon Dioxide 23 (21-31) mmol/L BUN 40 H (6.0-23.0) mg/dL Creatinine 1.4 (0.6-1.5) mg/dL Est Cr Clr Drug Dosing 26.94 mL/min Estimated GFR (MDRD) 36.3 ml/min Glucose 134 H (60-110) mg/dL Calcium 9.5 (8.8-10.8) mg/dL Magnesium (1.5-2.3) mEq/L Total Bilirubin 2.5 H (0.1-1.5) mg/dL AST 18 (5-40) IU/L ALT 26 (8-54) IU/L Alkaline Phosphatase 89 (40-150) Troponin I < 0.10 (0.0-0.29) NG/ML Total Protein 7.0 (6.0-8.0) g/dL Albumin 3.4 (3.4-4.8) g/dL Globulin 3.6 H (2.0-3.5) g/dL Albumin/Globulin Ratio 0.9 L (1.3-2.8) Med Orders - Current: Current Medications Acetaminophen (Tylenol) 650 mg PO Q4H PRN PRN Reason: Pain (Mild 1-3)/fever Last Admin: 10/12/17 12:16 Dose: 650 mg Furosemide (Lasix) 40 mg IVPUSH BID [facility] Last Admin: 10/12/17 15:12 Dose: Not Given HCTZ/Losartan Potassium (Hyzaar 50-12.5 Mg) 2 tab PO DAILY [facility] Last Admin: 10/12/17 08:20 Dose: 2 tab Vancomycin HCl 1 gm/ Sodium (Chloride) 250 mls @ 166 mls/hr IV Q24H [facility] Last Admin: 10/12/17 10:37 Dose: 166 mls/hr Piperacillin Sod/Tazobactam (Sod 2.25 gm/ Sodium Chloride) 50 mls @ 100 mls/hr IV Q6H [facility] Last Admin: 10/12/17 15:11 Dose: 100 mls/hr Metoprolol Tartrate (Lopressor) 25 mg PO Q12HR [facility] Last Admin: 10/12/17 08:18 Dose: 25 mg Omeprazole (Omeprazole) 20 mg PO ACBREAKFAST [facility] Last Admin: 10/12/17 06:42 Dose: 20 mg Ondansetron HCl (Zofran) 4 mg IVPUSH Q4H PRN PRN Reason: Nausea Last Admin: 10/12/17 12:16 Dose: 4 mg Potassium Chloride (Klor-Con M20) 40 meq PO DAILY [facility] Last Admin: 10/12/17 08:20 Dose: 40 meq Vancomycin HCl (Pharmacy To Dose - Vancomycin) 1 dose .XX ASDIRECTED [facility] Discontinued Medications Diltiazem HCl (Cardizem Cd) 120 mg PO DAILY [facility] Diltiazem HCl (Diltiazem) 10 mg IVPUSH ONETIME ONE Stop: 10/12/17 12:41 Last Admin: 10/12/17 12:50 Dose: 10 mg Diltiazem HCl (Diltiazem) 20 mg IVPUSH ONETIME ONE Stop: 10/12/17 13:00 Last Admin: 10/12/17 13:12 Dose: 20 mg Furosemide (Lasix) 40 mg IVPUSH NOW ONE Stop: 10/08/17 17:37 Last Admin: 10/08/17 18:10 Dose: 40 mg Furosemide (Lasix) 40 mg IVPUSH NOW ONE Stop: 10/09/17 07:50 Last Admin: 10/09/17 08:30 Dose: 40 mg Furosemide (Lasix) 40 mg IVPUSH NOW ONE Stop: 10/09/17 17:39 Last Admin: 10/09/17 17:55 Dose: 40 mg Furosemide (Lasix) 40 mg IVPUSH NOW ONE Stop: 10/10/17 10:41 Last Admin: 10/10/17 13:23 Dose: 40 mg Furosemide (Lasix) 40 mg IVPUSH NOW ONE Stop: 10/11/17 19:49 Last Admin: 10/11/17 22:01 Dose: Not Given Furosemide (Lasix) 40 mg IVPUSH NOW ONE Stop: 10/12/17 07:01 Last Admin: 10/12/17 06:41 Dose: 40 mg Levofloxacin/Dextrose 750 mg/ (Premix) 150 mls @ 100 mls/hr IV ONETIME ONE Stop: 10/12/17 08:57 Last Admin: 10/12/17 08:24 Dose: 100 mls/hr Vancomycin HCl 1 gm/ Sodium (Chloride) 250 mls @ 166 mls/hr IV Q24H [facility] Last Admin: 10/12/17 11:18 Dose: Not Given Amiodarone HCl/Dextrose 150 mg (/ Premix) 100 mls @ 400 mls/hr IV NOW ONE PRN Reason: Protocol Stop: 10/12/17 13:26 Levofloxacin/Dextrose 750 mg/ (Premix) 150 mls @ 100 mls/hr IV ONETIME ONE Stop: 10/12/17 15:23 Sodium Chloride (Normal Saline) 500 mls @ 999 mls/hr IV STAT ONE Stop: 10/12/17 14:26 Last Admin: 10/12/17 15:11 Dose: 999 mls/hr Metoprolol Tartrate (Lopressor) 12.5 mg PO Q12HR [facility] Last Admin: 10/09/17 21:30 Dose: 12.5 mg Pantoprazole Sodium (Protonix Iv) 40 mg IVPUSH NOW ONE Stop: 10/09/17 11:02 Last Admin: 10/09/17 12:36 Dose: 40 mg Potassium Chloride (Potassium Chloride) 40 meq PO DAILY [facility] Last Admin: 10/11/17 08:02 Dose: Not Given Potassium Chloride (Klor-Con M20) 40 meq PO ONETIME ONE Stop: 10/10/17 10:43 Last Admin: 10/10/17 13:22 Dose: 40 meq - Exam Quality Assessment: Reports: Supplemental Oxygen, DVT Prophylaxis General: Reports: Alert, Oriented, Cooperative HEENT: Reports: Pupils Equal, Pupils Reactive, EOMI, Mucous Membr. Moist/[place] Neck: Reports: Supple Lungs: Reports: Decreased Breath Sounds, Crackles, Rales Cardiovascular: Reports: Irregular Rhythm, Murmurs GI/Abdominal Exam: Normal Bowel Sounds, Soft, No Organomegaly, No Distention, Tender (Female) Exam: Deferred Rectal (Female) Exam: Deferred Back Exam: Reports: Normal Inspection Extremities: Normal Inspection, Non-Tender, No Pedal Edema, Normal Capillary Refill Skin: Reports: Warm, Dry, Intact Neurological: Reports: No New Focal Deficit Psy/Mental Status: Reports: Alert, Normal Affect, Agitated *Q Meaningful Use (DIS) - VTE *Q VTE Criteria *Q: - Stroke *Q Stroke Criteria *Q: - AMI *Q AMI Criteria *Q:
--- NOTE | 2017-10-13 09:36 | CR ---
EXAM DATE: 10/08/17 PATIENT'S AGE: 77 Patient: VITALY ESTRADA Facility: [place], [place] Site . Site : 1940 Study: XRay Chest [id number]/24/2018 2:06:26 PM Ordering Physician: Jessa Newman Final Report: Shortness of breath. Comparison chest x-ray 10/08/2017 Findings : Stable cardiomegaly. Left mid lung and right lower lobe strandy atelectasis or infiltrate. Small effusions. IMPRESSION: 1. Cardiomegaly. Left mid and right lower lobe ill-defined infiltrate or atelectasis. Small effusions without significant change. Dictated by Saranya Sood MD @ Oct 11 2017 2:18PM (Electronic Signature) Report Signed by Proxy. SOTERO
--- NOTE | 2017-10-13 13:29 | CR ---
EXAM DATE: 10/08/17 PATIENT'S AGE: 77 Patient: VITALY ESTRADA Facility: [place], [place] Site . Site : 1940 Study: XRay Chest [id number]/25/[id number] 2:46:36 PM Ordering Physician: Jessa Newman Final Report: Shortness of breath Portable chest comparison chest x-ray 10/11/2017. Findings : Low lung volumes. Bilateral mid and lower lobe linear opacities probably reflect atelectasis . No pneumothorax. No definite effusion seen. Dictated by Saranya Sood MD @ Oct 12 2017 2:59PM (Electronic Signature) Report Signed by Proxy. SOTERO
== END 2017-10-12 17:20 | disposition other institution (70) | DRG 291 ==
LOC: MW.MS 17:13 → MW.ICU 10-12 13:15
PROVIDERS: ADMIT Internal Medicine; ATTEND Internal Medicine
DX: I50.23 Acute on chronic systolic (congestive) heart failure (principal); J18.1 Lobar pneumonia, unspecified organism; I13.0 Hypertensive heart and chronic kidney disease with heart failure and stage 1 through stage 4 chronic kidney disease, or unspecified chronic kidney disease; I48.91 Unspecified atrial fibrillation; N18.9 Chronic kidney disease, unspecified; R53.1 Weakness; Z79.899 Other long term (current) drug therapy; Z87.891 Personal history of nicotine dependence
CPT/HCPCS: 36415; 36600; 51702; 71045; 71045-26; 71046; 71046-26; 74150; 74150-26; 76700; 76700-26; 78227; 78227-26; 80053; 81001; 82150; 82247; 82248; 82803; 83550; 83605; 83690; 83735; 84484; 85025; 85045; 87086; 88104; 93005; A9270-GY; A9537; C9113; J1940; J1956; J2405; J2543; J2805; J3370; J3490; J7040; J7050

== ENCOUNTER 2018-01-30 18:47 | Observation (INO) | payer MEDICARE, BC ==
--- NOTE | 2018-01-30 19:07 | EDM.PDOC ---
ED HPI GENERAL MEDICAL PROBLEM - General Chief Complaint: Respiratory Problem Stated Complaint: SOB Time Seen by Provider: 01/30/18 19:06 Source of Information: Reports: Patient, Family History Limitations: Reports: No Limitations - History of Present Illness INITIAL COMMENTS - FREE TEXT/NARRATIVE: HISTORY AND PHYSICAL: History of present illness: Patient is an 78-year-old female who presents to the emergency room today with complaints of chest pain and shortness of breath for the past 2-3 days. The daughter states that she has taken her mother to physical therapy and was talking with the physical therapist who mentioned that she appeared like she was declining and not improving. She has had pneumonia multiple times over the past year. The last episode of pneumonia she was at a physical rehabilitation facility at [facility] for 2-3 months; just released in December. During this time they did a thoracentisis and had scarring of the lung tissue. Patient has a history of atrial fibrillation, dementia and hypertension Review of systems: As per history of present illness and below otherwise all systems reviewed and negative. Past medical history: As per history of present illness and as reviewed below otherwise noncontributory. Surgical history: As per history of present illness and as reviewed below otherwise noncontributory. Social history: No reported history of drug or alcohol abuse. Family history: As per history of present illness and as reviewed below otherwise noncontributory. Physical exam: General: developed and well-nourished 78-year-old female. Alert and oriented. Nontoxic appearing and in no acute distress. HEENT: Atraumatic, normocephalic, pupils equal and reactive bilaterally, negative for conjunctival pallor or scleral icterus, mucous membranes moist, throat clear, neck supple, nontender, trachea midline. No drooling or trismus noted. No meningeal signs Lungs: Diminished with poor air exchange, breath sounds equal bilaterally, chest nontender. Heart: S1S2, regular rate and rhythm without overt murmur Abdomen: Soft, nondistended, nontender. Negative for masses or hepatosplenomegaly. Negative for costovertebral tenderness. Pelvis: Stable nontender. Genitourinary: Deferred. Rectal: Deferred. Skin: Intact, warm, dry. No lesions or rashes noted. Extremities: Atraumatic, moves all extremities per self without difficulty or deficits, negative for cords or calf pain. Neurovascular unremarkable. Neuro: Awake, alert, oriented. Cranial nerves II through XII unremarkable. Cerebellum unremarkable. Motor and sensory unremarkable throughout. Exam nonfocal. Notes: Patient's oxygen saturation upon arrival is 88% on room air. She does not use home O2. 2 L per nasal cannula does bring her O2 up to 95%. Currently takes Eliquis and ASA for her Afib. Has taken her aspirin today. Chest x-ray shows increased left pleural effusion with left basilar infiltrate. There is a suggestion of a right pleural effusion as there is slight blunting of the right lateral costophrenic angle. All diagnostics were shared with the family and they are agreeable for admission. Dr. Germain was consult did on this case. Cultures ordered requesting Levaquin IV. Diagnostics: CBC, CMP, Troponin, EKG, CXR, and cultures 2 Therapeutics: DuoNeb, Solu-Medrol, Levaquin Impression: Hypoxia Left lobular pneumonia Plan: Survey patient admission ICU overflow with telemetry Definitive disposition and diagnosis as appropriate pending reevaluation and review of above. Chest Pain Score (Numeric/FACES): 6 - Related Data Allergies Allergy/AdvReac Type Severity Reaction Status Date / Time No Known Allergies Allergy Verified 07/20/17 14:41 Home Meds: Home Meds Aspirin [Lo-Dose Aspirin EC] 81 mg PO DAILY 07/20/17 [History] Diltiazem [Cardizem CD] 120 mg PO DAILY 07/20/17 [History] Losartan/Hydrochlorothiazide [Losartan-HCTZ 100-25 MG] 1 tab PO DAILY 07/20/17 [ History] Potassium Chloride [Klor-Con 10] 10 meq PO BID 09/09/17 [History] Apixaban [Eliquis] 5 mg PO BID 30 Days #60 tablet 09/12/17 [Rx] Levofloxacin [Levaquin] 750 mg PO DAILY 4 Days #4 tab 09/12/17 [Rx] Omeprazole 20 mg PO ACBREAKFAST 10/06/17 [History] Sucralfate [Carafate] 1 gm PO QIDACANDBED 10/06/17 [History] Mag Hydrox/Al Hydrox/Simeth [Maalox Maximum Strength Susp] 5 ml PO PRN 10/08/17 [History] Past Medical History HEENT History: Reports: Impaired Vision Cardiovascular History: Reports: Afib, Hypertension Other Cardiovascular History: Congestive Heart Failure Gastrointestinal History: Reports: GERD [employer]ENTS [employer]SP[employer]TER History: Reports: Neurological History: Reports: Other (See Below) Other Neuro History: Mild dementia Hematologic History: Reports: Anemia - Infectious Disease History Infectious Disease History: Reports: Chicken Pox, Measles, Mumps - Past Surgical History Female Surgical History: Reports: Hysterectomy Musculoskeletal Surgical History: Reports: Knee Replacement, Other (See Below) Other Musculoskeletal Surgeries/Procedures:: left knee replacement Social & Family History - Family History Family Medical History: Noncontributory - Tobacco Use Smoking Status *Q: Never Smoker - Caffeine Use Caffeine Use: Reports: Coffee ED ROS GENERAL - Review of Systems Review Of Systems: ROS reveals no pertinent complaints other than HPI. ED EXAM, GENERAL - Physical Exam Exam: See Below (See dictation) Course - Vital Signs Last Recorded V/S: Last Vital Signs Temp 97.6 F 01/30/18 18:55 Pulse 86 01/30/18 18:55 Resp 26 H 01/30/18 18:55 BP 152/92 H 01/30/18 18:55 Pulse Ox 88 L 01/30/18 18:55 - Orders/Labs/Meds Orders: Active Orders 24 hr Category Date Time Status Patient Status [ADT] Stat ADT 01/30/18 20:15 Active Cardiac Monitoring [RC] . DIRECTED Care 01/30/18 20:15 Active EKG Documentation Completion [RC] STAT Care 01/30/18 18:56 Active RT Aerosol Therapy [RC] ASDIRECTED Care 01/30/18 19:12 Active Chest 1V Frontal [CR] Stat Exams 01/30/18 18:56 Taken CULTURE BLOOD [BC] Stat Lab 01/30/18 20:16 Ordered CULTURE BLOOD [BC] Stat Lab 01/30/18 20:16 Ordered Levofloxacin/Dextrose 5%-Water [Levaquin in D5W 750 MG/ Med 01/30/18 20:15 Active 150 ML] 750 mg Premix Bag 1 bag IV ONETIME Blood Culture x2 Reflex Set [OM.PC] Stat Oth 01/30/18 20:15 Ordered Medication Orders Levofloxacin/Dextrose 750 mg/ (Premix) 150 mls @ 100 mls/hr IV ONETIME ONE Stop: 01/30/18 21:44 Labs: Laboratory Tests 01/30/18 01/30/18 Range/Units 19:10 19:10 WBC 10.79 (4.0-11.0) K/uL RBC 4.20 L (4.30-5.90) M/uL Hgb 11.8 L (12.0-16.0) g/dL Hct 38.1 (36.0-46.0) % MCV 90.7 (80.0-98.0) fL MCH 28.1 (27.0-32.0) pg MCHC 31.0 (31.0-37.0) g/dL RDW Std Deviation 55.7 (28.0-62.0) fl RDW Coeff of Hannah 17 H (11.0-15.0) % Plt Count 242 (150-400) K/uL MPV 11.40 (7.40-12.00) fL Neut % (Auto) 64.4 (48.0-80.0) % Lymph % (Auto) 22.5 (16.0-40.0) % [place] % (Auto) 8.9 (0.0-15.0) % Eos % (Auto) 3.5 (0.0-7.0) % Baso % (Auto) 0.7 (0.0-1.5) % Neut # (Auto) 6.9 H (1.4-5.7) K/uL Lymph # (Auto) 2.4 (0.6-2.4) K/uL [place] # (Auto) 1.0 H (0.0-0.8) K/uL Eos # (Auto) 0.4 (0.0-0.7) K/uL Baso # (Auto) 0.1 (0.0-0.1) K/uL Nucleated RBC % 0.2 /100WBC Nucleated RBCs # 0 K/uL Sodium 143 (136-145) mmol/L Potassium 4.0 (3.5-5.1) mmol/L Chloride 107 (98-107) mmol/L Carbon Dioxide 24.5 (21.0-32.0) mmol/L BUN 30 H (7.0-18.0) mg/dL Creatinine 1.5 H (0.6-1.0) mg/dL Est Cr Clr Drug Dosing 23.66 mL/min Estimated GFR (MDRD) 33.4 ml/min Glucose 97 (74-106) mg/dL Calcium 9.2 (8.5-10.1) mg/dL Total Bilirubin 2.5 H (0.2-1.0) mg/dL AST 29 (15-37) IU/L ALT 36 (14-63) IU/L Alkaline Phosphatase 109 (46-116) U/L Troponin I < 0.050 (0.000-0.056) ng/mL Total Protein 7.4 (6.4-8.2) g/dL Albumin 3.2 L (3.4-5.0) g/dL Globulin 4.2 H (2.0-3.5) g/dL Albumin/Globulin Ratio 0.8 L (1.3-2.8) Meds: Medications Generic Name Dose Route Start Last Admin Trade Name Freq PRN Reason Stop Dose Admin Levofloxacin/Dextrose 750 mg/ 150 mls @ 100 mls/hr 01/30/18 20:15 Premix IV 01/30/18 21:44 ONETIME ONE Discontinued Medications Generic Name Dose Route Start Last Admin Trade Name Freq PRN Reason Stop Dose Admin Albuterol/Ipratropium 3 ml 01/30/18 19:12 01/30/18 19:24 Duoneb 3.0-0.5 Mg/3 Ml NEB 01/30/18 19:13 3 ml ONETIME ONE Administration Methylprednisolone Sodium Succinate 125 mg 01/30/18 19:34 01/30/18 19:59 Solu-Medrol IVPUSH 01/30/18 19:35 125 mg ONETIME ONE Administration Departure - Departure Time of Disposition: 20:23 Disposition: Refer to Observation Clinical Impression: Hypoxia Pneumonia Qualifiers: Pneumonia type: due to unspecified organism Laterality: left Lung location: lower lobe of lung Qualified Code(s): J18.1 - Lobar pneumonia, unspecified organism - Discharge Information Referrals: Charly Nicole MD [Primary Care Provider] - Forms: ED Department Discharge - My Orders Last 24 Hours: My Active Orders 01/30/18 18:56 EKG Documentation Completion [RC] STAT Chest 1V Frontal [CR] Stat 01/30/18 19:12 RT Aerosol Therapy [RC] ASDIRECTED 01/30/18 20:15 Patient Status [ADT] Stat Cardiac Monitoring [RC] . DIRECTED Levofloxacin/Dextrose 5%-Water [Levaquin in D5W 750 MG/150 ML] 750 mg Premix Bag 1 bag IV ONETIME Blood Culture x2 Reflex Set [OM.PC] Stat 01/30/18 20:16 CULTURE BLOOD [BC] Stat CULTURE BLOOD [BC] Stat - Assessment/Plan Last 24 Hours: My Active Orders 01/30/18 18:56 EKG Documentation Completion [RC] STAT Chest 1V Frontal [CR] Stat 01/30/18 19:12 RT Aerosol Therapy [RC] ASDIRECTED 01/30/18 20:15 Patient Status [ADT] Stat Cardiac Monitoring [RC] . DIRECTED Levofloxacin/Dextrose 5%-Water [Levaquin in D5W 750 MG/150 ML] 750 mg Premix Bag 1 bag IV ONETIME Blood Culture x2 Reflex Set [OM.PC] Stat 01/30/18 20:16 CULTURE BLOOD [BC] Stat CULTURE BLOOD [BC] Stat
[2018-01-30] MEDS ORDERED: Albuterol/Ipratropium 3.0-0.5 MG/3 ML Neb Soln NEB ONE (19:12)
[2018-01-30] MEDS ORDERED: methylPREDNISolone Sodium Succinate 125 MG/2 ML SDV IVPUSH ONE (19:34)
[2018-01-30 19:39] LABS: CHLORIDE,CL 107 mmol/L (98-107); SODIUM,NA 143 mmol/L (136-145)
[2018-01-30] MEDS ORDERED: Levofloxacin/Dextrose 5%-Water 750 MG in Premix Bag 1 BAG IV ONE (20:15)
[2018-01-30] MEDS ORDERED: Acetaminophen 500 MG Tab PO PRN (22:17)
[2018-01-30] MEDS: Potassium Chloride 10 MEQ Tab.ER PO SCH (23:09)
[2018-01-30] MEDS: Metoprolol Tartrate 50 MG Tab PO SCH (23:10)
[2018-01-30] MEDS: Apixaban 5 MG Tab PO SCH (23:15)
--- NOTE | 2018-01-31 | PCM.HP ---
H&P History of Present Illness - General Date of Service: 01/31/18 Admit Problem/Dx: Admission Diagnosis/Problem Admission Diagnosis/Problem Pneumonia - History of Present Illness Initial Comments - Free Text/Narative: 78 yo female who presents with substernal chest pressure and left sided pain. She reports some shortness of breath and cough. She denies any fevers. CXR. shows left sided infiltrate. Chest Pain Score (Numeric/FACES): 6 - Related Data Allergies/Adverse Reactions: Allergies Allergy/AdvReac Type Severity Reaction Status Date / Time No Known Allergies Allergy Verified 07/20/17 14:41 Home Medications: Home Meds Potassium Chloride [Klor-Con 10] 10 meq PO BID 09/09/17 [History] Apixaban [Eliquis] 5 mg PO BID 30 Days #60 tablet 09/12/17 [Rx] Omeprazole 20 mg PO ACBREAKFAST 10/06/17 [History] Acetaminophen [Tylenol Extra Strength] 500 mg PO Q8H PRN 01/30/18 [History] Aspirin 81 mg PO DAILY 01/30/18 [History] Diltiazem HCl [Dilt-Xr] 180 mg PO DAILY 01/30/18 [History] Furosemide [Lasix] 40 mg PO DAILY 01/30/18 [History] Metoprolol Tartrate 50 mg PO DAILY 01/30/18 [History] traMADol [Ultram] 100 mg PO Q12H PRN 01/30/18 [History] Past Medical History HEENT History: Reports: Impaired Vision Cardiovascular History: Reports: Afib, Hypertension Other Cardiovascular History: Congestive Heart Failure Gastrointestinal History: Reports: GERD [employer] History: Reports: Musculoskeletal History: Reports: Fracture, Other (See Below) Other Musculoskeletal History: collarbone broken Neurological History: Reports: Other (See Below) Other Neuro History: Mild dementia Hematologic History: Reports: Anemia, Blood Transfusion(s) - Infectious Disease History Infectious Disease History: Reports: Chicken Pox, Measles, Mumps - Past Surgical History Cardiovascular Surgical History: Reports: None GI Surgical History: Reports: None Female Surgical History: Reports: Hysterectomy Neurological Surgical History: Reports: None Musculoskeletal Surgical History: Reports: Knee Replacement, Other (See Below) Other Musculoskeletal Surgeries/Procedures:: left knee replacement; elbow surgery Social & Family History - Family History Family Medical History: Noncontributory - Tobacco Use Smoking Status *Q: Former Smoker Used Tobacco, but Quit: Yes Month/Year Tobacco Last Used: 1985 - Caffeine Use Caffeine Use: Reports: Coffee, Soda, Tea - Recreational Drug Use Recreational Drug Use: No H&P Review of Systems - Review of Systems: Review Of Systems: ROS reveals no pertinent complaints other than HPI. Exam - Exam Exam: See Below - Vital Signs Vital Signs: Last Vital Signs Temp 36.3 C 01/30/18 20:28 Pulse 100 01/30/18 23:10 Resp 22 H 01/30/18 20:28 BP 152/87 H 01/30/18 23:10 Pulse Ox 94 L 01/30/18 22:15 Weight: 69.536 kg - Exam General: Alert, Oriented HEENT: Mucosa Moist & [place] Lungs: Clear to Auscultation, Normal Respiratory Effort. No: Crackles, Rhonchi , Wheezing Cardiovascular: Regular Rate, Regular Rhythm GI/Abdominal Exam: Normal Bowel Sounds, Soft, Non-Tender Extremities: Non-Tender, No Pedal Edema Skin: Warm, Dry, Intact - Patient Data Lab Results Last 24 hrs: Laboratory Results - last 24 hr 01/30/18 01/30/18 Range/Units 19:10 19:10 WBC 10.79 (4.0-11.0) K/uL RBC 4.20 L (4.30-5.90) M/uL Hgb 11.8 L (12.0-16.0) g/dL Hct 38.1 (36.0-46.0) % MCV 90.7 (80.0-98.0) fL MCH 28.1 (27.0-32.0) pg MCHC 31.0 (31.0-37.0) g/dL RDW Std Deviation 55.7 (28.0-62.0) fl RDW Coeff of Hannah 17 H (11.0-15.0) % Plt Count 242 (150-400) K/uL MPV 11.40 (7.40-12.00) fL Neut % (Auto) 64.4 (48.0-80.0) % Lymph % (Auto) 22.5 (16.0-40.0) % [place] % (Auto) 8.9 (0.0-15.0) % Eos % (Auto) 3.5 (0.0-7.0) % Baso % (Auto) 0.7 (0.0-1.5) % Neut # (Auto) 6.9 H (1.4-5.7) K/uL Lymph # (Auto) 2.4 (0.6-2.4) K/uL [place] # (Auto) 1.0 H (0.0-0.8) K/uL Eos # (Auto) 0.4 (0.0-0.7) K/uL Baso # (Auto) 0.1 (0.0-0.1) K/uL Nucleated RBC % 0.2 /100WBC Nucleated RBCs # 0 K/uL Sodium 143 (136-145) mmol/L Potassium 4.0 (3.5-5.1) mmol/L Chloride 107 (98-107) mmol/L Carbon Dioxide 24.5 (21.0-32.0) mmol/L BUN 30 H (7.0-18.0) mg/dL Creatinine 1.5 H (0.6-1.0) mg/dL Est Cr Clr Drug Dosing 23.66 mL/min Estimated GFR (MDRD) 33.4 ml/min Glucose 97 (74-106) mg/dL Calcium 9.2 (8.5-10.1) mg/dL Total Bilirubin 2.5 H (0.2-1.0) mg/dL AST 29 (15-37) IU/L ALT 36 (14-63) IU/L Alkaline Phosphatase 109 (46-116) U/L Troponin I < 0.050 (0.000-0.056) ng/mL Total Protein 7.4 (6.4-8.2) g/dL Albumin 3.2 L (3.4-5.0) g/dL Globulin 4.2 H (2.0-3.5) g/dL Albumin/Globulin Ratio 0.8 L (1.3-2.8) Result Diagrams: 01/31/18 06:33 01/31/18 06:33 [place] Results Last 24 hrs: Microbiology 01/30/18 20:28 Anaerobic Blood Culture - Final Blood - Venous Problem List Initiated/Reviewed/Updated: Yes Orders Last 24hrs: Active Orders 24 hr Category Date Time Status Patient Status [ADT] Stat ADT 01/30/18 20:15 Active Cardiac Monitoring [RC] . DIRECTED Care 01/30/18 20:15 Active EKG Documentation Completion [RC] STAT Care 01/30/18 18:56 Active Oxygen Therapy [RC] ASDIRECTED Care 01/30/18 22:15 Active RT Aerosol Therapy [RC] ASDIRECTED Care 01/30/18 19:12 Active Telemetry Monitoring [Cardiac Monitoring] [RC] . Care 01/30/18 21:12 Active DIRECTED Regular Diet [DIET] Diet 01/31/18 Breakfast Active Chest 1V Frontal [CR] Stat Exams 01/30/18 18:56 Taken BASIC METABOLIC PANEL,BMP [CHEM] Routine Lab 01/31/18 05:00 Ordered CBC WITH AUTO DIFF [HEME] Routine Lab 01/31/18 05:00 Ordered CULTURE BLOOD [BC] Stat Lab 01/30/18 20:28 Results CULTURE BLOOD [BC] Stat Lab 01/30/18 20:33 Received TROPONIN I [CHEM] Routine Lab 01/31/18 01:00 Ordered TROPONIN I [CHEM] Routine Lab 01/31/18 07:00 Ordered Acetaminophen [Tylenol Extra Strength] Med 01/30/18 22:17 Active 500 mg PO Q8H PRN Apixaban [Eliquis] Med 01/30/18 22:30 Active 5 mg PO BID Diltiazem [Cardizem CD] Med 01/31/18 09:00 Active 180 mg PO DAILY Levofloxacin/Dextrose 5%-Water [Levaquin in D5W 750 MG/ Med 01/31/18 22:00 Active 150 ML] 750 mg Premix Bag 1 bag IV Q48H Metoprolol Tartrate [Lopressor] Med 01/30/18 22:30 Active 50 mg PO BID Omeprazole Med 01/31/18 07:30 Active 20 mg PO ACBREAKFAST Potassium Chloride [Klor-Con 10] Med 01/30/18 22:30 Active 10 meq PO BID Blood Culture x2 Reflex Set [OM.PC] Stat Oth 01/30/18 20:15 Ordered Medication Orders Acetaminophen (Tylenol Extra Strength) 500 mg PO Q8H PRN PRN Reason: Pain Apixaban (Eliquis) 5 mg PO BID [facility]ONI Last Admin: 01/30/18 23:15 Dose: 5 mg Diltiazem HCl (Cardizem Cd) 180 mg PO DAILY [facility]ONI Levofloxacin/Dextrose 750 mg/ (Premix) 150 mls @ 100 mls/hr IV Q48H [facility] Metoprolol Tartrate (Lopressor) 50 mg PO BID [facility] Last Admin: 01/30/18 23:10 Dose: 50 mg Omeprazole (Omeprazole) 20 mg PO ACBREAKFAST [facility] Potassium Chloride (Klor-Con 10) 10 meq PO BID [facility] Last Admin: 01/30/18 23:09 Dose: 10 meq Assessment/Plan Comment:: 78 yo female who presented with chest pain. She ruled out for acute coronary syndrome with negative serial cardiac enzymes. Patient is requesting discharge home. We will home with levaquin 750 mg q48hrs for four more days.
[2018-01-31] MEDS ORDERED: Omeprazole 20 MG Cap.CR PO SCH (07:30)
[2018-01-31] MEDS: Apixaban 5 MG Tab PO SCH (08:12)
[2018-01-31] MEDS: Potassium Chloride 10 MEQ Tab.ER PO SCH (08:12)
[2018-01-31] MEDS: Metoprolol Tartrate 50 MG Tab PO SCH (08:13)
[2018-01-31] MEDS ORDERED: Diltiazem 180 MG Cap.CD PO SCH (09:00)
--- NOTE | 2018-01-31 16:19 | PCM.SN ---
- Free Text/Narrative Note: Patient sent home with prescription for nebulize with duonebs TID. She needs nebulizer due to her COPD and noted improvement of her symptoms with nebulizer use.
[2018-01-31] MEDS ORDERED: Levofloxacin/Dextrose 5%-Water 750 MG in Premix Bag 1 BAG IV SCH (22:00)
--- NOTE | 2018-02-02 13:00 | CR ---
EXAM DATE: 01/30/18 PATIENT'S AGE: 78 Patient: VITALY ESTRADA Facility: [place], [place] Site . Site : [id number] Study: XRay Chest [id number]/[id number] 7:50:03 PM Ordering Physician: Doctor Spencer Final Report: HISTORY: Shortness of breath. HISTORY: AP portable chest radiograph is compared with 12 October 2017. Cardiac silhouette is enlarged. No cephalization. There is increasing blunting of the left lateral costophrenic angle and left basilar density. Minimal linear density seen in the right base. Slight blunting of right costophrenic angle. IMPRESSION: 1. Persistent cardiomegaly. 2. Increasing left pleural effusion with left basilar atelectasis or minimal infiltrates. 3. Stable linear atelectasis or scarring in the right base. 4. Slight blunting of the right lateral costophrenic angle suggesting trace right pleural effusion. Dictated by Nickie Michael MD @ 01/30/2018 8:03:43 PM Dictated by: Nickie Michael MD @ 01/30/2018 20:03:53 (Electronic Signature) Report Signed by Proxy. SOTERO
== END 2018-01-31 17:15 | disposition home or self-care (01) ==
LOC: MW.ED 18:47 → MW.ICU 20:53
PROVIDERS: ADMIT Internal Medicine; ATTEND Internal Medicine
DX: R07.2 Precordial pain (principal); I10 Essential (primary) hypertension; I48.91 Unspecified atrial fibrillation; I50.9 Heart failure, unspecified; J18.1 Lobar pneumonia, unspecified organism; J44.9 Chronic obstructive pulmonary disease, unspecified; J90 Pleural effusion, not elsewhere classified; K21.9 Gastro-esophageal reflux disease without esophagitis; D64.9 Anemia, unspecified; F03.90 Unspecified dementia, unspecified severity, without behavioral disturbance, psychotic disturbance, mood disturbance, and anxiety; R09.02 Hypoxemia; Z79.82 Long term (current) use of aspirin; Z79.899 Other long term (current) drug therapy; Z87.891 Personal history of nicotine dependence
CPT/HCPCS: 36415; 71045; 80048; 80053; 84484; 85025; 87040; 93005; 94640; 96374; 99285; A9270; J1956; J2930

== ENCOUNTER 2018-04-13 15:25 | Observation (INO) | payer MEDICARE, BC ==
[2018-04-13] MEDS ORDERED: Sodium Chloride 0.9% 2.5 ML Syringe FLUSH PRN ×2 (15:40→17:29)
[2018-04-13] MEDS ORDERED: Sodium Chloride 0.9% 10 ML Syringe FLUSH PRN ×2 (15:40→17:29)
--- NOTE | 2018-04-13 15:49 | EDM.PDOC ---
ED HPI GENERAL MEDICAL PROBLEM - General Chief Complaint: Respiratory Problem Stated Complaint: CHEST PAIN Time Seen by Provider: 04/13/18 15:30 - History of Present Illness INITIAL COMMENTS - FREE TEXT/NARRATIVE: HISTORY AND PHYSICAL: History of present illness: The patient is an 78-year-old female who has a history of hypertension long- standing atrial fibrillation CHF who has been in and out of the hospital over the last 3-4 months for CHF or cardiac output pneumonia and a pleural effusion on the left. According to daughter at bedside she had that drained at [facility] in [place] and she saw her provider in the clinic recently who did a CAT scan which showed reaccumulation. She is scheduled to have a thorocentesis tomorrow here with Dr. Ordonez and the son who lives with her said that she has been slowly deteriorating with her breathing but it was significantly worse today. She says her entire chest wall is discomforting but it is not any one specific location and she is feeling more short of breath. When I asked the family why she accumulated the pleural effusion she says that they were told by the provider and the doctors at [facility] that is because her heart is very weak. The patient has not had abdominal pain or vomiting no diarrhea and has not been eating normally but has been trying. In the ED she is somewhat distracted and exaggerated and majority of the history is from the family. Son lives with her and has been with her constantly for the last several days. Both the patient and the family say that she has been steady decline overall. The patient has been off her eliquis for the last 2 weeks and has not taken her low-dose aspirin today and was advised not to take it tomorrow before her procedure. Review of systems: As per history of present illness and below otherwise all systems reviewed and negative. Past medical history: As per history of present illness and as reviewed below otherwise noncontributory. Surgical history: As per history of present illness and as reviewed below otherwise noncontributory. Social history: No reported history of drug or alcohol abuse. Family history: As per history of present illness and as reviewed below otherwise noncontributory. Physical exam: General: Well-developed well-nourished frail female who is nontoxic and very exaggerated with exam. She is breathless with movement and vital signs are noted by me with an initial O2 sat on room air of 78% HEENT: Atraumatic, normocephalic, negative for conjunctival pallor or scleral icterus, mucous membranes moist, throat clear, neck supple, nontender, trachea midline. Lungs: Coarse breath sounds throughout with rales and rhonchi more at the left base and there is diminished air exchange 1/3-1/[address] on the left. , chest nontender. Heart: S1S2, regular rate but irregularly irregular rhythm consistent with her history of A. fib, negative for clicks, rubs, or JVD. Abdomen: Soft, nondistended, nontender. Negative for masses or hepatosplenomegaly. I pull active bowel sounds Pelvis: Stable nontender. Genitourinary: Deferred. Rectal: Deferred. Extremities: Atraumatic, negative for cords or calf pain. Neurovascular unremarkable. Trace pedal edema but no leg asymmetry Neuro: Awake, alert, oriented. Cranial nerves II through XII unremarkable. Cerebellum unremarkable. Motor is 3-4/5 overall with poor effort and sensory unremarkable throughout. Exam nonfocal. Diagnostics: EKG chest x-ray CBC CMP INR troponin Therapeutics: IV O2 monitor The patient has been off the Eliquis for 2 weeks as she had some blood in her urine and a kidney stone and it was stopped at that time 2 weeks ago. She is currently not taking it because she is having the thoracentesis. The patient is scheduled for an ultrasound-guided thoracentesis tomorrow with Dr. Ordonez. I discussed this case with Dr. Ordonez at 1545 and he is aware that the patient has not taken her Eliquis for 2 weeks and he is willing to do the procedure today. I will discuss the case with the hospitalist and plan for admission post procedure. The family is also aware of this plan and are very appreciative and happy. 1603: Case was discussed with our hospitalist Dr Sosa who accepts the patient for observation admission and is aware that Dr. Ordonez will be doing the thoracentesis. The patient and family at bedside are also aware and are happy. I will follow-up all testing results on this patient as they become available and the patient will go to her procedure and then her room assignment Impression: Recurrent left pleural effusion with history of CHF, hypoxia Definitive disposition and diagnosis as appropriate pending reevaluation and review of above. - Related Data Allergies Allergy/AdvReac Type Severity Reaction Status Date / Time No Known Allergies Allergy Verified 04/13/18 15:44 Home Meds: Home Meds Potassium Chloride [Klor-Con 10] 10 meq PO BID 09/09/17 [History] Omeprazole 20 mg PO ACBREAKFAST 10/06/17 [History] Acetaminophen [Tylenol Extra Strength] 500 mg PO Q8H PRN 01/30/18 [History] Aspirin 81 mg PO DAILY 01/30/18 [History] Diltiazem HCl [Dilt-Xr] 180 mg PO DAILY 01/30/18 [History] Furosemide [Lasix] 60 mg PO DAILY 01/30/18 [History] Metoprolol Tartrate 50 mg PO DAILY 01/30/18 [History] traMADol [Ultram] 100 mg PO Q12H PRN 01/30/18 [History] Losartan [Cozaar] 12.5 mg PO DAILY 04/13/18 [History] Past Medical History HEENT History: Reports: Impaired Vision Cardiovascular History: Reports: Afib, Hypertension Other Cardiovascular History: Congestive Heart Failure Gastrointestinal History: Reports: GERD 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: Musculoskeletal History: Reports: Fracture, Other (See Below) Other Musculoskeletal History: collarbone broken Neurological History: Reports: Other (See Below) Other Neuro History: Mild dementia Hematologic History: Reports: Anemia, Blood Transfusion(s) - Infectious Disease History Infectious Disease History: Reports: Chicken Pox, Measles, Mumps - Past Surgical History Cardiovascular Surgical History: Reports: None GI Surgical History: Reports: None Female Surgical History: Reports: Hysterectomy Neurological Surgical History: Reports: None Musculoskeletal Surgical History: Reports: Knee Replacement, Other (See Below) Other Musculoskeletal Surgeries/Procedures:: left knee replacement; elbow surgery Social & Family History - Family History Family Medical History: Noncontributory - Caffeine Use Caffeine Use: Reports: Coffee, Soda, Tea ED ROS GENERAL - Review of Systems Review Of Systems: ROS reveals no pertinent complaints other than HPI. ED EXAM, GENERAL - Physical Exam Exam: See Below (see dictation) Course - Vital Signs Last Recorded V/S: Last Vital Signs Temp 36.4 C 04/13/18 15:30 Pulse 91 04/13/18 15:30 Resp 24 H 04/13/18 15:30 BP 159/97 H 04/13/18 15:30 Pulse Ox 78 L 04/13/18 15:30 - Orders/Labs/Meds Orders: Active Orders 24 hr Category Date Time Status Patient Status [ADT] Stat ADT 04/13/18 16:04 Ordered Cardiac Monitoring [RC] . DIRECTED Care 04/13/18 15:42 Active EKG Documentation Completion [RC] STAT Care 04/13/18 15:42 Active Oxygen Therapy, ED [RC] ASDIRECTED Care 04/13/18 15:42 Active Pulse Oximetry [RC] ASDIRECTED Care 04/13/18 15:42 Active Thoracentesis W/ US Guide [US] Stat Exams 04/13/18 16:00 Ordered B-TYPE NATRIURETIC PEPTIDE,BNP [CHEM] Stat Lab 04/13/18 15:54 Received CBC WITH AUTO DIFF [HEME] Stat Lab 04/13/18 15:54 Received COMPREHENSIVE METABOLIC PN,CMP [CHEM] Stat Lab 04/13/18 15:54 Received INR,PT,PROTHROMBIN TIME [COAG] Stat Lab 04/13/18 15:54 Received TROPONIN I [CHEM] Stat Lab 04/13/18 15:54 Received Sodium Chloride 0.9% [Saline Flush] Med 04/13/18 15:40 Active 10 ml FLUSH ASDIRECTED PRN Sodium Chloride 0.9% [Saline Flush] Med 04/13/18 15:40 Active 2.5 ml FLUSH ASDIRECTED PRN Saline Lock Insert [OM.PC] Stat Oth 04/13/18 15:41 Ordered Medication Orders Sodium Chloride (Saline Flush) 10 ml FLUSH ASDIRECTED PRN PRN Reason: Keep Vein Open Sodium Chloride (Saline Flush) 2.5 ml FLUSH ASDIRECTED PRN PRN Reason: Keep Vein Open Meds: Medications Generic Name Dose Route Start Last Admin Trade Name Freq PRN Reason Stop Dose Admin Sodium Chloride 10 ml 04/13/18 15:40 Saline Flush FLUSH ASDIRECTED PRN Keep Vein Open Sodium Chloride 2.5 ml 04/13/18 15:40 Saline Flush FLUSH ASDIRECTED PRN Keep Vein Open Departure - Departure Time of Disposition: 16:07 Disposition: Refer to Observation Condition: Good Clinical Impression: Pleural effusion, Hypoxia - Discharge Information Referrals: PCP,None [Primary Care Provider] - Forms: ED Department Discharge - My Orders Last 24 Hours: My Active Orders 04/13/18 15:40 Sodium Chloride 0.9% [Saline Flush] 10 ml FLUSH ASDIRECTED PRN Sodium Chloride 0.9% [Saline Flush] 2.5 ml FLUSH ASDIRECTED PRN 04/13/18 15:41 Saline Lock Insert [OM.PC] Stat 04/13/18 15:42 Cardiac Monitoring [RC] . DIRECTED EKG Documentation Completion [RC] STAT Oxygen Therapy, ED [RC] ASDIRECTED Pulse Oximetry [RC] ASDIRECTED 04/13/18 15:54 B-TYPE NATRIURETIC PEPTIDE,BNP [CHEM] Stat CBC WITH AUTO DIFF [HEME] Stat COMPREHENSIVE METABOLIC PN,CMP [CHEM] Stat INR,PT,PROTHROMBIN TIME [COAG] Stat TROPONIN I [CHEM] Stat 04/13/18 16:00 Thoracentesis W/ US Guide [US] Stat 04/13/18 16:04 Patient Status [ADT] Stat - Assessment/Plan Last 24 Hours: My Active Orders 04/13/18 15:40 Sodium Chloride 0.9% [Saline Flush] 10 ml FLUSH ASDIRECTED PRN Sodium Chloride 0.9% [Saline Flush] 2.5 ml FLUSH ASDIRECTED PRN 04/13/18 15:41 Saline Lock Insert [OM.PC] Stat 04/13/18 15:42 Cardiac Monitoring [RC] . DIRECTED EKG Documentation Completion [RC] STAT Oxygen Therapy, ED [RC] ASDIRECTED Pulse Oximetry [RC] ASDIRECTED 04/13/18 15:54 B-TYPE NATRIURETIC PEPTIDE,BNP [CHEM] Stat CBC WITH AUTO DIFF [HEME] Stat COMPREHENSIVE METABOLIC PN,CMP [CHEM] Stat INR,PT,PROTHROMBIN TIME [COAG] Stat TROPONIN I [CHEM] Stat 04/13/18 16:00 Thoracentesis W/ US Guide [US] Stat 04/13/18 16:04 Patient Status [ADT] Stat
--- NOTE | 2018-04-13 16:02 | CR ---
EXAMINATION: Portable chest radiograph. HISTORY: Shortness of breath. FINDINGS: The trachea is midline. The heart is borderline in size. Chronic interstitial prominence is noted. No pneumothorax. There is a moderate left-sided pleural effusion with adjacent atelectasis/infiltrate. Trace right basilar atelectasis and/or infiltrate. Osseous structures appear osteopenic. IMPRESSION: Moderate left-sided pleural effusion.
[2018-04-13] MEDS ORDERED: Acetaminophen 500 MG Tab PO PRN (17:30)
[2018-04-13] MEDS ORDERED: traMADol 50 MG Tab PO PRN (17:30)
[2018-04-13] MEDS ORDERED: Furosemide 40 MG/4 ML VIAL IVPUSH ONE (17:33)
[2018-04-13] MEDS ORDERED: Nitroglycerin 2% Oint 1 GM UD Packet TOP PRN (17:50)
[2018-04-13] MEDS ORDERED: atorvaSTATin 40 MG Tab PO ONE (17:50)
[2018-04-13] MEDS ORDERED: Clopidogrel 75 MG Tab PO ONE (17:51)
[2018-04-13] MEDS ORDERED: Heparin Sodium 5,000 Units/ML Vial IVPUSH ONE (20:07)
[2018-04-13] MEDS ORDERED: Heparin Sod,Pork In 0.45% Nacl 25,000 UNIT/500 ML IV.SOLN IV SCH (20:15)
--- NOTE | 2018-04-13 20:20 | PCM.HP ---
H&P History of Present Illness - General Date of Service: 04/13/18 Admit Problem/Dx: Admission Diagnosis/Problem Admission Diagnosis/Problem Pleural effusion Source of Information: Family History Limitations: Reports: Other - History of Present Illness Initial Comments - Free Text/Narative: Patient 78 years old female with past medical history of CHF and axial fibrillation presented to emergency room as of shortness of breath, the started for the past few days and was worse today, patient's oxygen saturation was 78% in the emergency room to room air when she arrived. She had an echo done in September 2017 which showed an ejection fraction of 35-40% and the left ventricular hypokinesia. Patient today states she had chest pain, patient is poorly historian. Patient had a left pleural effusion that would drain previously and her primary care physician schedule her to have them drained tomorrow. Due to her respiratory distress emergency room physician ordered IR thoracentesis. As per her daughter, she was told, to have pleural effusion that accumulates secondary to CHF. Plan I discussed with the daughter she don't meet secondary to pneumonia. Patient denies fever chills, she has cough dry cough Onset of Symptoms: Reports: Gradual Duration of Symptoms: Reports: Chronic Location: Reports: Chest - Related Data Allergies/Adverse Reactions: Allergies Allergy/AdvReac Type Severity Reaction Status Date / Time No Known Allergies Allergy Verified 04/13/18 15:44 Home Medications: Home Meds Potassium Chloride [Klor-Con 10] 10 meq PO BID 09/09/17 [History] Omeprazole 20 mg PO ACBREAKFAST 10/06/17 [History] Acetaminophen [Tylenol Extra Strength] 500 mg PO Q8H PRN 01/30/18 [History] Aspirin 81 mg PO DAILY 01/30/18 [History] Diltiazem HCl [Dilt-Xr] 180 mg PO DAILY 01/30/18 [History] Furosemide [Lasix] 60 mg PO DAILY 01/30/18 [History] Metoprolol Tartrate 50 mg PO DAILY 01/30/18 [History] traMADol [Ultram] 100 mg PO Q12H PRN 01/30/18 [History] Apixaban [Eliquis] 2.5 mg PO BID 04/13/18 [History] Losartan [Cozaar] 12.5 mg PO DAILY 04/13/18 [History] Past Medical History HEENT History: Reports: Impaired Vision Cardiovascular History: Reports: Afib, Hypertension Other Cardiovascular History: Congestive Heart Failure Respiratory History: Reports: Pneumonia, Recurrent Gastrointestinal History: Reports: GERD WIRE [employer]ER History: Reports: Musculoskeletal History: Reports: Fracture, Other (See Below) Other Musculoskeletal History: collarbone broken Neurological History: Reports: Other (See Below) Other Neuro History: Mild dementia Psychiatric History: Reports: Anxiety Hematologic History: Reports: Anemia, Blood Transfusion(s) - Infectious Disease History Infectious Disease History: Reports: Chicken Pox, Measles, Mumps - Past Surgical History Cardiovascular Surgical History: Reports: None GI Surgical History: Reports: None Female Surgical History: Reports: Hysterectomy Neurological Surgical History: Reports: None Musculoskeletal Surgical History: Reports: Knee Replacement, Other (See Below) Other Musculoskeletal Surgeries/Procedures:: left knee replacement; elbow surgery Social & Family History - Family History Family Medical History: Noncontributory - Tobacco Use Smoking Status *Q: Former Smoker Years of Tobacco use: 30 Packs/Tins Daily: 1 Used Tobacco, but Quit: Yes Month/Year Tobacco Last Used: 30 years ago - Caffeine Use Caffeine Use: Reports: None - Recreational Drug Use Recreational Drug Use: No H&P Review of Systems - Review of Systems: Review Of Systems: See Below General: Reports: No Symptoms, Fatigue HEENT: Reports: No Symptoms Pulmonary: Reports: Shortness of Breath Cardiovascular: Reports: Chest Pain, Dyspnea on Exertion, Orthopnea, Edema Gastrointestinal: Reports: No Symptoms Genitourinary: Reports: No Symptoms Musculoskeletal: Reports: No Symptoms Skin: Reports: No Symptoms Psychiatric: Reports: No Symptoms Neurological: Reports: No Symptoms Hematologic/Lymphatic: Reports: No Symptoms Immunologic: Reports: No Symptoms Exam - Exam Exam: See Below - Vital Signs Vital Signs: Last Vital Signs Temp 98.3 F 04/13/18 18:03 Pulse 84 04/13/18 18:15 Resp 28 H 04/13/18 18:03 BP 133/89 04/13/18 18:03 Pulse Ox 91 L 04/13/18 18:03 Weight: 149 lb - Exam Quality Assessment: Supplemental Oxygen General: Alert, Oriented HEENT: Conjunctiva Clear, EACs Clear Neck: Supple, Trachea Midline Lungs: Clear to Auscultation Cardiovascular: Normal S1, Normal S2, Irregular Rhythm GI/Abdominal Exam: Normal Bowel Sounds, Soft, Non-Tender, No Organomegaly Extremities: Other (Trace edema) Skin: Warm, Dry Neurological: Cranial Nerves Intact Neuro Extensive - Mental Status: Alert, Oriented x3 - Patient Data Lab Results Last 24 hrs: Laboratory Results - last 24 hr 04/13/18 04/13/18 04/13/18 Range/Units 15:54 15:54 15:54 WBC 8.16 (4.0-11.0) K/uL RBC 4.42 (4.30-5.90) M/uL Hgb 11.9 L (12.0-16.0) g/dL Hct 39.0 (36.0-46.0) % MCV 88.2 (80.0-98.0) fL MCH 26.9 L (27.0-32.0) pg MCHC 30.5 L (31.0-37.0) g/dL RDW Std Deviation 60.0 (28.0-62.0) fl RDW Coeff of Hannah 19 H (11.0-15.0) % Plt Count 244 (150-400) K/uL MPV 11.30 (7.40-12.00) fL Neut % (Auto) 74.2 (48.0-80.0) % Lymph % (Auto) 14.7 L (16.0-40.0) % Galax % (Auto) 9.8 (0.0-15.0) % Eos % (Auto) 0.9 (0.0-7.0) % Baso % (Auto) 0.4 (0.0-1.5) % Neut # (Auto) 6.1 H (1.4-5.7) K/uL Lymph # (Auto) 1.2 (0.6-2.4) K/uL Galax # (Auto) 0.8 (0.0-0.8) K/uL Eos # (Auto) 0.1 (0.0-0.7) K/uL Baso # (Auto) 0.0 (0.0-0.1) K/uL Nucleated RBC % 0.0 /100WBC Nucleated RBCs # 0 K/uL INR 1.24 Sodium 140 (136-145) mmol/L Potassium 4.9 (3.5-5.1) mmol/L Chloride 107 (98-107) mmol/L Carbon Dioxide 25.0 (21.0-32.0) mmol/L BUN 31 H (7.0-18.0) mg/dL Creatinine 1.6 H (0.6-1.0) mg/dL Est Cr Clr Drug Dosing 20.14 mL/min Estimated GFR (MDRD) 31.0 ml/min Glucose 160 H (74-106) mg/dL Calcium 9.4 (8.5-10.1) mg/dL Total Bilirubin 2.1 H (0.2-1.0) mg/dL AST 19 (15-37) IU/L ALT 21 (14-63) IU/L Alkaline Phosphatase 100 (46-116) U/L Troponin I 0.367 H* (0.000-0.056) ng/mL B-Natriuretic Peptide (<100) PG/ML Total Protein 7.9 (6.4-8.2) g/dL Albumin 3.0 L (3.4-5.0) g/dL Globulin 4.9 H (2.0-3.5) g/dL Albumin/Globulin Ratio 0.6 L (1.3-2.8) 04/13/18 Range/Units 15:54 WBC (4.0-11.0) K/uL RBC (4.30-5.90) M/uL Hgb (12.0-16.0) g/dL Hct (36.0-46.0) % MCV (80.0-98.0) fL MCH (27.0-32.0) pg MCHC (31.0-37.0) g/dL RDW Std Deviation (28.0-62.0) fl RDW Coeff of Hannah (11.0-15.0) % Plt Count (150-400) K/uL MPV (7.40-12.00) fL Neut % (Auto) (48.0-80.0) % Lymph % (Auto) (16.0-40.0) % Galax % (Auto) (0.0-15.0) % Eos % (Auto) (0.0-7.0) % Baso % (Auto) (0.0-1.5) % Neut # (Auto) (1.4-5.7) K/uL Lymph # (Auto) (0.6-2.4) K/uL Galax # (Auto) (0.0-0.8) K/uL Eos # (Auto) (0.0-0.7) K/uL Baso # (Auto) (0.0-0.1) K/uL Nucleated RBC % /100WBC Nucleated RBCs # K/uL INR Sodium (136-145) mmol/L Potassium (3.5-5.1) mmol/L Chloride (98-107) mmol/L Carbon Dioxide (21.0-32.0) mmol/L BUN (7.0-18.0) mg/dL Creatinine (0.6-1.0) mg/dL Est Cr Clr Drug Dosing mL/min Estimated GFR (MDRD) ml/min Glucose (74-106) mg/dL Calcium (8.5-10.1) mg/dL Total Bilirubin (0.2-1.0) mg/dL AST (15-37) IU/L ALT (14-63) IU/L Alkaline Phosphatase (46-116) U/L Troponin I (0.000-0.056) ng/mL B-Natriuretic Peptide > 3306 H (<100) PG/ML Total Protein (6.4-8.2) g/dL Albumin (3.4-5.0) g/dL Globulin (2.0-3.5) g/dL Albumin/Globulin Ratio (1.3-2.8) Result Diagrams: 04/13/18 15:54 04/13/18 15:54 EKG INTERPRETATION Rhythm: A-Fib Rate (Beats/Min): 79 ST-T: Normal - Problem List (1) Hypoxia SNOMED Code(s): 280187662 ICD Code: R09.02 - HYPOXEMIA Status: Acute Current Visit: Yes (2) Pleural effusion SNOMED Code(s): 10224595 ICD Code: J90 - PLEURAL EFFUSION, NOT ELSEWHERE CLASSIFIED Status: Acute Current Visit: Yes (3) CHF (congestive heart failure) SNOMED Code(s): 50030300 ICD Code: I50.9 - HEART FAILURE, UNSPECIFIED Status: Acute Priority: High Current Visit: No Qualifiers: Heart failure type: systolic Heart failure chronicity: acute on chronic Qualified Code(s): I50.23 - Acute on chronic systolic (congestive) heart failure (4) Pneumonia SNOMED Code(s): 227328993 ICD Code: J18.9 - PNEUMONIA, UNSPECIFIED ORGANISM Status: Acute Current Visit: No Qualifiers: Pneumonia type: due to unspecified organism Laterality: left Lung location: lower lobe of lung Qualified Code(s): J18.1 - Lobar pneumonia, unspecified organism Problem List Initiated/Reviewed/Updated: Yes Orders Last 24hrs: Active Orders 24 hr Category Date Time Status Patient Status [ADT] Stat ADT 04/13/18 16:04 Active Cardiac Monitoring [RC] CONTINUOUS Care 04/13/18 17:29 Active Up ad Romina [RC] ASDIRECTED Care 04/13/18 17:29 Active VTE/DVT Education [RC] PER UNIT ROUTINE Care 04/13/18 17:29 Active Vital Signs [RC] Q4H Care 04/13/18 17:29 Active 2 Gram Sodium Diet [DIET] Diet 04/13/18 Dinner Active Thoracentesis W/ US Guide [US] Stat Exams 04/13/18 16:00 Ordered CBC WITH AUTO DIFF [HEME] AM Lab 04/14/18 05:11 Ordered CBC WITH AUTO DIFF [HEME] AM Lab 04/15/18 05:11 Ordered CBC WITH AUTO DIFF [HEME] AM Lab 04/16/18 05:11 Ordered COMPREHENSIVE METABOLIC PN,CMP [CHEM] AM Lab 04/14/18 05:11 Ordered COMPREHENSIVE METABOLIC PN,CMP [CHEM] AM Lab 04/15/18 05:11 Ordered COMPREHENSIVE METABOLIC PN,CMP [CHEM] AM Lab 04/16/18 05:11 Ordered TROPONIN I [CHEM] Routine Lab 04/13/18 22:00 Ordered TROPONIN I [CHEM] Routine Lab 04/14/18 04:00 Ordered aPTT [PTT,PARTIAL THROMBOPLSTIN TIME] [COAG] Routine Lab 04/13/18 20:05 Ordered Acetaminophen [Tylenol Extra Strength] Med 04/13/18 17:30 Active 500 mg PO Q8H PRN Aspirin Med 04/14/18 09:00 Active 81 mg PO DAILY Diltiazem [Cardizem CD] Med 04/14/18 09:00 Active 180 mg PO DAILY Heparin Sod,Pork In 0.45% Nacl [Heparin-1/2Ns 25,000 Med 04/13/18 20:15 Active Units/500] 25,000 unit in 500 ml IV TITRATE Losartan [Cozaar] Med 04/14/18 09:00 Active 12.5 mg PO DAILY Metoprolol Tartrate [Lopressor] Med 04/14/18 09:00 Active 50 mg PO DAILY Nitroglycerin [Nitro-Bid 2%] Med 04/13/18 17:50 Active 1 gm TOP Q6H PRN Omeprazole Med 04/14/18 07:30 Active 20 mg PO ACBREAKFAST Potassium Chloride [Klor-Con 10] Med 04/13/18 21:00 Active 10 meq PO BID Sodium Chloride 0.9% [Saline Flush] Med 04/13/18 15:40 Active 10 ml FLUSH ASDIRECTED PRN Sodium Chloride 0.9% [Saline Flush] Med 04/13/18 17:29 Active 10 ml FLUSH ASDIRECTED PRN Sodium Chloride 0.9% [Saline Flush] Med 04/13/18 15:40 Active 2.5 ml FLUSH ASDIRECTED PRN Sodium Chloride 0.9% [Saline Flush] Med 04/13/18 17:29 Active 2.5 ml FLUSH ASDIRECTED PRN traMADol [Ultram] Med 04/13/18 17:30 Active 100 mg PO Q12H PRN Peripheral IV Insertion Adult [OM.PC] Routine Oth 04/13/18 17:29 Ordered Saline Lock Insert [OM.PC] Stat Oth 04/13/18 15:41 Ordered Sequential Compression Device [OM.PC] Per Unit Routine Oth 04/13/18 17:30 Ordered Resuscitation Status Routine Resus Stat 04/13/18 17:29 Ordered Medication Orders Acetaminophen (Tylenol Extra Strength) 500 mg PO Q8H PRN PRN Reason: Pain Last Admin: 04/13/18 17:46 Dose: 500 mg Aspirin (Aspirin) 81 mg PO DAILY BONI Diltiazem HCl (Cardizem Cd) 180 mg PO DAILY [facility] Heparin Sodium/Sodium Chloride (Heparin-1/2ns 25,000 Units/500) 25,000 unit in 500 mls @ 16.22 mls/hr IV TITRATE BONI; Protocol Losartan Potassium (Cozaar) 12.5 mg PO DAILY BONI Metoprolol Tartrate (Lopressor) 50 mg PO DAILY BONI Nitroglycerin (Nitro-Bid 2%) 1 gm TOP Q6H PRN PRN Reason: Chest Pain Omeprazole (Omeprazole) 20 mg PO ACBREAKFAST BONI Potassium Chloride (Klor-Con 10) 10 meq PO BID BONI Sodium Chloride (Saline Flush) 10 ml FLUSH ASDIRECTED PRN PRN Reason: Keep Vein Open Sodium Chloride (Saline Flush) 2.5 ml FLUSH ASDIRECTED PRN PRN Reason: Keep Vein Open Sodium Chloride (Saline Flush) 10 ml FLUSH ASDIRECTED PRN PRN Reason: Keep Vein Open Sodium Chloride (Saline Flush) 2.5 ml FLUSH ASDIRECTED PRN PRN Reason: Keep Vein Open Tramadol HCl (Ultram) 100 mg PO Q12H PRN PRN Reason: pain Assessment and plan Non-ST elevation myocardial infarction?will admit patient to medical telemetry will give patient aspirin to 25 mg by mouth 1 dose and Plavix 600 mg by mouth 1 dose atorvastatin 80 mg by mouth 1 dose and restart patient on heparin drip. Below the cardiac apical and will call ethanol maintenance mechanic consult. Nitroglycerin 1 g topical every 6 hours when necessary for chest pain For the pneumonia will do blood cultures and will start patient on vancomycin as per pharmacy Zosyn 4.5 g every 6 hours and Levaquin 750 mg every 24 hours. For the atrial fibrillation will continue patient with CAT scans and 180 mg by mouth daily and metoprolol tartrate 50 mg by mouth daily For Vladimir prophylaxis omeprazole 20 mg by mouth daily
[2018-04-13] MEDS ORDERED: Morphine 2 MG/ML Syringe IVPUSH PRN (21:26)
[2018-04-13] MEDS ORDERED: Levofloxacin/Dextrose 5%-Water 750 MG in Premix Bag 1 BAG IV ONE (21:28)
[2018-04-13] MEDS: Potassium Chloride 10 MEQ Tab.ER PO SCH (21:33)
[2018-04-13] MEDS ORDERED: methylPREDNISolone Sodium Succinate 125 MG/2 ML SDV IVPUSH ONE (21:38)
[2018-04-13] MEDS: Piperacillin/Tazobactam 2.25 GM in Sodium Chloride 0.9% 50 ML IV SCH (21:55)
[2018-04-14] MEDS: Piperacillin/Tazobactam 2.25 GM in Sodium Chloride 0.9% 50 ML IV SCH ×3 (04:31→21:32)
[2018-04-14] MEDS: Omeprazole 20 MG Cap.CR PO SCH (06:47)
[2018-04-14] MEDS: Losartan 50 MG Tab PO SCH (08:56)
[2018-04-14] MEDS: Diltiazem 180 MG Cap.CD PO SCH (08:58)
[2018-04-14] MEDS: Metoprolol Tartrate 50 MG Tab PO SCH (08:58)
[2018-04-14] MEDS: Potassium Chloride 10 MEQ Tab.ER PO SCH ×2 (08:58→21:32)
[2018-04-14] MEDS: Clopidogrel 75 MG Tab PO SCH (08:59)
[2018-04-14] MEDS ORDERED: Furosemide 40 MG Tab PO SCH (09:00)
[2018-04-14] MEDS ORDERED: Aspirin 81 MG Tab.Chew PO SCH (09:00)
[2018-04-14] MEDS: Aspirin 81 MG Tab.Chew PO SCH (09:20)
[2018-04-14] MEDS: methylPREDNISolone Sodium Succinate 40 MG/1 ML SDV IVPUSH SCH ×3 (12:16→23:51)
--- NOTE | 2018-04-14 13:10 | PCM.PN ---
- General Info Date of Service: 04/14/18 Subjective Update: Patient felling well , no chest pain , O2 was titrated down to 1 L in the afternoon. - Review of Systems General: Reports: No Symptoms HEENT: Reports: No Symptoms Pulmonary: Reports: Shortness of Breath Cardiovascular: Reports: Dyspnea on Exertion, Orthopnea Gastrointestinal: Reports: No Symptoms Genitourinary: Reports: No Symptoms Musculoskeletal: Reports: No Symptoms Skin: Reports: No Symptoms Neurological: Reports: No Symptoms Psychiatric: Reports: No Symptoms - Patient Data Vitals - Most Recent: Last Vital Signs Temp 98.4 F 04/14/18 11:44 Pulse 80 04/14/18 11:44 Resp 20 04/14/18 11:44 BP 141/84 H 04/14/18 11:44 Pulse Ox 93 L 04/14/18 11:44 Weight - Most Recent: 149 lb I&O - Last 24 Hours: Intake & Output 04/13/18 04/14/18 04/14/18 22:59 06:59 14:59 Intake Total 50 470 Output Total 1200 Balance 50 -730 Lab Results Last 24 Hours: Laboratory Results - last 24 hr 04/13/18 04/13/18 04/13/18 Range/Units 15:54 15:54 15:54 WBC 8.16 (4.0-11.0) K/uL RBC 4.42 (4.30-5.90) M/uL Hgb 11.9 L (12.0-16.0) g/dL Hct 39.0 (36.0-46.0) % MCV 88.2 (80.0-98.0) fL MCH 26.9 L (27.0-32.0) pg MCHC 30.5 L (31.0-37.0) g/dL RDW Std Deviation 60.0 (28.0-62.0) fl RDW Coeff of Hannah 19 H (11.0-15.0) % Plt Count 244 (150-400) K/uL MPV 11.30 (7.40-12.00) fL Neut % (Auto) 74.2 (48.0-80.0) % Lymph % (Auto) 14.7 L (16.0-40.0) % [place] % (Auto) 9.8 (0.0-15.0) % Eos % (Auto) 0.9 (0.0-7.0) % Baso % (Auto) 0.4 (0.0-1.5) % Neut # (Auto) 6.1 H (1.4-5.7) K/uL Lymph # (Auto) 1.2 (0.6-2.4) K/uL [place] # (Auto) 0.8 (0.0-0.8) K/uL Eos # (Auto) 0.1 (0.0-0.7) K/uL Baso # (Auto) 0.0 (0.0-0.1) K/uL Nucleated RBC % 0.0 /100WBC Nucleated RBCs # 0 K/uL INR 1.24 APTT (18.6-31.3) SEC Sodium 140 (136-145) mmol/L Potassium 4.9 (3.5-5.1) mmol/L Chloride 107 (98-107) mmol/L Carbon Dioxide 25.0 (21.0-32.0) mmol/L BUN 31 H (7.0-18.0) mg/dL Creatinine 1.6 H (0.6-1.0) mg/dL Est Cr Clr Drug Dosing 20.14 mL/min Estimated GFR (MDRD) 31.0 ml/min Glucose 160 H (74-106) mg/dL Calcium 9.4 (8.5-10.1) mg/dL Total Bilirubin 2.1 H (0.2-1.0) mg/dL AST 19 (15-37) IU/L ALT 21 (14-63) IU/L Alkaline Phosphatase 100 (46-116) U/L Troponin I 0.367 H* (0.000-0.056) ng/mL B-Natriuretic Peptide (<100) PG/ML Total Protein 7.9 (6.4-8.2) g/dL Albumin 3.0 L (3.4-5.0) g/dL Globulin 4.9 H (2.0-3.5) g/dL Albumin/Globulin Ratio 0.6 L (1.3-2.8) 04/13/18 04/13/18 04/13/18 Range/Units 15:54 20:22 22:20 WBC (4.0-11.0) K/uL RBC (4.30-5.90) M/uL Hgb (12.0-16.0) g/dL Hct (36.0-46.0) % MCV (80.0-98.0) fL MCH (27.0-32.0) pg MCHC (31.0-37.0) g/dL RDW Std Deviation (28.0-62.0) fl RDW Coeff of Hannah (11.0-15.0) % Plt Count (150-400) K/uL MPV (7.40-12.00) fL Neut % (Auto) (48.0-80.0) % Lymph % (Auto) (16.0-40.0) % [place] % (Auto) (0.0-15.0) % Eos % (Auto) (0.0-7.0) % Baso % (Auto) (0.0-1.5) % Neut # (Auto) (1.4-5.7) K/uL Lymph # (Auto) (0.6-2.4) K/uL [place] # (Auto) (0.0-0.8) K/uL Eos # (Auto) (0.0-0.7) K/uL Baso # (Auto) (0.0-0.1) K/uL Nucleated RBC % /100WBC Nucleated RBCs # K/uL INR APTT 27.1 (18.6-31.3) SEC Sodium (136-145) mmol/L Potassium (3.5-5.1) mmol/L Chloride (98-107) mmol/L Carbon Dioxide (21.0-32.0) mmol/L BUN (7.0-18.0) mg/dL Creatinine (0.6-1.0) mg/dL Est Cr Clr Drug Dosing mL/min Estimated GFR (MDRD) ml/min Glucose (74-106) mg/dL Calcium (8.5-10.1) mg/dL Total Bilirubin (0.2-1.0) mg/dL AST (15-37) IU/L ALT (14-63) IU/L Alkaline Phosphatase (46-116) U/L Troponin I 0.386 H* (0.000-0.056) ng/mL B-Natriuretic Peptide > 3306 H (<100) PG/ML Total Protein (6.4-8.2) g/dL Albumin (3.4-5.0) g/dL Globulin (2.0-3.5) g/dL Albumin/Globulin Ratio (1.3-2.8) 04/14/18 04/14/18 04/14/18 Range/Units 02:45 04:00 04:00 WBC 6.00 (4.0-11.0) K/uL RBC 4.14 L (4.30-5.90) M/uL Hgb 11.4 L (12.0-16.0) g/dL Hct 36.2 (36.0-46.0) % MCV 87.4 (80.0-98.0) fL MCH 27.5 (27.0-32.0) pg MCHC 31.5 (31.0-37.0) g/dL RDW Std Deviation 58.3 (28.0-62.0) fl RDW Coeff of Hannah 18 H (11.0-15.0) % Plt Count 232 (150-400) K/uL MPV 11.20 (7.40-12.00) fL Neut % (Auto) 92.7 H (48.0-80.0) % Lymph % (Auto) 5.7 L (16.0-40.0) % [place] % (Auto) 1.2 (0.0-15.0) % Eos % (Auto) 0.2 (0.0-7.0) % Baso % (Auto) 0.2 (0.0-1.5) % Neut # (Auto) 5.6 (1.4-5.7) K/uL Lymph # (Auto) 0.3 L (0.6-2.4) K/uL [place] # (Auto) 0.1 (0.0-0.8) K/uL Eos # (Auto) 0.0 (0.0-0.7) K/uL Baso # (Auto) 0.0 (0.0-0.1) K/uL Nucleated RBC % 0.0 /100WBC Nucleated RBCs # 0 K/uL INR APTT 74.2 H (18.6-31.3) SEC Sodium 139 (136-145) mmol/L Potassium 3.8 (3.5-5.1) mmol/L Chloride 105 (98-107) mmol/L Carbon Dioxide 27.5 (21.0-32.0) mmol/L BUN 26 H (7.0-18.0) mg/dL Creatinine 1.4 H (0.6-1.0) mg/dL Est Cr Clr Drug Dosing 25.35 mL/min Estimated GFR (MDRD) 36.2 ml/min Glucose 159 H (74-106) mg/dL Calcium 8.7 (8.5-10.1) mg/dL Total Bilirubin 2.3 H (0.2-1.0) mg/dL AST 13 L (15-37) IU/L ALT 17 (14-63) IU/L Alkaline Phosphatase 99 (46-116) U/L Troponin I (0.000-0.056) ng/mL B-Natriuretic Peptide (<100) PG/ML Total Protein 7.1 (6.4-8.2) g/dL Albumin 2.7 L (3.4-5.0) g/dL Globulin 4.4 H (2.0-3.5) g/dL Albumin/Globulin Ratio 0.6 L (1.3-2.8) 04/14/18 04/14/18 Range/Units 04:00 08:35 WBC (4.0-11.0) K/uL RBC (4.30-5.90) M/uL Hgb (12.0-16.0) g/dL Hct (36.0-46.0) % MCV (80.0-98.0) fL MCH (27.0-32.0) pg MCHC (31.0-37.0) g/dL RDW Std Deviation (28.0-62.0) fl RDW Coeff of Hannah (11.0-15.0) % Plt Count (150-400) K/uL MPV (7.40-12.00) fL Neut % (Auto) (48.0-80.0) % Lymph % (Auto) (16.0-40.0) % [place] % (Auto) (0.0-15.0) % Eos % (Auto) (0.0-7.0) % Baso % (Auto) (0.0-1.5) % Neut # (Auto) (1.4-5.7) K/uL Lymph # (Auto) (0.6-2.4) K/uL [place] # (Auto) (0.0-0.8) K/uL Eos # (Auto) (0.0-0.7) K/uL Baso # (Auto) (0.0-0.1) K/uL Nucleated RBC % /100WBC Nucleated RBCs # K/uL INR APTT 50.8 H (18.6-31.3) SEC Sodium (136-145) mmol/L Potassium (3.5-5.1) mmol/L Chloride (98-107) mmol/L Carbon Dioxide (21.0-32.0) mmol/L BUN (7.0-18.0) mg/dL Creatinine (0.6-1.0) mg/dL Est Cr Clr Drug Dosing mL/min Estimated GFR (MDRD) ml/min Glucose (74-106) mg/dL Calcium (8.5-10.1) mg/dL Total Bilirubin (0.2-1.0) mg/dL AST (15-37) IU/L ALT (14-63) IU/L Alkaline Phosphatase (46-116) U/L Troponin I 0.316 H* (0.000-0.056) ng/mL B-Natriuretic Peptide (<100) PG/ML Total Protein (6.4-8.2) g/dL Albumin (3.4-5.0) g/dL Globulin (2.0-3.5) g/dL Albumin/Globulin Ratio (1.3-2.8) Med Orders - Current: Current Medications Acetaminophen (Tylenol Extra Strength) 500 mg PO Q8H PRN PRN Reason: Pain Last Admin: 04/13/18 17:46 Dose: 500 mg Aspirin (Aspirin) 81 mg PO DAILY [facility] Last Admin: 04/14/18 09:20 Dose: Not Given Clopidogrel Bisulfate (Plavix) 75 mg PO DAILY [facility] Last Admin: 04/14/18 08:59 Dose: 75 mg Diltiazem HCl (Cardizem Cd) 180 mg PO DAILY [facility] Last Admin: 04/14/18 08:58 Dose: 180 mg Heparin Sodium/Sodium Chloride (Heparin-1/2ns 25,000 Units/500) 25,000 unit in 500 mls @ 16.22 mls/hr IV TITRATE [facility]; Protocol Last Titration: 04/14/18 09:00 Dose: 10 units/kg/hr, 13.517 mls/hr Piperacillin Sod/Tazobactam (Sod 2.25 gm/ Sodium Chloride) 50 mls @ 100 mls/hr IV Q8H [facility] Last Admin: 04/14/18 12:30 Dose: 100 mls/hr Vancomycin HCl 1 gm/ Sodium (Chloride) 250 mls @ 166 mls/hr IV Q24H [facility] Levofloxacin/Dextrose 750 mg/ (Premix) 150 mls @ 100 mls/hr IV Q48H [facility] Losartan Potassium (Cozaar) 12.5 mg PO DAILY [facility] Last Admin: 04/14/18 08:56 Dose: 12.5 mg Methylprednisolone Sodium Succinate (Solu-Medrol) 40 mg IVPUSH Q6H [facility] Last Admin: 04/14/18 12:16 Dose: 40 mg Metoprolol Tartrate (Lopressor) 50 mg PO DAILY [facility] Last Admin: 04/14/18 08:58 Dose: 50 mg Morphine Sulfate (Morphine) 2 mg IVPUSH Q2H PRN PRN Reason: Chest Pain Last Admin: 04/13/18 21:39 Dose: 2 mg Nitroglycerin (Nitro-Bid 2%) 1 gm TOP Q6H PRN PRN Reason: Chest Pain Omeprazole (Omeprazole) 20 mg PO ACBREAKFAST [facility] Last Admin: 04/14/18 06:47 Dose: 20 mg Potassium Chloride (Klor-Con 10) 10 meq PO BID [facility] Last Admin: 04/14/18 08:58 Dose: 10 meq Sodium Chloride (Saline Flush) 10 ml FLUSH ASDIRECTED PRN PRN Reason: Keep Vein Open Sodium Chloride (Saline Flush) 2.5 ml FLUSH ASDIRECTED PRN PRN Reason: Keep Vein Open Sodium Chloride (Saline Flush) 10 ml FLUSH ASDIRECTED PRN PRN Reason: Keep Vein Open Sodium Chloride (Saline Flush) 2.5 ml FLUSH ASDIRECTED PRN PRN Reason: Keep Vein Open Tramadol HCl (Ultram) 100 mg PO Q12H PRN PRN Reason: pain Vancomycin HCl (Pharmacy To Dose - Vancomycin) 0 dose .XX ASDIRECTED [facility] Discontinued Medications Aspirin (Aspirin) 81 mg PO DAILY [facility] Last Admin: 04/14/18 08:58 Dose: 81 mg Atorvastatin Calcium (Lipitor) 80 mg PO ONETIME ONE Stop: 04/13/18 17:51 Last Admin: 04/13/18 18:10 Dose: 80 mg Clopidogrel Bisulfate (Plavix) 600 mg PO ONETIME ONE Stop: 04/13/18 17:52 Last Admin: 04/13/18 18:10 Dose: 600 mg Furosemide (Lasix) 60 mg PO DAILY [facility] Furosemide (Lasix) 60 mg IVPUSH BID ONE Stop: 04/13/18 17:34 Last Admin: 04/13/18 18:38 Dose: 60 mg Heparin Sodium (Porcine) (Heparin Sodium) 4,000 units IVPUSH ONETIME ONE Stop: 04/13/18 20:08 Last Admin: 04/13/18 21:22 Dose: 4,000 units Levofloxacin/Dextrose 750 mg/ (Premix) 150 mls @ 100 mls/hr IV ONETIME ONE Stop: 04/13/18 22:57 Last Admin: 04/13/18 23:04 Dose: 100 mls/hr Vancomycin HCl 1 gm/ Sodium (Chloride) 250 mls @ 166 mls/hr IV Q24H [facility] Last Admin: 04/14/18 00:51 Dose: 166 mls/hr Methylprednisolone Sodium Succinate (Solu-Medrol) 125 mg IVPUSH ONETIME ONE Stop: 04/13/18 21:39 Last Admin: 04/13/18 21:52 Dose: 125 mg - Exam Quality Assessment: Supplemental Oxygen (3) General: Alert, Oriented HEENT: Pupils Equal, Pupils Reactive Neck: Supple, Trachea Midline, No JVD Lungs: Clear to Auscultation, Normal Respiratory Effort Cardiovascular: Irregular Rhythm GI/Abdominal Exam: Normal Bowel Sounds, Soft, Non-Tender, No Organomegaly, No Distention Extremities: Normal Inspection Skin: Warm, Dry Wound/Incisions: Healing Well Neurological: No New Focal Deficit Psy/Mental Status: Alert, Normal Affect, Normal Mood - Problem List & Annotations (1) Hypoxia SNOMED Code(s): 570504978 Code(s): R09.02 - HYPOXEMIA Status: Acute Current Visit: Yes (2) Pleural effusion SNOMED Code(s): 48240208 Code(s): J90 - PLEURAL EFFUSION, NOT ELSEWHERE CLASSIFIED Status: Acute Current Visit: Yes (3) CHF (congestive heart failure) SNOMED Code(s): 30386640 Code(s): I50.9 - HEART FAILURE, UNSPECIFIED Status: Acute Priority: High Current Visit: No Qualifiers: Heart failure type: systolic Heart failure chronicity: acute on chronic Qualified Code(s): I50.23 - Acute on chronic systolic (congestive) heart failure (4) Pneumonia SNOMED Code(s): 974714407 Code(s): J18.9 - PNEUMONIA, UNSPECIFIED ORGANISM Status: Acute Current Visit: No Qualifiers: Pneumonia type: due to unspecified organism Laterality: left Lung location: lower lobe of lung Qualified Code(s): J18.1 - Lobar pneumonia, unspecified organism - Problem List Review Problem List Initiated/Reviewed/Updated: Yes - My Orders Last 24 Hours: My Active Orders 04/13/18 17:29 Cardiac Monitoring [RC] Q8H Up ad Romina [RC] ASDIRECTED VTE/DVT Education [RC] PER UNIT ROUTINE Vital Signs [RC] Q4H Sodium Chloride 0.9% [Saline Flush] 10 ml FLUSH ASDIRECTED PRN Sodium Chloride 0.9% [Saline Flush] 2.5 ml FLUSH ASDIRECTED PRN Peripheral IV Insertion Adult [OM.PC] Routine Resuscitation Status Routine 04/13/18 17:30 Acetaminophen [Tylenol Extra Strength] 500 mg PO Q8H PRN traMADol [Ultram] 100 mg PO Q12H PRN Sequential Compression Device [OM.PC] Per Unit Routine 04/13/18 17:50 Nitroglycerin [Nitro-Bid 2%] 1 gm TOP Q6H PRN 04/13/18 20:15 Heparin Sod,Pork In 0.45% Nacl [Heparin-1/2Ns 25,000 Units/500] 25,000 unit in 500 ml IV TITRATE 04/13/18 21:00 Potassium Chloride [Klor-Con 10] 10 meq PO BID 04/13/18 21:26 Morphine 2 mg IVPUSH Q2H PRN 04/13/18 21:30 EKG 12 Lead [EKG Documentation Completion] [RC] STAT Piperacillin/Tazobactam [Zosyn] 2.25 gm Sodium Chloride 0.9% [Normal Saline] 50 ml IV Q8H 04/13/18 21:45 Vancomycin Pharmacy to Dose [Pharmacy to Dose - Vancomycin] See Dose Instructions .XX ASDIRECTED 04/13/18 22:20 CULTURE BLOOD [BC] Routine PROCALCITONIN [REF] Stat 04/13/18 Dinner 2 Gram Sodium Diet [DIET] 04/14/18 01:10 Echo Comp wo Cont [US] Routine 04/14/18 07:30 Omeprazole 20 mg PO ACBREAKFAST 04/14/18 08:29 Notify Provider Consults [RC] ASDIRECTED Consult to Physician [CONS] Routine 04/14/18 09:00 Aspirin 81 mg PO DAILY Clopidogrel [Plavix] 75 mg PO DAILY Diltiazem [Cardizem CD] 180 mg PO DAILY Losartan [Cozaar] 12.5 mg PO DAILY Metoprolol Tartrate [Lopressor] 50 mg PO DAILY 04/14/18 11:30 methylPREDNISolone Sod Succ [Solu-MEDROL] 40 mg IVPUSH Q6H 04/14/18 12:54 PT Evaluation and Treatment [CONS] Routine 04/14/18 14:30 aPTT [PTT,PARTIAL THROMBOPLSTIN TIME] [COAG] Q6H 04/14/18 20:30 aPTT [PTT,PARTIAL THROMBOPLSTIN TIME] [COAG] Q6H 04/15/18 00:00 Vancomycin [Vancocin] 1 gm Sodium Chloride 0.9% [Normal Saline] 250 ml IV Q24H 04/15/18 02:30 aPTT [PTT,PARTIAL THROMBOPLSTIN TIME] [COAG] Q6H 04/15/18 05:11 CBC WITH AUTO DIFF [HEME] AM COMPREHENSIVE METABOLIC PN,CMP [CHEM] AM 04/15/18 08:30 aPTT [PTT,PARTIAL THROMBOPLSTIN TIME] [COAG] Q6H Levofloxacin/Dextrose 5%-Water [Levaquin in D5W 750 MG/150 ML] 750 mg Premix Bag 1 bag IV Q48H 04/15/18 14:30 aPTT [PTT,PARTIAL THROMBOPLSTIN TIME] [COAG] Q6H 04/16/18 05:11 CBC WITH AUTO DIFF [HEME] AM COMPREHENSIVE METABOLIC PN,CMP [CHEM] AM - Plan Plan:: Assessment and plan Demand ischemia of the heart and elevated troponins- discussed patient with cardiology -medical telemetry aspirin to 325 mg by mouth daily and Plavix 75 mg by mouth daily , atorvastatin 80 mg by mouth 1 dose and continue heparin drip for a total of 48 h . Cardiac echo done , patient dw design project manager , agree with treatment , he said Stress test as outpatient . Nitroglycerin 1 g topical every 6 hours when necessary for chest pain CHF - lasix 60 mg iv q 12 h , supplement electrolytes , fluid restriction at 1800 cc / day For the pneumonia f/up blood cultures , continue vancomycin as per pharmacy Zosyn 2.5 grams q 8 h and Levaquin 750 mg every 48 hours. For the atrial fibrillation will continue patient with cardiazem 180 mg by mouth daily and metoprolol tartrate 50 mg by mouth daily. Cordell tart patient on coumadine. For GI prophylaxis omeprazole 20 mg by mouth daily
--- NOTE | 2018-04-14 14:10 | US ---
EXAMINATION: Ultrasound guided left thoracentesis. HISTORY: Left pleural effusion. Technique/findings: The procedure, benefits and risks were discussed with the patient. Following wr itten informed consent was obtained from the patient, under ultrasound guidance and utilizing 1% lido jamir as local anesthesia the left pleural effusion was accessed using a 5 [place] one-step needle. F ollowing access the catheter was placed into the effusion, 600 cc of pleural effusion was drained. U S images demonstrate near complete resolution of the pleural effusion. The patient tolerated the proc edure well. IMPRESSION: Successful ultrasound guided left thoracentesis. Fluid was light brown.
[2018-04-14] MEDS ORDERED: Furosemide 40 MG/4 ML VIAL IVPUSH ONE (16:53)
[2018-04-14] MEDS ORDERED: Heparin Sodium 5,000 Units/ML Vial IVPUSH ONE (21:21)
[2018-04-14] MEDS ORDERED: Docusate Sodium 100 MG Cap PO PRN (23:47)
[2018-04-14] MEDS: Warfarin 5 MG Tab PO SCH (23:51)
[2018-04-15] MEDS: methylPREDNISolone Sodium Succinate 40 MG/1 ML SDV IVPUSH SCH ×2 (05:26→11:02)
[2018-04-15] MEDS: Piperacillin/Tazobactam 2.25 GM in Sodium Chloride 0.9% 50 ML IV SCH (05:28)
[2018-04-15] MEDS: Omeprazole 20 MG Cap.CR PO SCH (06:32)
[2018-04-15] MEDS: Potassium Chloride 10 MEQ Tab.ER PO SCH (08:16)
[2018-04-15] MEDS: Aspirin 81 MG Tab.Chew PO SCH (08:16)
[2018-04-15] MEDS: Metoprolol Tartrate 50 MG Tab PO SCH (08:16)
[2018-04-15] MEDS: Clopidogrel 75 MG Tab PO SCH (08:16)
[2018-04-15] MEDS: Diltiazem 180 MG Cap.CD PO SCH (08:16)
[2018-04-15] MEDS: Furosemide 40 MG/4 ML VIAL IVPUSH SCH ×2 (08:17→13:57)
[2018-04-15] MEDS: Losartan 50 MG Tab PO SCH (08:17)
[2018-04-15] MEDS ORDERED: Levofloxacin/Dextrose 5%-Water 750 MG in Premix Bag 1 BAG IV SCH (08:30)
[2018-04-15] MEDS: Warfarin 5 MG Tab PO SCH (14:04)
[2018-04-15] MEDS ORDERED: Enoxaparin 100 MG/1 ML Syringe SUBCUT ONE (14:06)
--- NOTE | 2018-04-15 22:11 | PCM.DCSUM1 ---
Discharge Summary - Hospital Course Diagnosis: Stroke: No - Discharge Data Discharge Disposition: Home, Self-Care 01 Condition: Stable - Discharge Diagnosis/Problem(s) (1) Hypoxia SNOMED Code(s): 192720931 ICD Code: R09.02 - HYPOXEMIA Status: Acute (2) Pleural effusion SNOMED Code(s): 18410394 ICD Code: J90 - PLEURAL EFFUSION, NOT ELSEWHERE CLASSIFIED Status: Acute (3) CHF (congestive heart failure) SNOMED Code(s): 78898671 ICD Code: I50.9 - HEART FAILURE, UNSPECIFIED Status: Acute Priority: High Qualifiers: Heart failure type: systolic Heart failure chronicity: acute on chronic Qualified Code(s): I50.23 - Acute on chronic systolic (congestive) heart failure (4) Pneumonia SNOMED Code(s): 470112166 ICD Code: J18.9 - PNEUMONIA, UNSPECIFIED ORGANISM Status: Acute Qualifiers: Pneumonia type: due to unspecified organism Laterality: left Lung location: lower lobe of lung Qualified Code(s): J18.1 - Lobar pneumonia, unspecified organism - Patient Summary/Data Consults: Consultations 04/14/18 08:29 Consult to Physician [CONS] Routine 04/14/18 12:54 PT Evaluation and Treatment [CONS] Routine - Patient Instructions Diet: Usual Diet as Tolerated Activity: As Tolerated Driving: May Drive Today Showering/Bathing: May Shower - Discharge Plan Prescriptions/Med Rec: Docusate Sodium [Colace] 100 mg PO BID PRN #60 cap PRN Reason: Constipation predniSONE 40 mg PO WITHBREAKFAST #3 tab Warfarin [Coumadin] 5 mg PO 1400 #3 tablet Home Medications: Home Meds Potassium Chloride [Klor-Con 10] 10 meq PO BID 09/09/17 [History] Omeprazole 20 mg PO ACBREAKFAST 10/06/17 [History] Acetaminophen [Tylenol Extra Strength] 500 mg PO Q8H PRN 01/30/18 [History] Aspirin 81 mg PO DAILY 01/30/18 [History] Diltiazem HCl [Dilt-Xr] 180 mg PO DAILY 01/30/18 [History] Furosemide [Lasix] 60 mg PO DAILY 01/30/18 [History] Metoprolol Tartrate 50 mg PO DAILY 01/30/18 [History] traMADol [Ultram] 100 mg PO Q12H PRN 01/30/18 [History] Losartan [Cozaar] 12.5 mg PO DAILY 04/13/18 [History] Docusate Sodium [Colace] 100 mg PO BID PRN #60 cap 04/15/18 [Rx] Warfarin [Coumadin] 5 mg PO 1400 #3 tablet 04/15/18 [Rx] predniSONE 40 mg PO WITHBREAKFAST #3 tab 04/15/18 [Rx] Patient Handouts: Warfarin tablets, Pleural Effusion, Prednisone tablets, Docusate capsules Referrals: Chastity Munoz MD [Physician] - 05/13/18 11:30 am Charly Nicole MD [Physician] - 05/05/18 12:45 pm - Patient Data Vitals - Most Recent: Last Vital Signs Temp 96.0 F 04/15/18 15:35 Pulse 52 L 04/15/18 15:35 Resp 20 04/15/18 15:35 BP 137/68 04/15/18 15:35 Pulse Ox 94 L 04/15/18 15:35 Weight - Most Recent: 149 lb I&O - Last 24 hours: Intake & Output 04/15/18 04/15/18 04/15/18 06:59 14:59 22:59 Intake Total 630 650 350 Output Total 700 1000 150 Balance -70 -350 200 Lab Results - Last 24 hrs: Laboratory Results - last 24 hr 04/13/18 04/15/18 04/15/18 Range/Units 22:20 02:25 05:00 WBC 7.72 (4.0-11.0) K/uL RBC 3.78 L (4.30-5.90) M/uL Hgb 10.2 L (12.0-16.0) g/dL Hct 32.9 L (36.0-46.0) % MCV 87.0 (80.0-98.0) fL MCH 27.0 (27.0-32.0) pg MCHC 31.0 (31.0-37.0) g/dL RDW Std Deviation 56.3 (28.0-62.0) fl RDW Coeff of Hannah 18 H (11.0-15.0) % Plt Count 213 (150-400) K/uL MPV 11.40 (7.40-12.00) fL Neut % (Auto) 90.4 H (48.0-80.0) % Lymph % (Auto) 6.6 L (16.0-40.0) % Ashley % (Auto) 3.0 (0.0-15.0) % Eos % (Auto) 0.0 (0.0-7.0) % Baso % (Auto) 0.0 (0.0-1.5) % Neut # (Auto) 7.0 H (1.4-5.7) K/uL Lymph # (Auto) 0.5 L (0.6-2.4) K/uL Ashley # (Auto) 0.2 (0.0-0.8) K/uL Eos # (Auto) 0.0 (0.0-0.7) K/uL Baso # (Auto) 0.0 (0.0-0.1) K/uL Nucleated RBC % 0.0 /100WBC Nucleated RBCs # 0 K/uL INR APTT 59.9 H (18.6-31.3) SEC Sodium (136-145) mmol/L Potassium (3.5-5.1) mmol/L Chloride (98-107) mmol/L Carbon Dioxide (21.0-32.0) mmol/L BUN (7.0-18.0) mg/dL Creatinine (0.6-1.0) mg/dL Est Cr Clr Drug Dosing mL/min Estimated GFR (MDRD) ml/min Glucose (74-106) mg/dL Calcium (8.5-10.1) mg/dL Total Bilirubin (0.2-1.0) mg/dL AST (15-37) IU/L ALT (14-63) IU/L Alkaline Phosphatase (46-116) U/L Total Protein (6.4-8.2) g/dL Albumin (3.4-5.0) g/dL Globulin (2.0-3.5) g/dL Albumin/Globulin Ratio (1.3-2.8) Procalcitonin <0.05 (<0.10) ng/mL 04/15/18 04/15/18 04/15/18 Range/Units 05:00 05:00 08:35 WBC (4.0-11.0) K/uL RBC (4.30-5.90) M/uL Hgb (12.0-16.0) g/dL Hct (36.0-46.0) % MCV (80.0-98.0) fL MCH (27.0-32.0) pg MCHC (31.0-37.0) g/dL RDW Std Deviation (28.0-62.0) fl RDW Coeff of Hannah (11.0-15.0) % Plt Count (150-400) K/uL MPV (7.40-12.00) fL Neut % (Auto) (48.0-80.0) % Lymph % (Auto) (16.0-40.0) % Ashley % (Auto) (0.0-15.0) % Eos % (Auto) (0.0-7.0) % Baso % (Auto) (0.0-1.5) % Neut # (Auto) (1.4-5.7) K/uL Lymph # (Auto) (0.6-2.4) K/uL Ashley # (Auto) (0.0-0.8) K/uL Eos # (Auto) (0.0-0.7) K/uL Baso # (Auto) (0.0-0.1) K/uL Nucleated RBC % /100WBC Nucleated RBCs # K/uL INR 1.20 APTT 49.8 H (18.6-31.3) SEC Sodium 140 (136-145) mmol/L Potassium 3.5 (3.5-5.1) mmol/L Chloride 105 (98-107) mmol/L Carbon Dioxide 26.1 (21.0-32.0) mmol/L BUN 31 H (7.0-18.0) mg/dL Creatinine 1.4 H (0.6-1.0) mg/dL Est Cr Clr Drug Dosing 25.35 mL/min Estimated GFR (MDRD) 36.2 ml/min Glucose 139 H (74-106) mg/dL Calcium 8.8 (8.5-10.1) mg/dL Total Bilirubin 1.0 (0.2-1.0) mg/dL AST 8 L (15-37) IU/L ALT 15 (14-63) IU/L Alkaline Phosphatase 77 (46-116) U/L Total Protein 6.5 (6.4-8.2) g/dL Albumin 2.5 L (3.4-5.0) g/dL Globulin 4.0 H (2.0-3.5) g/dL Albumin/Globulin Ratio 0.6 L (1.3-2.8) Procalcitonin (<0.10) ng/mL 04/15/18 Range/Units 14:45 WBC (4.0-11.0) K/uL RBC (4.30-5.90) M/uL Hgb (12.0-16.0) g/dL Hct (36.0-46.0) % MCV (80.0-98.0) fL MCH (27.0-32.0) pg MCHC (31.0-37.0) g/dL RDW Std Deviation (28.0-62.0) fl RDW Coeff of Hannah (11.0-15.0) % Plt Count (150-400) K/uL MPV (7.40-12.00) fL Neut % (Auto) (48.0-80.0) % Lymph % (Auto) (16.0-40.0) % Ashley % (Auto) (0.0-15.0) % Eos % (Auto) (0.0-7.0) % Baso % (Auto) (0.0-1.5) % Neut # (Auto) (1.4-5.7) K/uL Lymph # (Auto) (0.6-2.4) K/uL Ashley # (Auto) (0.0-0.8) K/uL Eos # (Auto) (0.0-0.7) K/uL Baso # (Auto) (0.0-0.1) K/uL Nucleated RBC % /100WBC Nucleated RBCs # K/uL INR APTT 21.9 (18.6-31.3) SEC Sodium (136-145) mmol/L Potassium (3.5-5.1) mmol/L Chloride (98-107) mmol/L Carbon Dioxide (21.0-32.0) mmol/L BUN (7.0-18.0) mg/dL Creatinine (0.6-1.0) mg/dL Est Cr Clr Drug Dosing mL/min Estimated GFR (MDRD) ml/min Glucose (74-106) mg/dL Calcium (8.5-10.1) mg/dL Total Bilirubin (0.2-1.0) mg/dL AST (15-37) IU/L ALT (14-63) IU/L Alkaline Phosphatase (46-116) U/L Total Protein (6.4-8.2) g/dL Albumin (3.4-5.0) g/dL Globulin (2.0-3.5) g/dL Albumin/Globulin Ratio (1.3-2.8) Procalcitonin (<0.10) ng/mL ZAIN Results - Last 24 hrs: Microbiology 04/13/18 22:20 Aerobic Blood Culture - Preliminary Blood - Venous NO GROWTH AFTER 1 DAY Anaerobic Blood Culture - Preliminary NO GROWTH AFTER 1 DAY Med Orders - Current: Current Medications Discontinued Medications Acetaminophen (Tylenol Extra Strength) 500 mg PO Q8H PRN PRN Reason: Pain Last Admin: 04/13/18 17:46 Dose: 500 mg Aspirin (Aspirin) 81 mg PO DAILY [facility] Last Admin: 04/14/18 08:58 Dose: 81 mg Aspirin (Aspirin) 81 mg PO DAILY [facility] Last Admin: 04/15/18 08:16 Dose: 81 mg Atorvastatin Calcium (Lipitor) 80 mg PO ONETIME ONE Stop: 04/13/18 17:51 Last Admin: 04/13/18 18:10 Dose: 80 mg Clopidogrel Bisulfate (Plavix) 600 mg PO ONETIME ONE Stop: 04/13/18 17:52 Last Admin: 04/13/18 18:10 Dose: 600 mg Clopidogrel Bisulfate (Plavix) 75 mg PO DAILY [facility] Last Admin: 04/15/18 08:16 Dose: 75 mg Diltiazem HCl (Cardizem Cd) 180 mg PO DAILY [facility] Last Admin: 04/15/18 08:16 Dose: 180 mg Docusate Sodium (Colace) 100 mg PO BID PRN PRN Reason: Constipation Last Admin: 04/15/18 09:02 Dose: 100 mg Enoxaparin Sodium (Lovenox) 70 mg SUBCUT ONETIME ONE Stop: 04/15/18 14:07 Last Admin: 04/15/18 15:21 Dose: 70 mg Furosemide (Lasix) 60 mg PO DAILY [facility] Furosemide (Lasix) 60 mg IVPUSH BID ONE Stop: 04/13/18 17:34 Last Admin: 04/13/18 18:38 Dose: 60 mg Furosemide (Lasix) 60 mg IVPUSH NOW ONE Stop: 04/14/18 16:54 Last Admin: 04/14/18 17:05 Dose: 60 mg Furosemide (Lasix) 60 mg IVPUSH BIDDIURETIC [facility] Last Admin: 04/15/18 13:57 Dose: Not Given Heparin Sodium (Porcine) (Heparin Sodium) 4,000 units IVPUSH ONETIME ONE Stop: 04/13/18 20:08 Last Admin: 04/13/18 21:22 Dose: 4,000 units Heparin Sodium (Porcine) (Heparin Sodium) 2,000 units IVPUSH .BOLUS ONE Stop: 04/14/18 21:22 Last Admin: 04/14/18 21:26 Dose: 2,000 units Heparin Sodium/Sodium Chloride (Heparin-1/2ns 25,000 Units/500) 25,000 unit in 500 mls @ 16.22 mls/hr IV TITRATE [facility]; Protocol Last Titration: 04/14/18 21:23 Dose: 11 units/kg/hr, 14.869 mls/hr Levofloxacin/Dextrose 750 mg/ (Premix) 150 mls @ 100 mls/hr IV ONETIME ONE Stop: 04/13/18 22:57 Last Admin: 04/13/18 23:04 Dose: 100 mls/hr Piperacillin Sod/Tazobactam (Sod 2.25 gm/ Sodium Chloride) 50 mls @ 100 mls/hr IV Q8H [facility] Last Infusion: 04/15/18 06:00 Dose: Infused Vancomycin HCl 1 gm/ Sodium (Chloride) 250 mls @ 166 mls/hr IV Q24H [facility] Last Admin: 04/14/18 00:51 Dose: 166 mls/hr Vancomycin HCl 1 gm/ Sodium (Chloride) 250 mls @ 166 mls/hr IV Q24H [facility] Last Infusion: 04/15/18 01:35 Dose: Infused Levofloxacin/Dextrose 750 mg/ (Premix) 150 mls @ 100 mls/hr IV Q48H [facility] Last Admin: 04/15/18 08:54 Dose: 100 mls/hr Losartan Potassium (Cozaar) 12.5 mg PO DAILY [facility] Last Admin: 04/15/18 08:17 Dose: 12.5 mg Methylprednisolone Sodium Succinate (Solu-Medrol) 125 mg IVPUSH ONETIME ONE Stop: 04/13/18 21:39 Last Admin: 04/13/18 21:52 Dose: 125 mg Methylprednisolone Sodium Succinate (Solu-Medrol) 40 mg IVPUSH Q6H [facility] Last Admin: 04/15/18 11:02 Dose: 40 mg Metoprolol Tartrate (Lopressor) 50 mg PO DAILY [facility] Last Admin: 04/15/18 08:16 Dose: 50 mg Morphine Sulfate (Morphine) 2 mg IVPUSH Q2H PRN PRN Reason: Chest Pain Last Admin: 04/13/18 21:39 Dose: 2 mg Nitroglycerin (Nitro-Bid 2%) 1 gm TOP Q6H PRN PRN Reason: Chest Pain Omeprazole (Omeprazole) 20 mg PO ACBREAKFAST [facility] Last Admin: 04/15/18 06:32 Dose: 20 mg Potassium Chloride (Klor-Con 10) 10 meq PO BID [facility] Last Admin: 04/15/18 08:16 Dose: 10 meq Sodium Chloride (Saline Flush) 10 ml FLUSH ASDIRECTED PRN PRN Reason: Keep Vein Open Last Admin: 04/14/18 17:17 Dose: 20 ml Sodium Chloride (Saline Flush) 2.5 ml FLUSH ASDIRECTED PRN PRN Reason: Keep Vein Open Sodium Chloride (Saline Flush) 10 ml FLUSH ASDIRECTED PRN PRN Reason: Keep Vein Open Sodium Chloride (Saline Flush) 2.5 ml FLUSH ASDIRECTED PRN PRN Reason: Keep Vein Open Tramadol HCl (Ultram) 100 mg PO Q12H PRN PRN Reason: pain Vancomycin HCl (Pharmacy To Dose - Vancomycin) 0 dose .XX ASDIRECTED [facility] Warfarin Sodium (Coumadin) 5 mg PO 1400 [facility] Last Admin: 04/15/18 14:04 Dose: 5 mg Warfarin Sodium (Coumadin Ask) 1 each PO .PHARMACY TO DOSE [facility]
--- NOTE | 2018-04-16 11:39 | ECHO ---
EXAM DATE: 04/13/18 PATIENT'S AGE: 78 The echocardiogram report can be seen in this patient's EMR (Electronic Medical Record) in the Reports section. The report has also been scanned into PACs. [facility]
== END 2018-04-15 17:43 | disposition home or self-care (01) ==
LOC: MW.ED 15:25 → MW.MS 16:04
PROVIDERS: ADMIT Internal Medicine; ATTEND Internal Medicine
DX: I21.4 Non-ST elevation (NSTEMI) myocardial infarction (principal); J18.1 Lobar pneumonia, unspecified organism; J90 Pleural effusion, not elsewhere classified; I48.91 Unspecified atrial fibrillation; I11.0 Hypertensive heart disease with heart failure; I50.23 Acute on chronic systolic (congestive) heart failure; K21.9 Gastro-esophageal reflux disease without esophagitis; D64.9 Anemia, unspecified; F41.9 Anxiety disorder, unspecified; Z79.02 Long term (current) use of antithrombotics/antiplatelets; Z79.2 Long term (current) use of antibiotics; Z79.82 Long term (current) use of aspirin; Z79.899 Other long term (current) drug therapy; Z87.891 Personal history of nicotine dependence
CPT/HCPCS: 32555; 36415; 71045; 80053; 83880; 84145; 84484; 85025; 85610; 85730; 87040; 93005; 93306; 96365; 96366; 96367; 96372; 96375; 96376; 97161; 99285; A9270; C1729; G0378; J1644; J1650; J1940; J1956; J2270; J2543; J2920; J2930; J3370; J7050